=== PATIENT | male | born 1960 | race Caucasian/White ===

== ENCOUNTER → 2020-01-03 14:23 | Outpatient (BNVA) | payer MEDICAID, SELFPAY | PROVIDERS: PCP Internal Medicine; Referring Provider Internal Medicine; Visit Provider Nurse Practitioner | DX: K59.04 Chronic idiopathic constipation (principal); K21.9 Gastro-esophageal reflux disease without esophagitis; Z79.899 Other long term (current) drug therapy | CPT/HCPCS: 99212 ==

== ENCOUNTER → 2020-04-09 14:57 | Outpatient (BNVA) | payer MEDICAID, SELFPAY | PROVIDERS: PCP Internal Medicine; Visit Provider Nurse Practitioner ==

== ENCOUNTER → 2020-10-01 15:11 | Outpatient (BNVA) | payer MEDICAID, SELFPAY | PROVIDERS: PCP Internal Medicine; Visit Provider Nurse Practitioner ==

== ENCOUNTER → 2020-11-05 15:32 | Outpatient (BNVA) | payer MEDICAID, SELFPAY | PROVIDERS: PCP Internal Medicine; Visit Provider Nurse Practitioner ==

== ENCOUNTER → 2020-11-28 15:21 | Outpatient (BNVA) | payer MEDICAID, SELFPAY | PROVIDERS: PCP Internal Medicine; Visit Provider Nurse Practitioner ==

== ENCOUNTER → 2021-01-23 13:19 | Outpatient (BNVA) | payer MEDICAID, SELFPAY | PROVIDERS: PCP Internal Medicine; Visit Provider Nurse Practitioner ==

== ENCOUNTER → 2021-06-19 16:44 | Outpatient (BNVA) | payer MEDICAID, SELFPAY | PROVIDERS: PCP Internal Medicine; Referring Provider Internal Medicine; Visit Provider Nurse Practitioner | DX: K59.04 Chronic idiopathic constipation (principal); R63.4 Abnormal weight loss; Z55.0 Illiteracy and low-level literacy | CPT/HCPCS: 99212 ==

== ENCOUNTER → 2021-06-25 08:23 | Outpatient (RCR) | payer MEDICAID, SELFPAY ==
--- NOTE | 2020-01-10 16:41 | MHC.PT.EP ---
[facility] [place] Office [place] Office [place] Office [address] Elisha Saavedra [address] [phone] F: [phone] F: [phone] F: [phone] F: [phone] Physical Therapy Plan of Care Date of Evaluation: 01/10/20 Date of Surgery: Diagnosis: L shoulder internal derangement. Assessment: Pt is a 59 y/o male referred to PT for eval and treat of L shoulder internal derangement who presents with L shoulder dysfunction resulting in decreased ability for reaching high shelves, lifting objects of weight, dressing pullovers, performing heavy HH chores, as well as reaching his back and neck for hygiene and dressing secondary to decreased L shoulder ROM and strength, L scapular wing, decreased scapular posture, long Hx of l shoulder dysfunction and pain. Pt is deemed an appropriate candidate to receive skilled PT services to address his physical impairments in order to improve his functional ability. Frequency and Duration: The patient will be seen 2x/ wk x 4 wks. Short Term Goals: In 1 week: initiate HEP with evidence of compliance. Stage Director Goals: In 4 weeks: I with home program. In 4 weeks: Improve L shoulder flexion to > 139 degrees; initial 105 degrees. In 4 weeks: Decreased subjective disability questionnaire (SPADI) by > 12 points. initial: 110/130. Treatment Plan: Modalities to reduce pain, spasms and effusion. Manual therapy to restore motion and function. Therapeutic exercise to improve strength and flexibility. Neuromuscular re-education for posture and balance. Therapeutic activities to return to functional activities of daily living. Please sign and return to therapist. Thank you for your referral.
--- NOTE | 2020-03-11 09:32 | MHC.PT.DC ---
[facility] [place] Office [place] Office [place] Office [address] Delmy Saavedra [address] [phone] F: [phone] F: [phone] F: [phone] F: [phone] Physical Therapy Discharge Report Diagnosis: L shoulder internal derangement. Date of Surgery: Date of Evaluation: 01/10/20 Date of Discharge: 03/11/20 Treatments to Date: 1 Cancellations to Date: 2 No Shows to Date: 2 Discharge Status: Visit Non-compliance Discharge Summary: Pt logged x 2 cancellations and x 2 no-show appointments after attending his initial evaluation and is DC'd per attendance policy. Electronically signed by: Moses Louise PT. Please sign and return to therapist. Thank you for your referral.
== END | disposition home or self-care (01) ==
LOC: HO.PTCHIC 01-10 15:21
PROVIDERS: PCP Internal Medicine; Visit Provider Orthopaedic Surgery
DX: M24.812 Other specific joint derangements of left shoulder, not elsewhere classified (principal)
CPT/HCPCS: 97110; 97162

== ENCOUNTER → 2021-07-11 15:05 | Outpatient (BNVA) | payer MEDICAID, SELFPAY | PROVIDERS: PCP Internal Medicine; Referring Provider Internal Medicine; Visit Provider Nurse Practitioner | DX: K59.04 Chronic idiopathic constipation (principal); K21.9 Gastro-esophageal reflux disease without esophagitis; R14.0 Abdominal distension (gaseous); R63.4 Abnormal weight loss; Z55.0 Illiteracy and low-level literacy | CPT/HCPCS: 99212 ==

== ENCOUNTER → 2021-08-11 15:09 | Outpatient (BNVA) | payer MEDICAID, SELFPAY | PROVIDERS: PCP Internal Medicine; Visit Provider Nurse Practitioner | DX: K59.04 Chronic idiopathic constipation (principal); K21.9 Gastro-esophageal reflux disease without esophagitis; R14.0 Abdominal distension (gaseous); Z55.0 Illiteracy and low-level literacy | CPT/HCPCS: 99212 ==

== ENCOUNTER 2021-11-12 15:06 | Outpatient (REF) | payer MEDICAID, SELFPAY ==
--- NOTE | ~2021-11-12 | XR_ITS ---
EXAMINATION: XR ABDOMEN COMPLETE CLINICAL INDICATION: Chronic idiopathic constipation COMPARISON: None TECHNIQUE: AP supine and upright views of the abdomen. FINDINGS: There is no free air under the diaphragm. The lung bases are clear. The bowel gas pattern is normal with no evidence of ileus or obstruction. Significant stool is only noted within the ascending colon. Anastomotic suture material projects over the upper abdomen and lower pelvis. Screws and plate and screws transfix left lower rib fractures. No unusual soft tissue calcifications are noted. XR/XR abdomen min 2V IMPRESSION: No evidence of obstruction. Findings are not consistent with constipation.
[2021-11-12 15:35] LABS: MANUAL DIFF FLAG NO
[2021-11-12 16:31] LABS: Appearance Urine Clear; Color Urine Yellow; Glucose Urine UA Negative (Negative); Leukocyte Esterase Urine Trace (Negative); Nitrite Urine Negative (Negative); PH 6.5 (5.0-9.0); Specific Gravity - Urine 1.015 (1.005-1.025); UMIC TRIGGER UACC YES; Urine Blood Large (3+) (Negative); Urine Ketones Negative (Negative); Urine Protein Negative (Neg-Trace)
[2021-11-12 17:43] LABS: Basophils Absolute Auto 0.1 X10*3/uL (0.0-0.2); Basophils Percent Auto 1.1 % (0-2); Eosinophils Absolute Auto 0.2 X10*3/uL (0.0-0.4); Hematocrit 39.6 % (42.0-52.0); Hemoglobin 13.1 g/dl (14.0-18.0); Imm Gran Abs Auto 0.02 X10*3/uL (0.00-0.03); Imm Gran Pct Auto 0.3 % (0.0-0.4); Lymphocytes Absolute Auto 2.5 X10*3/uL (1.2-4.9); Lymphocytes Percent Auto 32.5 % (20-40); Mean Corpuscular HGB Conc 33.1 g/dl (31.0-36.0); Mean Corpuscular Hemoglobin 32.2 pg (27.0-33.0); Mean Corpuscular Volume 97.3 fL (80.0-98.0); Mean Platelet Volume 9.2 fL (9.4-12.4); Monocytes Absolute Auto 0.4 X10*3/uL (0.1-1.2); Monocytes Percent Auto 5.7 % (2-11); Neutrophils Absolute Auto 4.4 x10*3/uL (2.0-8.3); Neutrophils Percent Auto 57.4 % (45-73); Platelet Count 309 X10*3/uL (160-400); Red Blood Count 4.07 X10*6/uL (4.60-5.80); Red Cell Distribution Width 12.8 % (11.0-16.0); White Blood Count 7.6 X10*3/uL (4.8-10.8)
[2021-11-12 18:06] LABS: Bacteria Urine None Seen (None Seen); Hyaline Casts Urine 0-2 /LPF (0-2); RBC Urine >20 /HPF (0-2); Squamous Epithelial Cell Urine 0-2 /HPF (0-2); WBC Urine 0-5 /HPF (0-5)
[2021-11-12 18:08] LABS: Alanine Aminotransferase 12 U/L (0-40); Albumin Level 4.6 g/dL (3.5-5.0); Alkaline Phosphatase 77 U/L (39-117); Anion Gap 16 (12-20); Aspartate Amino Transferase 19 U/L (5-37); Bilirubin Total 0.7 mg/dL (0.0-1.0); Blood Urea Nitrogen 12 mg/dL (9-16); Calcium 9.5 mg/dL (8.4-10.2); Carbon Dioxide 29 mmol/L (22-29); Chloride 101 mmol/L (96-108); Estimated Glomerular Filt Rate > 60; Glucose Random 81 mg/dL (60-115); Potassium 4.7 mmol/L (3.3-5.1); Sodium 141 mmol/L (135-145); Total Protein 7.3 g/dL (6.5-8.0)
[2021-11-12 18:18] LABS: TSH reflex Free T4 10.19 uIU/mL (0.32-4.0)
[2021-11-12 18:57] LABS: Free T4 (Free Thyroxine) 1.23 ng/dL (0.71-1.85)
== END 2021-11-12 15:07 | disposition home or self-care (01) ==
LOC: HO.LAB 15:06
PROVIDERS: PCP Internal Medicine; Visit Provider Nurse Practitioner
DX: R63.4 Abnormal weight loss (principal); K59.04 Chronic idiopathic constipation; K21.9 Gastro-esophageal reflux disease without esophagitis; R14.0 Abdominal distension (gaseous); Z55.0 Illiteracy and low-level literacy
CPT/HCPCS: 36415; 74019; 80053; 81001; 84439; 84443; 85025; 99212

== ENCOUNTER → 2022-01-13 16:07 | Outpatient (BNVA) | payer MEDICAID, SELFPAY | PROVIDERS: PCP Internal Medicine; Visit Provider Nurse Practitioner | DX: K59.04 Chronic idiopathic constipation (principal); K21.9 Gastro-esophageal reflux disease without esophagitis; R14.0 Abdominal distension (gaseous); R30.0 Dysuria; R63.4 Abnormal weight loss; Z79.899 Other long term (current) drug therapy; Z55.0 Illiteracy and low-level literacy | CPT/HCPCS: 99212 ==

== ENCOUNTER 2022-05-28 11:50 | Outpatient (REF) | payer MEDICAID, SELFPAY | END 2022-05-28 11:51 | disposition home or self-care (01) | LOC: HO.NEURO 11:50 | PROVIDERS: PCP Internal Medicine; Visit Provider Internal Medicine | DX: Z13.89 Encounter for screening for other disorder (principal) ==

== ENCOUNTER → 2022-07-14 14:39 | Outpatient (BNVA) | payer MEDICAID, SELFPAY | PROVIDERS: PCP Internal Medicine; Referring Provider Internal Medicine; Visit Provider Nurse Practitioner | DX: K59.04 Chronic idiopathic constipation (principal); K21.9 Gastro-esophageal reflux disease without esophagitis; R14.0 Abdominal distension (gaseous); G47.00 Insomnia, unspecified; F32.A Depression, unspecified; Z55.0 Illiteracy and low-level literacy; Z79.899 Other long term (current) drug therapy | CPT/HCPCS: 99212 ==

== ENCOUNTER → 2022-08-11 14:35 | Outpatient (BNVA) | payer MEDICAID, SELFPAY | PROVIDERS: PCP Internal Medicine; Visit Provider Nurse Practitioner | DX: K59.04 Chronic idiopathic constipation (principal); K21.9 Gastro-esophageal reflux disease without esophagitis; G47.00 Insomnia, unspecified; Z79.899 Other long term (current) drug therapy; Z55.0 Illiteracy and low-level literacy | CPT/HCPCS: 99212 ==

== ENCOUNTER 2022-10-06 15:18 | Outpatient (REF) | payer MEDICAID, SELFPAY ==
--- NOTE | ~2022-10-06 | US_ITS ---
EXAMINATION: US VENOUS ULTRASOUND WITH DOPPLER LOWER EXTREMITY, BILATERAL CLINICAL INFORMATION: Chronic leg pain with question of DVT COMPARISON: None available. TECHNIQUE: Ultrasound of the deep veins is performed from the hip to the calf with compression sonography and color and pulse Doppler assessment. Spectral analysis with color-flow imaging is performed. FINDINGS: RIGHT: There is normal venous compression and respiratory variation and augmented flow. The visualized common femoral vein, superficial femoral vein, profunda femoral vein, popliteal vein, and the trifurcation region shows no evidence of deep venous thrombosis. There is no significant popliteal fossa cyst. LEFT: There is normal venous compression and respiratory variation and augmented flow. The visualized common femoral vein, superficial femoral vein, profunda femoral vein, popliteal vein, and the trifurcation region shows no evidence of deep venous thrombosis. There is no significant popliteal fossa cyst. If the patient's symptoms persist, followup ultrasound in 5 days 7 days might be of value to exclude proximal propagation from a non-visualized calf vein. US/US venous duplex LE BI IMPRESSION: No DVT demonstrated in either lower extremity.
== END 2022-10-06 15:19 | disposition home or self-care (01) ==
LOC: HO.US 15:18
PROVIDERS: PCP Internal Medicine; Visit Provider Registered Nurse
DX: I83.813 Varicose veins of bilateral lower extremities with pain (principal)
CPT/HCPCS: 93970

== ENCOUNTER 2022-10-13 15:46 | Outpatient (REF) | payer MEDICAID, SELFPAY ==
[2022-10-13 17:33] LABS: MANUAL DIFF FLAG NO
[2022-10-13 17:52] LABS: Basophils Absolute Auto 0.1 X10*3/uL (0.0-0.2); Basophils Percent Auto 0.8 % (0-2); Eosinophils Absolute Auto 0.3 X10*3/uL (0.0-0.4); Hematocrit 42.9 % (42.0-52.0); Hemoglobin 13.9 g/dl (14.0-18.0); Imm Gran Abs Auto 0.05 X10*3/uL (0.00-0.03); Imm Gran Pct Auto 0.6 % (0.0-0.4); Lymphocytes Absolute Auto 2.7 X10*3/uL (1.2-4.9); Lymphocytes Percent Auto 32.5 % (20-40); Mean Corpuscular HGB Conc 32.4 g/dl (31.0-36.0); Mean Corpuscular Hemoglobin 31.4 pg (27.0-33.0); Mean Corpuscular Volume 97.1 fL (80.0-98.0); Mean Platelet Volume 9.1 fL (9.4-12.4); Monocytes Absolute Auto 0.4 X10*3/uL (0.1-1.2); Monocytes Percent Auto 4.8 % (2-11); Neutrophils Absolute Auto 4.8 x10*3/uL (2.0-8.3); Neutrophils Percent Auto 57.3 % (45-73); Platelet Count 318 X10*3/uL (160-400); Red Blood Count 4.42 X10*6/uL (4.60-5.80); Red Cell Distribution Width 13.9 % (11.0-16.0); White Blood Count 8.4 X10*3/uL (4.8-10.8)
[2022-10-13 17:54] LABS: Cholesterol 370 mg/dL (<200); HDL Cholesterol 64 mg/dL (>40); LDL Cholesterol Calculated 231 mg/dL (<100); Triglycerides 378 mg/dL (<150)
[2022-10-13 18:33] LABS: Alanine Aminotransferase 29 U/L (0-40); Albumin Level 4.6 g/dL (3.5-5.0); Alkaline Phosphatase 81 U/L (39-117); Anion Gap 17 (12-20); Aspartate Amino Transferase 30 U/L (5-37); Bilirubin Direct 0.1 mg/dL (0.0-0.5); Bilirubin Total 0.6 mg/dL (0.0-1.0); Blood Urea Nitrogen 16 mg/dL (9-16); Calcium 10.2 mg/dL (8.4-10.2); Carbon Dioxide 28 mmol/L (22-29); Chloride 101 mmol/L (96-108); Estimated Glomerular Filt Rate 45; Glucose Random 81 mg/dL (60-115); Potassium 4.6 mmol/L (3.3-5.1); Sodium 141 mmol/L (135-145); Total Protein 7.6 g/dL (6.5-8.0)
[2022-10-13 18:41] LABS: Prostate Specific Antigen 0.35 ng/mL (<0.05-4.0)
[2022-10-13 18:57] LABS: TSH reflex Free T4 > 100.00 uIU/mL (0.32-4.0)
[2022-10-13 20:07] LABS: Reflex LDLD? No
[2022-10-13 20:17] LABS: Free T4 (Free Thyroxine) < 0.42 ng/dL (0.71-1.85)
[2022-10-14 03:58] LABS: HIV AB/AG Nonreactive (Nonreactive); HIV Num 1 0.06 S/CO (0.00-0.99)
[2022-10-14 03:59] LABS: ~HepC Num1 0.08 S/CO (0.00-0.79); ~Hepatitis C Antibody Nonreactive (Nonreactive)
== END 2022-10-13 15:47 | disposition home or self-care (01) ==
LOC: HO.HHCL 15:46
PROVIDERS: Visit Provider Internal Medicine
DX: Z11.4 Encounter for screening for human immunodeficiency virus [HIV] (principal); I10 Essential (primary) hypertension; E03.9 Hypothyroidism, unspecified
CPT/HCPCS: 36415; 80048; 80061; 80076; 84153; 84439; 84443; 85025; 86803; 87389

== ENCOUNTER 2022-10-21 15:16 | Outpatient (AMB) | payer MEDICAID, SELFPAY ==
--- NOTE | 2022-10-21 15:22 | MHC.OFFVIS ---
Intake Vital Signs 10/21/22 15:23 Height 5 ft 5 in Weight 165 lb 12.602 oz BMI 27.6 BP 132/86 Blood Pressure Location Rt brachial Position Sitting Pulse 62 Intake Visit Reasons: 4 week fu Intake Note: Patient presents to in office follow up for CIC and GERD. CC: Patient reports he was not able to have a BM in 2 weeks but was able to go yesterday and it was diarrhea. He also c/o bloating, abdominal pain, dizziness, nausea, and loss of appetite. Rehabilitation Coordinator Required: No Accompanied by: Self / Same As Patient Allergies ibuprofen [IBUPROFEN] Allergy (Intermediate, Verified 11/06/22 14:46) KIDNEY ISSUES Penicillins [PENICILLINS] Allergy (Intermediate, Verified 11/06/22 14:46) RASH Motrin Allergy (Unknown, Uncoded 07/11/21 15:38) kidney damage Medication List - Last Reconciled 10/21/22 by KURTIS Staley albuterol sulfate 90 mcg/actuation (ProAir HFA) 2 puffs inhalation Q4-6H PRN albuterol sulfate mg inhalation Q4-6H PRN atorvastatin 40 mg PO BEDTIME bisacodyl (Dulcolax (bisacodyl)) 10 mg (2 x 5 mg) PO BEDTIME 30 days epinephrine 0.3 mL IM ONCE PRN fluticasone propionate 50 mcg/actuation 1 spray intranasal BID fluticasone propionate 220 mcg/actuation (Flovent HFA) 1 puff inhalation gabapentin 400 mg PO QID levothyroxine 137 mcg PO QAM linaclotide (Linzess) 72 mcg PO QAM lisinopril-hydrochlorothiazide 10-12.5 mg 1 tab PO QAM methadone 81 mg PO DAILY mirtazapine 15 mg PO BEDTIME montelukast 10 mg PO QAM multivitamin 1 tab PO QPM nicotine 1 patch topical DAILY omega 4-imh-rtk-fish oil 300 mg (120 mg- 180mg)-1,000 mg 1 cap PO omeprazole 40 mg PO DAILY 30 days simethicone 180 mg PO .TIDAC 30 days HPI 4 week fu HPI Details Assessment & Plan (1) Chronic idiopathic constipation: ?Code(s): K59.04 - Chronic idiopathic constipation ?Plan: He never received the mirtazepine becasue he could not find the [employer] [facility], so he has us send it to [facility] on [facility]. He is stable with his CIC and GERD on his omeprazole, Linzess 72 and bisacodyl along with simethicone.? His only other complaint is feeling of discomfort in his ear but we do not have otoscopes available to look at this so I suggest he stop in to see his primary care provider. Return office visit in 4 weeks (2) GERD (gastroesophageal reflux disease): ?Code(s): K21.9 - Gastro-esophageal reflux disease without esophagitis (3) Illiterate: ?Code(s): Z55.0 - Illiteracy and low-level literacy (4) Depression: ?Code(s): F32.A - Depression, unspecified (5) Insomnia: ?Code(s): G47.00 - Insomnia, unspecified ? ? ? Medications: Refilled mirtazapine 15 mg? PO BEDTIME 30 tabs 3RF F32.A - Depression , unspecified ? TODAY'S VISIT He says he has been feeling unwell for a month. He is feeling like his BP is pounding and my arms are pounding and I get up feeling dehydrated. He started with bloating and lack of appetite and he was not moving his bowels. He was continuing his LInzess 72 qod, then he started taking it every day. He has early satiety. The sx slowly worsened with the lack of BM. He continues on the methadone but his dose has been decreased to 81mg. HE has not changed his diet prior to the onset of this. He has not been sleeping in his bed r/t feeling so uncomfortable, he feels very bloated and I can't burp. He then admits that he went w/o his levothyroxine for 3 weeks, and just restarted it this week. Dr. Peterson counselled him this CAN NOT HAPPEN!! And this is the likely reason for all of his current problems. He also is c/o diziness and fatigue. Advised to get Gatoraide and drink instead of water. I will get XR of abd, start a temp rx of reglan qidachs 5mg, and get PA for LInzess 72mcg (he was taking an old dose of higher strenth he had left over at home, the likely cause of diarrhea). He feels he is losing weight. He c/o not being able to take docusate, I am not prescribing this so holding it is okay. ROV 2 weeks. [facility] Medical History Chronic low back pain Depression Erectile dysfunction Hemorrhoids High cholesterol Nephrolithiasis Substance abuse Surgical History Hx of colonoscopy Hx of cystoscopy (~2000) Hx of dilation of urethra (~2000) Hx of hemorrhoidectomy (~2007) Family History Father Emphysema lung Heart disease Mother Diabetes Heart problem HTN (hypertension) Family/Other HTN (hypertension) Heart problem Social History Alcohol intake: current Alcohol intake frequency: does not drink Cigarettes Per Day: 2 Substance Use Type: Marijuana Review of Systems Const Reports fatigue, Denies fever(s), Reports malaise, Denies night sweats, Denies poor appetite and Denies weight loss ENT Reports Normal hearing present, Denies dental pain, Denies dysphagia, Denies hearing loss, Denies mouth pain, Denies odynophagia, Denies throat swelling, Denies tongue swelling and Reports other (Dentition adequate) Card Reports no additional complaints Resp Reports no additional complaints GI Reports abdominal pain, Denies melena, Reports bloating, Denies hematochezia, Reports constipation, Denies GI cramping, Denies dysphagia, Denies excessive flatus, Denies early satiety, Reports heartburn, Denies diarrhea, Denies nausea, Denies odynophagia, Denies vomiting and Denies hematemesis Skin/Breast Denies pruritus, Denies lesions, Denies rash and Denies jaundice Neuro Reports Normal hearing present and Denies Abnormal speech present Endo Reports fatigue Aller/Immun Denies throat swelling and Denies tongue swelling Physical Exam Vital Signs: Last Vital Signs Pulse 62 10/21/22 15:23 BP 132/86 10/21/22 15:23 BMI result Body Mass Index 27.6 Const General: cooperative, no acute distress, well developed and well groomed Nutritional Appearance: well nourished and obese Orientation/consciousness: oriented to person, oriented to place and oriented to time Limitations: No language barrier, ambulation with cane and other limitations HEENT Head: Yes normocephalic and Yes atraumatic Eyes General: appearance normal, both eyes and all related structures Pupils: Equal, round and reactive pupils present Neck Neck: Yes normal visual inspection and Yes no lymphadenopathy Thyroid: Thyroid normal Resp Effort & Inspection: normal respiratory effort and able to speak in complete sentences Auscultation: clear to auscultation bilaterally Cardio Rate: regular rate Rhythm: regular rhythm Heart sounds: Normal, physiologic split S2 sound present Peripheral pulses: radial pulses present and posterior tibial pulses present GI Inspection: No distended, No Abdominal panniculus present and Yes obesity Palpation (GI): Soft to palpation, nontender, no guarding, not rigid and No hepatosplenomegaly present Percussion: Yes normal to percussion Auscultation: normal bowel sounds Rectal Exam - Male: Yes deferred Skin General skin exam: no rashes or lesions noted, turgor normal, skin not dry, no jaundice, No spider nevi and no striae Rashes: no rashes Nails: normal Neuro General: oriented to person, oriented to place and oriented to time Cranial nerves: Yes Equal, round and reactive pupils present and Yes Normal hearing present Speech: No Abnormal speech present Extrem General: Yes normal to inspection, No clubbing, No cyanosis and No edema Psych Appearance: grossly normal and well kempt Mental Status: mental status grossly normal Speech and movement: Normal speech and movement present Affect: normal affect Attitude: cooperative Thought process: Normal thought process present and not confabulating Thought content: Normal thought content present Insight: Limited insight present (Psych) Judgement: Limited judgement present (Psych) Assessment & Plan Assessment & Plan (1) Chronic idiopathic constipation: Code(s): K59.04 - Chronic idiopathic constipation Plan: He says he has been feeling unwell for a month. He is feeling like his BP is pounding and my arms are pounding and I get up feeling dehydrated. He started with bloating and lack of appetite and he was not moving his bowels. He was continuing his LInzess 72 qod, then he started taking it every day. He has early satiety. The sx slowly worsened with the lack of BM. He continues on the methadone but his dose has been decreased to 81mg. HE has not changed his diet prior to the onset of this. He has not been sleeping in his bed r/t feeling so uncomfortable, he feels very bloated and I can't burp. He then admits that he went w/o his levothyroxine for 3 weeks, and just restarted it this week. Dr. Peterson counselled him this CAN NOT HAPPEN!! And this is the likely reason for all of his current problems. He also is c/o diziness and fatigue. Advised to get Gatoraide and drink instead of water. I will get XR of abd, start a temp rx of reglan qidachs 5mg, and get PA for LInzess 72mcg (he was taking an old dose of higher strenth he had left over at home, the likely cause of diarrhea). He feels he is losing weight. He c/o not being able to take docusate, I am not prescribing this so holding it is okay. ROV 2 weeks. (2) Abdominal bloating: Code(s): R14.0 - Abdominal distension (gaseous) (3) Nausea and vomiting: Code(s): R11.2 - Nausea with vomiting, unspecified (4) Hypothyroid: Code(s): E03.9 - Hypothyroidism, unspecified (5) GERD (gastroesophageal reflux disease): Code(s): K21.9 - Gastro-esophageal reflux disease without esophagitis (6) Illiterate: Code(s): Z55.0 - Illiteracy and low-level literacy (7) Insomnia: Code(s): G47.00 - Insomnia, unspecified (8) Depression: Code(s): F32.A - Depression, unspecified Orders: Orders XR abdomen w decubitus 10/21/22 R14.0 - Abdominal distension (gaseous), K59.04 - Chronic idiopathic constipation Medications: New hydrocortisone 2.5% (Proctosol HC) BE SURE TO INCLUDE RECTAL APPICATOR!! 1 appl MD BID 30 grams 6RF hemorrhoids K64.9 - Unspecified hemorrhoids metoclopramide HCl (Reglan) Please verbally instruct patient to take this 4 times a day even if he does not eat. He can not read or write. 5 mg PO QIDACHS 120 tabs 3RF R11.2 - Nausea with vomiting, unspecified Refilled linaclotide (Linzess) 72 mcg PO QAM 30 caps 6RF K59.04 - Chronic idiopathic constipation mirtazapine 15 mg PO BEDTIME 30 tabs 3RF F32.A - Depression, unspecified linaclotide (Linzess) 72 mcg PO QAM 30 caps 6RF K59.04 - Chronic idiopathic constipation simethicone after meals 180 mg PO .TIDAC 90 caps 6RF 30 days R14.0 - Abdominal distension (gaseous) Coding Level of Care Code Est Pt Level 4 (96729) Diagnoses Chronic idiopathic constipation K59.04 Abdominal bloating R14.0 Nausea and vomiting R11.2 Hypothyroid E03.9 GERD (gastroesophageal reflux disease) K21.9 Illiterate Z55.0 Insomnia G47.00 Depression F32.A
[2022-10-21 15:23] VITALS: BP 132/86; PULSE 62; BMI 27.6
== END 2022-10-21 16:09 | disposition home or self-care (01) ==
PROVIDERS: PCP Internal Medicine; Visit Provider Nurse Practitioner
DX: K59.04 Chronic idiopathic constipation (principal); R14.0 Abdominal distension (gaseous); R11.2 Nausea with vomiting, unspecified; E03.9 Hypothyroidism, unspecified; K21.9 Gastro-esophageal reflux disease without esophagitis; Z55.0 Illiteracy and low-level literacy; G47.00 Insomnia, unspecified; F32.A Depression, unspecified
CPT/HCPCS: 99214

== ENCOUNTER → 2022-10-21 15:16 | Outpatient (BNVA) | payer MEDICAID, SELFPAY | PROVIDERS: PCP Internal Medicine; Visit Provider Nurse Practitioner | DX: K59.04 Chronic idiopathic constipation (principal); R14.0 Abdominal distension (gaseous); K21.9 Gastro-esophageal reflux disease without esophagitis; R11.2 Nausea with vomiting, unspecified; G47.00 Insomnia, unspecified; E03.9 Hypothyroidism, unspecified; F32.A Depression, unspecified; Z55.0 Illiteracy and low-level literacy | CPT/HCPCS: 99212 ==

== ENCOUNTER 2022-11-03 12:47 | Outpatient (REF) | payer MEDICAID, SELFPAY ==
--- NOTE | ~2022-11-03 | XR_ITS ---
EXAMINATION: XR ABDOMEN WITH DECUBITUS VIEWS CLINICAL INDICATION: Abdominal distention COMPARISON: 11/12/2021. TECHNIQUE: 4 view abdomen FINDINGS: No radiographic evidence of bowel obstruction. Solid visceral outlines are obscured. No abnormal calcifications. Herniorrhaphy material, left rib hardware and partial visualization of the thoracic hardware. Left base atelectasis. XR/XR abdomen w decubitus IMPRESSION: Nonobstructive bowel pattern.
== END 2022-11-03 12:48 | disposition home or self-care (01) ==
LOC: HO.XRAY 12:47
PROVIDERS: PCP Internal Medicine; Visit Provider Nurse Practitioner
DX: K59.04 Chronic idiopathic constipation (principal); R14.0 Abdominal distension (gaseous)
CPT/HCPCS: 74021

== ENCOUNTER 2022-11-06 14:39 | Outpatient (AMB) | payer MEDICAID, SELFPAY ==
--- NOTE | 2022-11-06 14:42 | A.OFFVIS_ITS ---
Intake Vital Signs 11/06/22 14:44 Height 5 ft 5 in Weight 172 lb BMI 28.6 BP 99/57 L Blood Pressure Location Rt brachial Position Sitting Pulse 88 Intake Visit Reasons: 2 week follow up Intake Note: Patient presents to in 2 weeks office follow up of Xray. CC: Patient reports he continues to have bloating, abdominal pain, and poor appetite. Patient also c/o nausea and GERD. He has been taking Linzess at night and reports having diarrhea in the morning. 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 He is feeling like his BP is pounding and my arms are pounding and I get up feeling dehydrated. He started with bloating nad lack of appetite and he was not moving his bowels. He was continuing his LInzess 72 qod, then sh started taking it every day. He has early satiety. THe sx slowly worsened with the lack of BM. He continues on the methadone but his dose has been decreased to 81mg. HE has not changed his diet prior to the onset of this. He has not been sleeping in his bed r/t feeling so uncomfortable, he feels very bloated and I can't burp. He then admits that he went w/o his levothyroxine for 3 weeks, and just restarted it this week. Dr. Peterson counselled him this CAN NOT HAPPEN!! And this is the likely reason for all of his current problems. He also is c/o diziness and fatigue. Advised to get Gatoraide and drink instead of water. I will get XR of abd, start a temp rx of reglan qidachs 5mg, and get PA for LInzess 72mcg (he was taking an old dose of higher strenth he had left over at home, the likely cause of diarrhea). He feels he is losiing weight. He c/o not being able to take docusate, I am not prescribing this so holding it is okay. ROV 2 weeks. Assessment & Plan (1) Chronic idiopathic constipation: Code(s): K59.04 - Chronic idiopathic constipation (2) GERD (gastroesophageal reflux diseas e): Code(s): K21.9 - Gastro-esophageal reflux disease without esophagitis (3) Illiterate: Code(s): Z55.0 - Illiteracy and low-level literacy (4) Insomnia: Code(s): G47.00 - Insomnia, unspecified (5) Depression: Code(s): F32.A - Depression, unspecified (6) Nausea and vomiting: Code(s): R11.2 - Nausea with vomiting, unspecified (7) Hypothyroid: Code(s): E03.9 - Hypothyroidism, unspecified (8) Abdominal bloating: Code(s): R14.0 - Abdominal distension (gaseous) Orders: Orders XR abdomen w decub itus Today K59.04 - Chronic i diopathic constipa tion, R14.0 - Abdo sridhar distension ( gaseous) Medications: New metoclopramide HCl (Reglan) Pleas e verbally instruc t patient to take this 4 times a day even if he does n ot eat. He can not read or write. 5 mg PO QIDACHS 1 20 tabs 3RF R11.2 - Nausea wit h vomiting, unspec ified hydrocortisone 2.5 % (Proctosol HC) BE SURE TO INCLU DE RECTAL APPICATO R!! 1 appl WI BID 30 grams 6RF hemorrho ids K64.9 - Unspecifie d hemorrhoids Refilled linaclotide (Linze ss) 72 mcg PO QAM 30 caps 6RF K59.04 - Chronic i diopathic constipa tion linaclotide (Linze ss) 72 mcg PO QAM 30 caps 6RF K59.04 - Chronic i diopathic constipa tion simethicone aft er meals 180 mg PO .TIDAC 30 days 90 caps 6R F R14.0 - Abdominal distension (gaseou s) mirtazapine 15 mg PO BEDTIME 30 tabs 3RF F32.A - Depression , unspecified xr abd 11/04/22 FINDINGS: No radiographic evidence of bowel obstruction. Solid visceral outlines are obscured. No abnormal calcifications. Herniorrhaphy material, left rib hardware and partial visualization of the thoracic hardware. Left base atelectasis. XR/XR abdomen w decubitus IMPRESSION: Nonobstructive bowel pattern. TODAY'S VISIT HE is continuing on his levothyroxine in the am. Because of this he is taking the Linzess 72mcg in the evening, but it gives him occasional am diarrhea. His nausea has subsided, but he still has bloating. He has not received the sim ethicone. He just started taking his new thyroid med about 1.5 weeks ago, not long enough for the hormone to stabilize. He forgot to bring his medicines, unsure if he has remiron and reglan. ROV 2 weeks. He has been having work done in his bathroom that is keeping him up and causing him asthms r/t smells of chemical. ON LICENSE OF [facility] Medical History Chronic low back pain Depression Erectile dysfunction Hemorrhoids High cholesterol Nephrolithiasis Substance abuse Surgical History Hx of colonoscopy Hx of cystoscopy (~2000) Hx of dilation of urethra (~2000) Hx of hemorrhoidectomy (~2007) Family History Father Emphysema lung Heart disease Mother Diabetes Heart problem HTN (hypertension) Family/Other HTN (hypertension) Heart problem Social History Alcohol intake: current Alcohol intake frequency: does not drink Cigarettes Per Day: 2 Substance Use Type: Marijuana Review of Systems Const Reports fatigue, Denies fever(s), Denies night sweats, Reports poor appetite and Denies weight loss ENT Reports Normal hearing present, Denies dental pain, Denies dysphagia, Denies hearing loss, Denies mouth pain, Denies odynophagia, Denies throat swelling, Denies tongue swelling and Reports other (Dentition adequate) Card Reports no additional complaints Resp Reports wheezing GI Denies abdominal pain, Denies melena, Reports bloating, Denies hematochezia, Reports constipation, Reports GI cramping, Denies dysphagia, Denies excessive flatus, Denies early satiety, Reports heartburn, Denies diarrhea, Reports nausea, Denies odynophagia, Denies vomiting and Denies hematemesis Musc Reports back pain and Reports arthralgias Skin/Breast Denies pruritus, Denies lesions, Denies rash and Denies jaundice Neuro Reports Normal hearing present and Denies Abnormal speech present Psych Reports anxiety Endo Reports fatigue Aller/Immun Denies throat swelling, Denies tongue swelling and Reports wheezing Physical Exam Vital Signs: Last Vital Signs Pulse 88 11/06/22 14:44 BP 99/57 L 11/06/22 14:44 BMI result Body Mass Index 28.6 Const General: cooperative, no acute distress, well developed and well groomed Nutritional Appearance: well nourished Orientation/consciousness: oriented to person, oriented to place and oriented to time Limitations: No language barrier and ambulation with cane HEENT Head: Yes normocephalic and Yes atraumatic Eyes General: appearance normal, both eyes and all related structures Pupils: Equal, round and reactive pupils present Neck Neck: Yes normal visual inspection and Yes no lymphadenopathy Thyroid: Thyroid normal Resp Effort & Inspection: normal respiratory effort and able to speak in complete sentences Auscultation: clear to auscultation bilaterally Cardio Rate: regular rate Rhythm: regular rhythm Heart sounds: Normal, physiologic split S2 sound present Peripheral pulses: radial pulses present and posterior tibial pulses present GI Inspection: No distended, No Abdominal panniculus present and Yes obesity Palpation (GI): Soft to palpation, nontender, no guarding, not rigid and No hepatosplenomegaly present Percussion: Yes normal to percussion Auscultation: normal bowel sounds Rectal Exam - Male: Yes deferred Skin General skin exam: no rashes or lesions noted, turgor normal, skin not dry, no jaundice, No spider nevi and no striae Rashes: no rashes Nails: normal Neuro General: oriented to person, oriented to place and oriented to time Cranial nerves: Yes Equal, round and reactive pupils present and Yes Normal hearing present Speech: No Abnormal speech present Extrem General: Yes normal to inspection, No clubbing, No cyanosis and No edema Psych Appearance: grossly normal and well kempt Mental Status: mental status grossly normal Speech and movement: Normal speech and movement present Affect: normal affect Attitude: cooperative Thought process: Normal thought process present and not confabulating Thought content: Normal thought content present Insight: Limited insight present (Psych) Judgement: Limited judgement present (Psych) Results Reviewed Results Reviewed: xr abd 11/04/22 FINDINGS: No radiographic evidence of bowel obstruction. Solid visceral outlines are obscured. No abnormal calcifications. Herniorrhaphy material, left rib hardware and partial visualization of the thoracic hardware. Left base atelectasis. XR/XR abdomen w decubitus IMPRESSION: Nonobstructive bowel pattern. Assessment & Plan Assessment & Plan (1) Chronic idiopathic constipation: Code(s): K59.04 - Chronic idiopathic constipation Plan: HE is continuing on his levothyroxine in the am. Because of this he is taking the Linzess 72mcg in the evening, but it gives him occasional am diarrhea. His nausea has subsided, but he still has bloating. He has not received the simethicone. He just started taking his new thyroid med about 1.5 weeks ago, not long enough for the hormone to stabilize. He forgot to bring his medicines, unsure if he has remiron and reglan. ROV 2 weeks. He has been having work done in his bathroom that is keeping him up and causing him asthms r/t smells of chemical. (2) GERD (gastroesophageal reflux disease): Code(s): K21.9 - Gastro-esophageal reflux disease without esophagitis (3) Illiterate: Code(s): Z55.0 - Illiteracy and low-level literacy (4) Nausea and vomiting: Code(s): R11.2 - Nausea with vomiting, unspecified (5) Hypothyroid: Code(s): E03.9 - Hypothyroidism, unspecified Coding Level of Care Code Est Pt Level 3 (57053) Diagnoses Chronic idiopathic constipation K59.04 GERD (gastroesophageal reflux disease) K21.9 Illiterate Z55.0 Nausea and vomiting R11.2 Hypothyroid E03.9
[2022-11-06 14:44] VITALS: BP 99/57; PULSE 88; BMI 28.6
== END 2022-11-06 16:04 | disposition home or self-care (01) ==
PROVIDERS: PCP Internal Medicine; Visit Provider Nurse Practitioner
DX: K59.04 Chronic idiopathic constipation (principal); K21.9 Gastro-esophageal reflux disease without esophagitis; Z55.0 Illiteracy and low-level literacy; R11.2 Nausea with vomiting, unspecified; E03.9 Hypothyroidism, unspecified
CPT/HCPCS: 99213

== ENCOUNTER → 2022-11-06 14:39 | Outpatient (BNVA) | payer MEDICAID, SELFPAY | PROVIDERS: PCP Internal Medicine; Visit Provider Nurse Practitioner | DX: R11.2 Nausea with vomiting, unspecified (principal); K21.9 Gastro-esophageal reflux disease without esophagitis; K59.04 Chronic idiopathic constipation; E03.9 Hypothyroidism, unspecified; Z55.0 Illiteracy and low-level literacy | CPT/HCPCS: 99212 ==

== ENCOUNTER 2022-11-20 16:20 | Outpatient (AMB) | payer MEDICAID, SELFPAY ==
--- NOTE | 2022-11-20 16:20 | MHC.OFFVIS ---
Intake Vital Signs 11/20/22 16:22 Height 5 ft 5 in Weight 174 lb 9.698 oz BMI 29.1 BP 120/65 Blood Pressure Location Lt brachial Position Sitting Pulse 58 Intake Visit Reasons: 2 week follow up Intake Note: Patient presents to in 2 weeks office follow up abdominal pain. CC: Patient reports she has been having a lot of diarrhea, abdominal pain, bloating, and feeling stomach full . He also states he continues to have trouble eating. 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 Becau se of this he is t aking the Linzess 72mcg in the [facility], but it gives h im occasional am d iarrhea. His nause a has subsided, bu t he still has blo ating. He has not received the simet hicone. He just started taking his new thyroid med a bout 1.5 weeks ago , not long enough for the hormone to stabilize. He for got to bring his m edicines, unsure i f he has remiron a nd reglan. ROV 2 weeks. He has bee n having work doen in his bathroom t hat is keeping him up and causing hi m asthms r/t smell s of chemical. Assessment & Plan (1) Chronic idiopathic constipation: Code(s): K59.04 - Chronic idiopathic constipation (2) GERD (gastroesophageal reflux disease): Code(s): K21.9 - Gastro-esophageal reflux disease without esophagitis (3) Illiterate: Code(s): Z55.0 - Illiteracy and low-level literacy (4) Nausea and vomiting: Code(s): R11.2 - Nausea with vomiting, unspecified (5) Hypothyroid: Code(s): E03.9 - Hypothyroidism, unspecified TODAY'S VISIT He continues to have diarrhea, but he is also taking both LInzess 72mcg and bisacodyl. But he says that even if he takes only the LInzess for only the bisacodyl he has diarrhea.....but if he takes nothing he will not move his bowels. I want him to stop both of these and start senna 1-2 tabs qhs. He can stop the reglan now since the N/V has resolved. He does have the simethicone and it is helping despite still having bloating. He continues on his omeprazole 40mg qd. He still is only about 4 weeks out on his new thyroid dose, so he has not reacheck eqalibruium and this is a higher dose than what he had in the past. ROV 3 weeks. [facility] Medical History Chronic low back pain Depression Erectile dysfunction Hemorrhoids High cholesterol Nephrolithiasis Substance abuse Surgical History Hx of colonoscopy Hx of cystoscopy (~2000) Hx of dilation of urethra (~2000) Hx of hemorrhoidectomy (~2007) Family History Father Emphysema lung Heart disease Mother Diabetes Heart problem HTN (hypertension) Family/Other HTN (hypertension) Heart problem Social History Alcohol intake: current Alcohol intake frequency: does not drink Cigarettes Per Day: 2 Substance Use Type: Marijuana Review of Systems Const Denies fatigue, Denies fever(s), Denies night sweats, Denies poor appetite and Denies weight loss ENT Reports Normal hearing present, Denies dental pain, Denies dysphagia, Denies hearing loss, Denies mouth pain, Denies odynophagia, Denies throat swelling, Denies tongue swelling and Reports other (Dentition adequate) Card Reports no additional complaints Resp Reports no additional complaints GI Denies abdominal pain, Denies melena, Reports bloating, Denies hematochezia, Reports constipation, Denies GI cramping, Denies dysphagia, Denies excessive flatus, Denies early satiety, Reports heartburn, Reports diarrhea, Denies nausea, Denies odynophagia, Denies vomiting and Denies hematemesis Skin/Breast Denies pruritus, Denies lesions, Denies rash and Denies jaundice Neuro Reports Normal hearing present and Denies Abnormal speech present Endo Denies fatigue Aller/Immun Denies throat swelling and Denies tongue swelling Physical Exam Const General: cooperative, no acute distress, well developed and well groomed Nutritional Appearance: well nourished and obese Orientation/consciousness: oriented to person, oriented to place and oriented to time Limitations: No language barrier and ambulation with cane HEENT Head: Yes normocephalic and Yes atraumatic Eyes General: appearance normal, both eyes and all related structures Pupils: Equal, round and reactive pupils present Neck Neck: Yes normal visual inspection and Yes no lymphadenopathy Thyroid: Thyroid normal Resp Effort & Inspection: normal respiratory effort and able to speak in complete sentences Auscultation: clear to auscultation bilaterally Cardio Rate: regular rate Rhythm: regular rhythm Heart sounds: Normal, physiologic split S2 sound present Peripheral pulses: radial pulses present and posterior tibial pulses present GI Inspection: No distended, Yes Abdominal panniculus present and Yes obesity Palpation (GI): Soft to palpation, nontender, no guarding, not rigid and No hepatosplenomegaly present Percussion: Yes normal to percussion Auscultation: normal bowel sounds Rectal Exam - Male: Yes deferred Skin General skin exam: no rashes or lesions noted, turgor normal, skin not dry, no jaundice, No spider nevi and no striae Rashes: no rashes Nails: normal Neuro General: oriented to person, oriented to place and oriented to time Cranial nerves: Yes Equal, round and reactive pupils present and Yes Normal hearing present Speech: No Abnormal speech present Extrem General: Yes normal to inspection, No clubbing, No cyanosis and No edema Psych Appearance: grossly normal and well kempt Mental Status: mental status grossly normal Speech and movement: Normal speech and movement present Affect: normal affect Attitude: cooperative Thought process: Normal thought process present and not confabulating Thought content: Normal thought content present Insight: Poor insight present (Psych) Judgement: Poor judgement present (Psych) Assessment & Plan Assessment & Plan (1) Chronic idiopathic constipation: Code(s): K59.04 - Chronic idiopathic constipation Plan: He continues to have diarrhea, but he is also taking both LInzess 72mcg and bisacodyl. But he says that even if he takes only the LInzess for only the bisacodyl he has diarrhea.....but if he takes nothing he will not move his bowels. I want him to stop both of these and start senna 1-2 tabs qhs. He can stop the reglan now since the N/V has resolved. He does have the simethicone and it is helping despite still having bloating. He continues on his omeprazole 40mg qd. He still is only about 4 weeks out on his new thyroid dose, so he has not reacheck eqalibruium and this is a higher dose than what he had in the past. ROV 3 weeks. (2) GERD (gastroesophageal reflux disease): Code(s): K21.9 - Gastro-esophageal reflux disease without esophagitis (3) Hypothyroid: Code(s): E03.9 - Hypothyroidism, unspecified (4) Nausea and vomiting: Code(s): R11.2 - Nausea with vomiting, unspecified (5) Illiterate: Code(s): Z55.0 - Illiteracy and low-level literacy Medications: New sennosides (Senna Laxative) 17.2 mg (2 x 8.6 mg) PO BEDTIME 60 tabs 6RF K21.9 - Gastro-esophageal reflux disease without esophagitis, K59.04 - Chronic idiopathic constipation, R11.2 - Nausea with vomiting, unspecified Discontinued bisacodyl (Dulcolax (bisacodyl)) Discontinued Reason: Doctor's Order 10 mg (2 x 5 mg) PO BEDTIME 30 days 60 tabs 6RF K59.04 - Chronic idiopathic constipation linaclotide (Linzess) Discontinued Reason: Doctor's Order 72 mcg PO QAM 30 caps 6RF K59.04 - Chronic idiopathic constipation metoclopramide HCl (Reglan) Please verbally instruct patient to take this 4 times a day even if he does not eat. He can not read or write. Discontinued Reason: Doctor's Order 5 mg PO QIDACHS 120 tabs 3RF R11.2 - Nausea with vomiting, unspecified Coding Level of Care Code Est Pt Level 3 (60818) Diagnoses Chronic idiopathic constipation K59.04 GERD (gastroesophageal reflux disease) K21.9 Hypothyroid E03.9 Nausea and vomiting R11.2 Illiterate Z55.0
[2022-11-20 16:22] VITALS: BP 120/65; PULSE 58; BMI 29.1
== END 2022-11-20 16:45 | disposition home or self-care (01) ==
PROVIDERS: PCP Internal Medicine; Visit Provider Nurse Practitioner
DX: K59.04 Chronic idiopathic constipation (principal); K21.9 Gastro-esophageal reflux disease without esophagitis; E03.9 Hypothyroidism, unspecified; R11.2 Nausea with vomiting, unspecified; Z55.0 Illiteracy and low-level literacy
CPT/HCPCS: 99213

== ENCOUNTER → 2022-11-20 16:20 | Outpatient (BNVA) | payer MEDICAID, SELFPAY | PROVIDERS: PCP Internal Medicine; Visit Provider Nurse Practitioner | DX: K59.04 Chronic idiopathic constipation (principal); K21.9 Gastro-esophageal reflux disease without esophagitis; R11.2 Nausea with vomiting, unspecified; E03.9 Hypothyroidism, unspecified; Z55.0 Illiteracy and low-level literacy | CPT/HCPCS: 99212 ==

== ENCOUNTER 2022-12-01 13:57 | Outpatient (AMB) | payer MEDICAID, SELFPAY ==
--- NOTE | 2022-12-01 14:21 | MHC.OFFVIS ---
Intake Intake Visit Reasons: Micro Hematuria Intake Note: New Patient presents for initial visit for micro hematuria Urology Medications: none Blood Thinner: none Budget Analyst Required: No Accompanied by: Self / Same As Patient Allergies ibuprofen [IBUPROFEN] Allergy (Intermediate, Verified 12/01/22 15:01) KIDNEY ISSUES Penicillins [PENICILLINS] Allergy (Intermediate, Verified 12/01/22 15:01) RASH Motrin Allergy (Unknown, Uncoded 12/01/22 15:01) kidney damage Medication List - Last Reconciled 12/01/22 by JOSSY Duval- albuterol sulfate 90 mcg/actuation (ProAir HFA) 2 puffs inhalation Q4-6H PRN albuterol sulfate mg inhalation Q4-6H PRN artificial tears(hypromellose) 0.3% 1 drp ophthalmic (eye) Q2-4H PRN atorvastatin 40 mg PO BEDTIME epinephrine 0.3 mL IM ONCE PRN fluticasone propionate 50 mcg/actuation 1 spray intranasal BID fluticasone propionate 220 mcg/actuation (Flovent HFA) 1 puff inhalation gabapentin 400 mg PO QID hydrocortisone 2.5% (Proctosol HC) 1 appl WA BID levothyroxine 137 mcg PO QAM linaclotide (Linzess) 72 mcg PO QAM lisinopril-hydrochlorothiazide 10-12.5 mg 1 tab PO QAM methadone 81 mg PO DAILY mirtazapine 15 mg PO BEDTIME multivitamin 1 tab PO QPM omega 0-dnw-noc-fish oil 300 mg (120 mg- 180mg)-1,000 mg 1 cap PO omeprazole 40 mg PO DAILY 30 days risperidone 3 mg PO BID saliva stimulant comb. no.3 (Biotene Moisturizing Mouth mucosal spray) 1 appl mucous membrane Q2H PRN sennosides (Senna Laxative) 17.2 mg (2 x 8.6 mg) PO BEDTIME simethicone (Gas Relief (simethicone)) 125 mg PO TID-QID PRN simethicone 180 mg PO .TIDAC 30 days HPI HPI Comments History of Present Illness Details Den is a pleasant 60-year-old male patient of Dr. Looney. He has a past medical history of nephrolithiasis, hemorrhoids, erectile dysfunction, depression, substance abuse, chronic low back pain, and hypercholesteremia. He presents to the office today as a new patient for microscopic hematuria. When asked he reports a longstanding history of nicotine dependence. He reports having quit multiple times in his life time however he is currently smoking. He reports previously smoking over 1-2 packs daily however more recently has decreased to 5 cigarettes per day. He denies any previous known chemical exposure. Discussed at length potential causes for microscopic hematuria. Discussed surveillance monitoring verses microscopic hematuria workup in the setting of nicotine dependence. Discussed risks and benefits of surveillance monitoring versus further workup. He discusses following up with Gastroenterology for ongoing abdominal pain he has been experiencing. When asked he reports hesitancy with urination as well as bladder pressure. He otherwise denies urinary urgency, urinary frequency, incontinence, nocturia, hematuria, dysuria, foul smelling urine, flank pain, fever, and or chills. In office urinalysis with 3+ microscopic hematuria otherwise within normal limits. [facility] [place] Medical History Nephrolithiasis Hemorrhoids Erectile dysfunction Depression Substance abuse Chronic low back pain High cholesterol Surgical History Hx of cystoscopy (~2000) Hx of dilation of urethra (~2000) Hx of hemorrhoidectomy (~2007) Hx of colonoscopy Family History Father Emphysema lung Heart disease Mother Diabetes Heart problem HTN (hypertension) Family/Other HTN (hypertension) Heart problem Social History Alcohol intake: current Alcohol intake frequency: does not drink Cigarettes Per Day: 2 Substance Use Type: Marijuana Review of Systems Const Reports as per HPI Eyes Reports no additional complaints ENT Reports no additional complaints Card Reports as per HPI Resp Reports no additional complaints GI Reports as per HPI Reports as per HPI Musc Reports as per HPI Neuro Reports as per HPI Psych Reports as per HPI Endo Reports no additional complaints Physical Exam Const General: cooperative, healthy appearing, comfortable, no acute distress, well developed, alert and awake Orientation/consciousness: patient oriented x3 Limitations: ambulation with cane HEENT Head: Yes normal to inspection, Yes normocephalic and Yes atraumatic Ears: hearing grossly normal bilaterally Eyes General: appearance normal, both eyes and all related structures Neck Neck: Yes normal visual inspection and Yes trachea midline Chest Chest palpation & inspection: normal inspection of the chest Resp Effort & Inspection: normal respiratory effort and able to speak in complete sentences Cardio Rate: regular rate GI Inspection: Yes normal to inspection General: Yes no CVA tenderness Back/Spine/Pelvis Back: no CVA tenderness Skin General skin exam: no rashes or lesions noted Neuro General: patient oriented x3 Extrem General: Yes normal to inspection Psych Appearance: grossly normal and well kempt Mental Status: mental status grossly normal Speech and movement: Normal speech and movement present and Clear speech present Affect: normal affect Attitude: cooperative Thought process: Normal thought process present Thought content: Normal thought content present Insight: Fair insight present (Psych) Judgement: Fair judgement present (Psych) Results AMB Urinalysis, Automated UA Leukoctes 0 Barb/uL Last Edit by saambaa on 12/01/22 14:38 UA Nitrite Negative Last Edit by saambaa on 12/01/22 14:38 UA Urobilinogen 0.2 mg/dL Last Edit by saambaa on 12/01/22 14:38 UA Protein 0 mg/dL Last Edit by saambaa on 12/01/22 14:38 UA pH 6.0 Last Edit by saambaa on 12/01/22 14:38 UA Blood 200 Kieran/uL Last Edit by saambaa on 12/01/22 14:38 UA Specific [place] 1.020 Last Edit by saambaa on 12/01/22 14:38 UA Ketone Negative Last Edit by saambaa on 12/01/22 14:38 UA Bilirubin 0 mg/dL Last Edit by saambaa on 12/01/22 14:38 UA Glucose 0 mg/dL Last Edit by saambaa on 12/01/22 14:38 Results Reviewed Results Reviewed: Laboratory Last Values Urine pH (Auto) 6.0 12/01/22 14:27 Specific [place] (Auto) 1.020 12/01/22 14:27 Urine Protein (Auto) 0 mg/dL 12/01/22 14:27 Glucose (UA)(Auto) 0 mg/dL 12/01/22 14:27 Urine Ketones (Auto) Negative 12/01/22 14:27 Urine Blood (Auto) 200 Kieran/uL 12/01/22 14:27 Urine Nitrite (Auto) Negative 12/01/22 14:27 Urine Bilirubin (Auto) 0 mg/dL 12/01/22 14:27 Urine Urobilinogen (Auto) 0.2 mg/dL 12/01/22 14:27 Leukocyte Esterase (Auto) 0 Barb/uL 12/01/22 14:27 Assessment & Plan Assessment & Plan (1) Microscopic hematuria: Code(s): R31.29 - Other microscopic hematuria (2) Nicotine dependence: Code(s): F17.200 - Nicotine dependence, unspecified, uncomplicated (3) Hesitancy of micturition: Code(s): R39.11 - Hesitancy of micturition (4) Sensation of pressure in bladder area: Code(s): R39.89 - Other symptoms and signs involving the genitourinary system Plan In office urinalysis results reviewed with the patient today; as noted above; will send for urine cytology. Discussed at length potential causes for microscopic hematuria. Discussed at length surveillance monitoring verses further microscopic hematuria workup. Will obtain CT urogram for further assessment evaluation. BUN and creatinine ordered for imaging. Start Flomax as discussed and prescribed. Discussed importance of limiting/quitting smoking for overall health and well-being. Discussed, educated, encouraged on the importance of drinking plenty of water daily. Follow-up in office cystoscopy with imaging and labs to be completed prior; or sooner with any issues, concerns, and or questions. Orders: Orders CT urogram Today R31.0 - Gross hematuria Blood Urea Nitrogen Today R31.29 - Other microscopic hematuria AMB Urinalysis Automated Today Z13.9 - Encounter for screening, unspecified Urine Cytology Today Z13.9 - Encounter for screening, unspecified Creatinine Today R31.29 - Other microscopic hematuria Medications: New tamsulosin 0.4 mg PO BEDTIME 30 days 30 caps 1RF N40.1 - Benign prostatic hyperplasia with lower urinary tract symptoms, R35.1 - Nocturia Coding Level of Care Code New Pt Level 4 (54025) Diagnoses Microscopic hematuria R31.29 Nicotine dependence F17.200 Hesitancy of micturition R39.11 Sensation of pressure in bladder area R39.89
== END 2022-12-01 14:59 | disposition home or self-care (01) ==
PROVIDERS: PCP Internal Medicine; Visit Provider Nurse Practitioner Family
DX: R31.29 Other microscopic hematuria (principal); F17.200 Nicotine dependence, unspecified, uncomplicated; R39.11 Hesitancy of micturition; R39.89 Other symptoms and signs involving the genitourinary system
CPT/HCPCS: 99204

== ENCOUNTER 2022-12-01 13:57 | Outpatient (REF) | payer MEDICAID, SELFPAY | END 2022-12-01 13:58 | disposition home or self-care (01) | LOC: HO.LNP 13:57 | PROVIDERS: PCP Internal Medicine; Visit Provider Nurse Practitioner Family | DX: R31.29 Other microscopic hematuria (principal); R39.11 Hesitancy of micturition; R39.89 Other symptoms and signs involving the genitourinary system; F17.200 Nicotine dependence, unspecified, uncomplicated; Z71.6 Tobacco abuse counseling | CPT/HCPCS: 81003; 88112; 99212 ==

== ENCOUNTER 2023-02-02 14:13 | Outpatient (REF) | payer MEDICAID, SELFPAY ==
[2023-02-02 16:35] LABS: Blood Urea Nitrogen 15 mg/dL (9-16); Estimated Glomerular Filt Rate > 60
[2023-02-02 16:54] LABS: TSH reflex Free T4 3.16 uIU/mL (0.32-4.0)
== END 2023-02-02 14:14 | disposition home or self-care (01) ==
LOC: HO.HHCL 14:13
PROVIDERS: Nurse Practitioner Family; Visit Provider Internal Medicine
DX: R31.29 Other microscopic hematuria (principal); E03.8 Other specified hypothyroidism
CPT/HCPCS: 36415; 82565; 84443; 84520

== ENCOUNTER 2023-03-17 12:52 | Outpatient (REF) | payer MEDICAID, SELFPAY ==
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
== END 2023-03-17 12:53 | disposition home or self-care (01) ==
LOC: HO.NEURO 12:52
PROVIDERS: PCP Internal Medicine; Visit Provider Internal Medicine
DX: R20.0 Anesthesia of skin (principal)
CPT/HCPCS: 95886; 95909

== ENCOUNTER → 2023-03-17 12:59 | Outpatient (BNV) | payer MEDICAID, SELFPAY | PROVIDERS: PCP Internal Medicine; Visit Provider Physical Medicine & Rehabilitation | DX: G57.32 Lesion of lateral popliteal nerve, left lower limb (principal); G60.8 Other hereditary and idiopathic neuropathies | CPT/HCPCS: 95886; 95909 ==

== ENCOUNTER 2023-05-19 14:12 | Outpatient (AMB) | payer MEDICAID, SELFPAY ==
[2023-05-19 14:21] VITALS: BP 112/72; PULSE 80; BMI 29.6
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
== END 2023-05-19 14:44 | disposition home or self-care (01) ==
PROVIDERS: PCP Internal Medicine; Visit Provider Nurse Practitioner
DX: R11.2 Nausea with vomiting, unspecified (principal); Z55.0 Illiteracy and low-level literacy; K21.9 Gastro-esophageal reflux disease without esophagitis; K59.04 Chronic idiopathic constipation
CPT/HCPCS: 99213

== ENCOUNTER → 2023-05-19 14:12 | Outpatient (BNVA) | payer MEDICAID, SELFPAY | PROVIDERS: PCP Internal Medicine; Visit Provider Nurse Practitioner | DX: K59.04 Chronic idiopathic constipation (principal); K21.9 Gastro-esophageal reflux disease without esophagitis; R10.9 Unspecified abdominal pain; R11.2 Nausea with vomiting, unspecified; R14.0 Abdominal distension (gaseous); E03.9 Hypothyroidism, unspecified | CPT/HCPCS: 99212 ==

== ENCOUNTER 2023-06-07 15:43 | Outpatient (REF) | payer MEDICAID, SELFPAY ==
--- NOTE | ~2023-06-07 | MR_ITS ---
EXAMINATION: MR LUMBAR SPINE WITHOUT CONTRAST CLINICAL INFORMATION: Lower extremity pain, back pain, suggestive of L4-L5 lumbar radiculopathy COMPARISON: None available. TECHNIQUE: MRI of the lumbar spine was obtained using routine sequences without contrast. MR/MR lumbar spine wo con FINDINGS/IMPRESSION: Please note that only localizer sequence and T1/T2 sagittal sequences were obtained. Examination was aborted per patient's request. Within these limitations, No listhesis. No evidence of acute compression fracture. The vertebral body heights are preserved. Multilevel disc desiccation without significant disc height loss. The visualized spinal cord is normal in caliber. No evidence of abnormal cord signal. The conus medullaris terminates at L1. There are disc bulges at L2-L3, L3-L4, L4-L5, and L5-S1. There is suggestion of superimposed central disc protrusion at L4-L5. There is no definite evidence of significant spinal canal stenosis or neural foraminal narrowing though evaluation is limited given only sagittal sequences.
== END 2023-06-07 15:44 | disposition home or self-care (01) ==
LOC: HO.MRI 15:43
PROVIDERS: PCP Internal Medicine; Visit Provider Internal Medicine
DX: R20.0 Anesthesia of skin (principal); M54.40 Lumbago with sciatica, unspecified side; G89.29 Other chronic pain
CPT/HCPCS: 72148

== ENCOUNTER 2023-08-11 14:20 | Outpatient (REF) | payer MEDICAID, SELFPAY ==
[2023-08-11 15:45] LABS: MANUAL DIFF FLAG NO
[2023-08-11 16:26] LABS: Appearance Urine Clear; Color Urine Yellow; Glucose Urine UA Negative (Negative); Leukocyte Esterase Urine Negative (Negative); Nitrite Urine Negative (Negative); PH 5.5 (5.0-9.0); Specific Gravity - Urine 1.015 (1.005-1.025); UMIC TRIGGER UACC YES; Urine Blood Moderate (2+) (Negative); Urine Ketones Negative (Negative); Urine Protein Negative (Neg-Trace)
[2023-08-11 16:32] LABS: Bacteria Urine None Seen (None Seen); Hyaline Casts Urine 0-2 /LPF (0-2); Squamous Epithelial Cell Urine 0-2 /HPF (0-2); WBC Urine 0-5 /HPF (0-5)
[2023-08-11 16:35] LABS: Basophils Absolute Auto 0.1 X10*3/uL (0.0-0.2); Eosinophils Absolute Auto 0.2 X10*3/uL (0.0-0.4); Eosinophils Percent Auto 2.9 % (0-4); Hemoglobin 12.9 g/dl (14.0-18.0); Imm Gran Abs Auto 0.01 X10*3/uL (0.00-0.03); Imm Gran Pct Auto 0.1 % (0.0-0.4); Lymphocytes Absolute Auto 2.6 X10*3/uL (1.2-4.9); Mean Corpuscular HGB Conc 33.1 g/dl (31.0-36.0); Mean Corpuscular Hemoglobin 31.2 pg (27.0-33.0); Mean Corpuscular Volume 94.4 fL (80.0-98.0); Mean Platelet Volume 9.2 fL (9.4-12.4); Monocytes Absolute Auto 0.5 X10*3/uL (0.1-1.2); Monocytes Percent Auto 6.6 % (2-11); Neutrophils Absolute Auto 3.5 x10*3/uL (2.0-8.3); Neutrophils Percent Auto 51.4 % (45-73); Platelet Count 314 X10*3/uL (160-400); Red Blood Count 4.13 X10*6/uL (4.60-5.80); Red Cell Distribution Width 12.5 % (11.0-16.0); White Blood Count 6.9 X10*3/uL (4.8-10.8)
[2023-08-11 17:57] LABS: Alanine Aminotransferase 12 U/L (0-40); Albumin Level 4.4 g/dL (3.5-5.0); Alkaline Phosphatase 90 U/L (39-117); Anion Gap 13 (12-20); Aspartate Amino Transferase 16 U/L (5-37); Bilirubin Total 0.6 mg/dL (0.0-1.0); Blood Urea Nitrogen 13 mg/dL (9-16); Calcium 9.8 mg/dL (8.4-10.2); Carbon Dioxide 29 mmol/L (22-29); Chloride 103 mmol/L (96-108); Estimated Glomerular Filt Rate > 60; Glucose Random 88 mg/dL (60-115); Potassium 4.3 mmol/L (3.3-5.1); Sodium 141 mmol/L (135-145); Total Protein 7.2 g/dL (6.5-8.0)
[2023-08-11 18:15] LABS: TSH reflex Free T4 0.03 uIU/mL (0.32-4.0)
[2023-08-11 18:55] LABS: Free T4 (Free Thyroxine) 1.66 ng/dL (0.71-1.85)
== END 2023-08-11 14:21 | disposition home or self-care (01) ==
LOC: HO.LAB 14:20
PROVIDERS: PCP Internal Medicine; Visit Provider Nurse Practitioner
DX: K59.04 Chronic idiopathic constipation (principal); K21.9 Gastro-esophageal reflux disease without esophagitis; R53.1 Weakness; R11.2 Nausea with vomiting, unspecified; R29.6 Repeated falls; R14.0 Abdominal distension (gaseous); F43.21 Adjustment disorder with depressed mood
CPT/HCPCS: 36415; 80053; 81001; 84439; 84443; 85025; 99212

== ENCOUNTER 2023-08-11 14:20 | Outpatient (AMB) | payer MEDICAID, SELFPAY ==
[2023-08-11 14:23] VITALS: BP 129/82; PULSE 74
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
== END 2023-08-11 15:21 | disposition home or self-care (01) ==
PROVIDERS: PCP Internal Medicine; Visit Provider Nurse Practitioner
DX: R53.1 Weakness (principal); R29.6 Repeated falls; F43.21 Adjustment disorder with depressed mood; K59.04 Chronic idiopathic constipation; R11.2 Nausea with vomiting, unspecified; Z55.0 Illiteracy and low-level literacy; K21.9 Gastro-esophageal reflux disease without esophagitis; F32.A Depression, unspecified
CPT/HCPCS: 99213

== ENCOUNTER 2023-08-24 15:05 | Outpatient (AMB) | payer MEDICAID, SELFPAY ==
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
[2023-08-24 15:10] VITALS: BP 116/56; PULSE 56; BMI 27.5
== END 2023-08-24 15:39 | disposition home or self-care (01) ==
LOC: HO.HGI 15:05
PROVIDERS: PCP Internal Medicine; Visit Provider Nurse Practitioner
DX: F43.21 Adjustment disorder with depressed mood (principal); R11.2 Nausea with vomiting, unspecified; K21.9 Gastro-esophageal reflux disease without esophagitis; Z55.0 Illiteracy and low-level literacy; K59.04 Chronic idiopathic constipation; R42 Dizziness and giddiness
CPT/HCPCS: 99213

== ENCOUNTER → 2023-08-24 15:05 | Outpatient (BNVA) | payer MEDICAID, SELFPAY | PROVIDERS: PCP Internal Medicine; Visit Provider Nurse Practitioner | DX: R53.1 Weakness (principal); K59.04 Chronic idiopathic constipation; K21.9 Gastro-esophageal reflux disease without esophagitis; R11.2 Nausea with vomiting, unspecified; F32.A Depression, unspecified; F43.21 Adjustment disorder with depressed mood; R29.6 Repeated falls; Z63.4 Disappearance and death of family member | CPT/HCPCS: 99212 ==

== ENCOUNTER 2023-09-02 10:02 | Outpatient (AMB) | payer MEDICAID, SELFPAY ==
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
[2023-09-02 10:10] VITALS: BP 132/84; PULSE 56; O2SAT 96; BMI 27.5
== END 2023-09-02 10:47 | disposition home or self-care (01) ==
PROVIDERS: PCP Internal Medicine; Referring Provider Internal Medicine; Visit Provider Nurse Practitioner Family
DX: R29.6 Repeated falls (principal); R53.1 Weakness; M54.16 Radiculopathy, lumbar region; M51.36 Other intervertebral disc degeneration, lumbar region; M47.817 Spondylosis without myelopathy or radiculopathy, lumbosacral region; M54.50 Low back pain, unspecified; G89.29 Other chronic pain; I83.813 Varicose veins of bilateral lower extremities with pain
CPT/HCPCS: 99204

== ENCOUNTER → 2023-09-02 10:02 | Outpatient (BNVA) | payer MEDICAID, SELFPAY | PROVIDERS: PCP Internal Medicine; Referring Provider Internal Medicine; Visit Provider Nurse Practitioner Family | DX: M54.16 Radiculopathy, lumbar region (principal); M51.36 Other intervertebral disc degeneration, lumbar region; M47.817 Spondylosis without myelopathy or radiculopathy, lumbosacral region; M54.50 Low back pain, unspecified; R29.6 Repeated falls; R53.1 Weakness; I83.813 Varicose veins of bilateral lower extremities with pain; G89.29 Other chronic pain | CPT/HCPCS: 99212 ==

== ENCOUNTER 2023-09-20 14:27 | Outpatient (REF) | payer MEDICAID, SELFPAY ==
[2023-09-20 16:32] LABS: Cholesterol 200 mg/dL (<200); HDL Cholesterol 41 mg/dL (>40); LDL Cholesterol Calculated 100 mg/dL (<100); Triglycerides 298 mg/dL (<150)
== END 2023-09-20 14:28 | disposition home or self-care (01) ==
LOC: HO.HHCL 14:27
PROVIDERS: Visit Provider Internal Medicine
DX: E78.2 Mixed hyperlipidemia (principal)
CPT/HCPCS: 36415; 80061

== ENCOUNTER 2023-09-30 13:21 | Outpatient (AMB) | payer MEDICAID, SELFPAY ==
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
[2023-09-30 13:27] VITALS: BP 111/56; PULSE 65; O2SAT 97; BMI 26.1
== END 2023-09-30 13:40 | disposition home or self-care (01) ==
PROVIDERS: PCP Internal Medicine; Visit Provider Nurse Practitioner Family
DX: R29.6 Repeated falls (principal); R53.1 Weakness; M54.16 Radiculopathy, lumbar region; M51.36 Other intervertebral disc degeneration, lumbar region; M47.817 Spondylosis without myelopathy or radiculopathy, lumbosacral region; M54.50 Low back pain, unspecified; G89.29 Other chronic pain
CPT/HCPCS: 99214

== ENCOUNTER → 2023-09-30 13:21 | Outpatient (BNVA) | payer MEDICAID, SELFPAY | PROVIDERS: PCP Internal Medicine; Visit Provider Nurse Practitioner Family | DX: R29.6 Repeated falls (principal); R53.1 Weakness; M54.16 Radiculopathy, lumbar region; M51.36 Other intervertebral disc degeneration, lumbar region; M54.50 Low back pain, unspecified; G89.29 Other chronic pain; M47.817 Spondylosis without myelopathy or radiculopathy, lumbosacral region | CPT/HCPCS: 99212 ==

== ENCOUNTER 2023-10-05 16:23 | Outpatient (AMB) | payer MEDICAID, SELFPAY ==
--- NOTE | 2023-10-05 16:25 | A.OFFVIS_ITS ---
Vital Signs 10/05/23 16:26 Height 5 ft 5 in Weight 162 lb BMI 27.0 BP 113/67 Blood Pressure Location Rt brachial Position Sitting Pulse 79 Intake Visit Reasons: 6 week follow up Intake Note: Patient in office today in 6 weeks follow up of GERD. CC: Patient states that he is doing better but sometimes he continues to have dizziness. 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 Allergies ibuprofen [IBUPROFEN] Allergy (Intermediate, Verified 10/05/23 16:36) KIDNEY ISSUES Penicillins [PENICILLINS] Allergy (Intermediate, Verified 10/05/23 16:36) RASH Motrin Allergy (Unknown, Uncoded 12/01/22 15:01) kidney damage HPI HPI 6 week follow up: Details: Assessment & Plan (1) Grief reaction: Code(s): F43.21 - Adjustment disorder with depressed mood Category: Medical (2) Nausea and vomiting: Code(s): R11.2 - Nausea with vomiting, unspecified Category: Medical (3) GERD (gastroesophageal reflux disease): Code(s): K21.9 - Gastro-esophageal reflux disease without esophagitis Category: Medical (4) Illiterate: Code(s): Z55.0 - Illiteracy and low-level literacy Category: Social Hx (5) Chronic idiopathic constipation: Code(s): K59.04 - Chronic idiopathic constipation Category: Medical (6) Dizziness: Code(s): R42 - Dizziness and giddiness Category: Medical Plan I reviewed the labs with Den and there is no convincing evidence that he has any severe pathology causing his lack of appetite and generalized weakness. I think this is part of his grieving process. Obviously his son's murder has hit him quite hard. Had to make several cord appearances and although they found the person responsible this of course does not bring full closure. He says he is taking the mirtazapine at 15 mg but it is still not helping him enough to sleep. I will increase the dose since it is not causing him any severe side effects. Also give him some meclizine in case the dizziness is related to vertigo. Continues on his omeprazole and Linzess. Although I am trying to help him through this I also encouraged him to continue to work closely with his primary care provider to ensure his best general health. Return office visit in 6 weeks to evaluate his response to the meclizine and the mirtazapine. Medications: New meclizine 50 mg PO BID 60 tabs 6RF R42 - Dizziness and giddiness mirtazapine 45 mg PO BEDTIME 30 tabs 3RF F43.21 - Adjustment disorder with depressed mood Discontinued mirtazapine Discontinued Reason: Doctor's Order 15 mg PO BEDTIME 30 tabs 6RF F32.A - Depression, unspecified Patient Instructions: Den Garcia Please take a total of 45mg mirtazapine at bedtime, either take 2, 15mg pills or 1 45mg pills. I am sending a new medicine called meclizine for dizziness, take this twice a day. Continue all other medications. TODAY'S VISIT He just had an MRI and he had back problems that will require injections. He is sleeping better with the meclizine bid and the mirtazepine at 45mg is helping him to sleep better. 72 micro g daily, omeprazole 40 mg daily, and simethicone 180 mg. He continues also on his methadone therapy. At this time he is satisfied with his GI regimen and with the extra help I have given him as he transitions through this difficult time after his son's murder and his acute grief reaction. Return office visit in 8 weeks ROV 2 mos per pt request. [facility] Medical History History of heroin abuse Chest wall trauma (~2010) Closed fracture of sternum Intercostal neuralgia Dysuria UTI (urinary tract infection) Nephrolithiasis Hemorrhoids Erectile dysfunction Depression Substance abuse Chronic low back pain High cholesterol Surgical History History of thoracic surgery (~2010) Hx of cystoscopy (~2000) Hx of dilation of urethra (~2000) Hx of hemorrhoidectomy (~2007) Hx of colonoscopy Family History Father Emphysema lung Heart disease Mother Diabetes Heart problem HTN (hypertension) Family/Other HTN (hypertension) Heart problem Social History Alcohol intake: current Alcohol intake frequency: does not drink Cigarettes Per Day: 2 Substance Use Type: Marijuana Review of Systems Const Denies fatigue, Denies fever(s), Denies night sweats, Denies poor appetite and Denies weight loss ENT Reports Normal hearing present, Denies dental pain, Denies dysphagia, Reports dizziness, Denies hearing loss, Denies mouth pain, Denies odynophagia, Denies throat swelling, Denies tongue swelling and Reports other (Dentition adequate) Card Reports no additional complaints Resp Reports no additional complaints GI Details: Denies abdominal pain, Denies melena, Reports bloating, Denies hematochezia, Reports constipation, Denies GI cramping, Denies dysphagia, Denies excessive flatus, Denies early satiety, Reports heartburn, Denies diarrhea, Denies nausea, Denies odynophagia, Denies vomiting and Denies hematemesis Musc Reports back pain, Reports myalgias, Reports limited range of motion, Reports muscle weakness and Reports radiating pain into limb Skin/Breast Denies pruritus, Denies lesions, Denies rash and Denies jaundice Neuro Reports Normal hearing present, Denies Abnormal speech present, Reports dizziness and Reports paresthesias Psych Reports anxiety, Reports depression, Denies homicidal ideation and Denies suicidal ideation Endo Denies fatigue Aller/Immun Denies throat swelling and Denies tongue swelling Physical Exam Vital Signs: Last Vital Signs Pulse 79 10/05/23 16:26 BP 113/67 10/05/23 16:26 BMI result Body Mass Index 27.0 Const General: cooperative, no acute distress, well developed and well groomed Nutritional Appearance: well nourished and overweight Orientation/consciousness: oriented to person, oriented to place and oriented to time Limitations: No language barrier, ambulation with cane and other limitations HEENT Head: Yes normocephalic and Yes atraumatic Eyes General: appearance normal, both eyes and all related structures Pupils: Equal, round and reactive pupils present Neck Neck: Yes normal visual inspection and Yes no lymphadenopathy Thyroid: Thyroid normal Resp Effort & Inspection: normal respiratory effort and able to speak in complete sentences Auscultation: clear to auscultation bilaterally Cardio Rate: regular rate Rhythm: regular rhythm Heart sounds: Normal, physiologic split S2 sound present Peripheral pulses: radial pulses present and posterior tibial pulses present GI Inspection: No distended and No Abdominal panniculus present Palpation (GI): Soft to palpation, nontender, no guarding, not rigid and No hepatosplenomegaly present Percussion: Yes normal to percussion Auscultation: normal bowel sounds Rectal Exam - Male: Yes deferred Skin General skin exam: no rashes or lesions noted, turgor normal, skin not dry, no jaundice, No spider nevi and no striae Rashes: no rashes Nails: normal Neuro General: oriented to person, oriented to place and oriented to time Cranial nerves: Yes Equal, round and reactive pupils present and Yes Normal hearing present Speech: No Abnormal speech present Extrem General: Yes normal to inspection, No clubbing, No cyanosis and No edema Psych Appearance: grossly normal and well kempt Mental Status: mental status grossly normal Speech and movement: Normal speech and movement present Affect: normal affect Attitude: cooperative Thought process: Normal thought process present and not confabulating Thought content: Normal thought content present Insight: Limited insight present (Psych) Judgement: Limited judgement present (Psych) Assessment & Plan Assessment & Plan (1) Nausea and vomiting: Code(s): R11.2 - Nausea with vomiting, unspecified Category: Medical (2) GERD (gastroesophageal reflux disease): Code(s): K21.9 - Gastro-esophageal reflux disease without esophagitis Category: Medical (3) Chronic idiopathic constipation: Code(s): K59.04 - Chronic idiopathic constipation Category: Medical (4) Abnormal loss of weight: Code(s): R63.4 - Abnormal weight loss Category: Medical (5) Dizziness: Code(s): R42 - Dizziness and giddiness Category: Medical (6) Grief reaction: Code(s): F43.21 - Adjustment disorder with depressed mood Category: Medical (7) Frequent falls: Code(s): R29.6 - Repeated falls Category: Medical (8) Insomnia: Code(s): G47.00 - Insomnia, unspecified Category: Medical Plan He just had an MRI and he had back problems that will require injections. He is sleeping better with the meclizine bid and the mirtazepine at 45mg is helping him to sleep better. 72 micro g daily, omeprazole 40 mg daily, and simethicone 180 mg. He continues also on his methadone therapy. At this time he is satisfied with his GI regimen and with the extra help I have given him as he transitions through this difficult time after his son's murder and his acute grief reaction. Return office visit in 8 weeks Coding Level of Care Code Est Pt Level 3 (73374) Diagnoses Nausea and vomiting R11.2 GERD (gastroesophageal reflux disease) K21.9 Chronic idiopathic constipation K59.04 Abnormal loss of weight R63.4 Dizziness R42 Grief reaction F43.21 Frequent falls R29.6 Insomnia G47.00
[2023-10-05 16:26] VITALS: BP 113/67; PULSE 79; BMI 27.0
== END 2023-10-05 16:58 | disposition home or self-care (01) ==
PROVIDERS: PCP Internal Medicine; Visit Provider Nurse Practitioner
DX: R11.2 Nausea with vomiting, unspecified (principal); K21.9 Gastro-esophageal reflux disease without esophagitis; K59.04 Chronic idiopathic constipation; R63.4 Abnormal weight loss; R42 Dizziness and giddiness; F43.21 Adjustment disorder with depressed mood; R29.6 Repeated falls; G47.00 Insomnia, unspecified
CPT/HCPCS: 99213

== ENCOUNTER → 2023-10-05 16:23 | Outpatient (BNVA) | payer MEDICAID, SELFPAY | PROVIDERS: PCP Internal Medicine; Visit Provider Nurse Practitioner | DX: K21.9 Gastro-esophageal reflux disease without esophagitis (principal); K59.04 Chronic idiopathic constipation; R42 Dizziness and giddiness; R11.2 Nausea with vomiting, unspecified; R63.4 Abnormal weight loss; R29.6 Repeated falls; G47.00 Insomnia, unspecified; F43.21 Adjustment disorder with depressed mood | CPT/HCPCS: 99212 ==

== ENCOUNTER 2023-10-07 07:22 | Outpatient (REF) | payer MEDICAID, SELFPAY | END 2023-10-07 07:23 | disposition home or self-care (01) | LOC: CF 07:22 | PROVIDERS: Visit Provider Internal Medicine | DX: M54.16 Radiculopathy, lumbar region (principal) | CPT/HCPCS: 64483; J1100; Q9967 ==

== ENCOUNTER 2023-10-07 14:27 | Outpatient (AMB) | payer MEDICAID, SELFPAY ==
[2023-10-07 14:29] VITALS: BP 112/55; PULSE 63; RESP 19; O2SAT 98
--- NOTE | 2023-10-07 14:59 | MHC.OFFVIS ---
Vital Signs 10/07/23 14:29 10/07/23 15:00 BP 112/55 L 114/58 L Blood Pressure Location Rt brachial Rt brachial Position Sitting Sitting Respiration 19 Pulse 63 62 Pulse Source Pulse Oximeter Pulse Oximeter Pulse Oximetry (%) 98 93 Oxygen Delivery Method Room Air Room Air Comment Pre-op Post-op Intake Visit Reasons: Matthew L4-L5 TFESI Allergies ibuprofen [IBUPROFEN] Allergy (Intermediate, Verified 10/05/23 16:36) KIDNEY ISSUES Penicillins [PENICILLINS] Allergy (Intermediate, Verified 10/05/23 16:36) RASH Motrin Allergy (Unknown, Uncoded 12/01/22 15:01) kidney damage HPI HPI Matthew L4-L5 TFESI: Details: Patient presents for scheduled procedure. Denies any recent cough, cold, infection, fever or other significant changes in medical history since last office visit. [facility] Medical History History of heroin abuse Chest wall trauma (~2010) Closed fracture of sternum Intercostal neuralgia Dysuria UTI (urinary tract infection) Nephrolithiasis Hemorrhoids Erectile dysfunction Depression Substance abuse Chronic low back pain High cholesterol Surgical History History of thoracic surgery (~2010) Hx of cystoscopy (~2000) Hx of dilation of urethra (~2000) Hx of hemorrhoidectomy (~2007) Hx of colonoscopy Family History Father Emphysema lung Heart disease Mother Diabetes Heart problem HTN (hypertension) Family/Other HTN (hypertension) Heart problem Social History Alcohol intake: current Alcohol intake frequency: does not drink Cigarettes Per Day: 2 Substance Use Type: Marijuana Physical Exam Vital Signs: Last Vital Signs Pulse 62 10/07/23 15:00 Resp 19 10/07/23 14:29 BP 114/58 L 10/07/23 15:00 Pulse Ox 93 10/07/23 15:00 Oxygen Delivery Method Room Air 10/07/23 15:00 Office Procedures Details: Transforaminal epidural steroid injection, Bilateral L4 After obtaining written consent, pre-procedure blood pressure and heart rate were stable and recorded in the nursing record. The patient was placed in the prone position on the fluoroscopy table. The lumbosacral area was prepped with chloraprep, allowed to dry and draped in sterile fashion. Using fluoroscopy, the skin overlying our target was anesthetized with 0.5% lidocaine. A 22 gauge 3.5 inch spinal needle was advanced to the safe triangle in the upper pole of the right L4 foramen. No paresthesias were elicited with needle placement and aspiration was negative for blood and CSF. Correct needle position was confirmed with approximately 1 ml contrast dye (Omnipaque 180 mg/ml) injected under real-time fluoroscopy. No evidence of vascular or intrathecal uptake was seen and there was both epidural and peripheral spread of the contrast agent. 7.5 mg dexamethasone plus 1 ml containing 0.5% lidocaine was slowly injected. The needle was flushed and removed. The same process was then repeated on the other side. The skin was cleansed and a sterile bandages were applied. The patient tolerated the procedure well and no complications were encountered. Following the procedure the patient's vital signs were stable. The patient was discharged home in good condition with post-procedural instructions. Time Out: Immediately prior to the procedure, the following was verbally confirmed that there is a signed consent form and that the correct patient, planned procedure, site and side are consistent with documentation and that necessary equipment and/or blood products are available prior to the start of the case. Complications: none EBL: <5 cc 95271 - Lumbar/Sacral (bilateral) Procedure code (CPT) selection complete Assessment & Plan Assessment & Plan (1) Bilateral lumbar radiculopathy: Code(s): M54.16 - Radiculopathy, lumbar region Category: Medical Plan Patient is status post bilateral L4-5 TFESI. Patient tolerated procedure well and was discharged home in stable condition with discharge instructions. All questions were answered. We will follow-up via telephone or in clinic to assess response to therapy. A follow-up appointment was made during today's visit. Orders: Orders FL guidance in treatment room Today M54.16 - Radiculopathy, lumbar region Coding Level of Care Code Procedure Only Diagnoses Bilateral lumbar radiculopathy M54.16 CPT Codes Transforaminal Epidural Steroid Inj - TESI 3: 18136 - Lumbar/Sacral ([id number])
[2023-10-07 15:00] VITALS: BP 114/58; PULSE 62; O2SAT 93
== END 2023-10-07 14:57 | disposition home or self-care (01) ==
LOC: HO.PMCPRC 14:27
PROVIDERS: PCP Internal Medicine; Visit Provider Internal Medicine
DX: M54.16 Radiculopathy, lumbar region (principal)
CPT/HCPCS: 64483

== ENCOUNTER 2023-11-01 13:56 | Outpatient (REF) | payer MEDICAID, SELFPAY ==
--- NOTE | ~2023-11-01 | XR_ITS ---
EXAMINATION: XR SHOULDER, LEFT CLINICAL INFORMATION: Left anterior shoulder pain after a fall. COMPARISON: 11/06/2019. TECHNIQUE: AP external rotation, Grashey, scapular Y, and axillary views of the left shoulder. FINDINGS: Bisfakwx-qu-[id number] acromioclavicular and minimal glenohumeral osteoarthritis. No fracture or malalignment. Fixation plates within multiple ribs. Old healed rib fractures. Soft tissues are unremarkable. XR/XR shoulder LT min 2V IMPRESSION: 1. No acute fracture or malalignment. 2. Wfpdobul-tb-sydmcd acromioclavicular and minimal glenohumeral osteoarthritis. Electronically signed by: Iglesia Lee MD 11/07/2023 09:03 PM EDT
--- NOTE | ~2023-11-01 | XR_ITS ---
EXAMINATION: XR HAND, LEFT CLINICAL INFORMATION: Left hand pain, injury with wire. COMPARISON: None available. TECHNIQUE: PA, lateral, and oblique views of the left hand. FINDINGS: No fracture or malalignment. 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 Joint spaces are otherwise relatively well-preserved. Normal bone mineralization. No erosions. Soft tissues are unremarkable. No soft tissue calcification. No radiodense foreign bodies. XR/XR hand LT min 3V IMPRESSION: 1. No acute fracture or malalignment. 2. 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 Electronically signed by: Iglesia Lee MD 11/07/2023 09:05 PM EDT
== END 2023-11-01 13:57 | disposition home or self-care (01) ==
LOC: HO.HHCX 13:56
PROVIDERS: Visit Provider Student in an Organized Health Care Education/Training Program
DX: M79.642 Pain in left hand (principal); M25.512 Pain in left shoulder
CPT/HCPCS: 73030; 73130

== ENCOUNTER 2023-11-04 12:40 | Outpatient (AMB) | payer MEDICAID, SELFPAY ==
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
[2023-11-04 12:58] VITALS: BP 103/58; PULSE 60; O2SAT 96; BMI 26.0
== END 2023-11-04 13:15 | disposition home or self-care (01) ==
PROVIDERS: PCP Internal Medicine; Visit Provider Nurse Practitioner Family
DX: M54.16 Radiculopathy, lumbar region (principal); M51.36 Other intervertebral disc degeneration, lumbar region; M47.817 Spondylosis without myelopathy or radiculopathy, lumbosacral region; M54.50 Low back pain, unspecified; G89.29 Other chronic pain; M25.512 Pain in left shoulder; R29.6 Repeated falls
CPT/HCPCS: 99213

== ENCOUNTER → 2023-11-04 12:40 | Outpatient (BNVA) | payer MEDICAID, SELFPAY | PROVIDERS: PCP Internal Medicine; Visit Provider Nurse Practitioner Family | DX: M54.50 Low back pain, unspecified (principal); G89.29 Other chronic pain; M25.512 Pain in left shoulder; M54.16 Radiculopathy, lumbar region; M51.36 Other intervertebral disc degeneration, lumbar region; M47.817 Spondylosis without myelopathy or radiculopathy, lumbosacral region; R29.6 Repeated falls | CPT/HCPCS: 99212 ==

== ENCOUNTER 2024-01-04 16:21 | Outpatient (AMB) | payer MEDICAID, SELFPAY ==
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
[2024-01-04 16:32] VITALS: BP 120/61; PULSE 58; BMI 26.4
== END 2024-01-05 15:28 | disposition home or self-care (01) ==
PROVIDERS: PCP Internal Medicine; Visit Provider Nurse Practitioner
DX: R11.2 Nausea with vomiting, unspecified (principal); Z55.0 Illiteracy and low-level literacy; K59.04 Chronic idiopathic constipation; K21.9 Gastro-esophageal reflux disease without esophagitis
CPT/HCPCS: 99213

== ENCOUNTER → 2024-01-04 16:21 | Outpatient (BNVA) | payer MEDICAID, SELFPAY | PROVIDERS: PCP Internal Medicine; Visit Provider Nurse Practitioner | DX: K59.04 Chronic idiopathic constipation (principal); K21.9 Gastro-esophageal reflux disease without esophagitis; R11.2 Nausea with vomiting, unspecified; Z55.0 Illiteracy and low-level literacy | CPT/HCPCS: 99212 ==

== ENCOUNTER 2024-06-22 14:50 | Outpatient (REF) | payer MEDICAID, SELFPAY ==
--- NOTE | ~2024-06-22 | XR_ITS ---
EXAMINATION: XR SHOULDER, RIGHT CLINICAL INFORMATION: Severe R shoulder pain and decreased ROM s/p pull injury COMPARISON: None available. TECHNIQUE: AP external rotation, Grashey, scapular Y, and axillary views of the right shoulder. FINDINGS: Normal bone mineralization. No fracture, dislocation, or suspicious bone lesion. Normal alignment. The glenohumeral joint is normal. The AC joint is normal. There is a type I acromion. No undersurface spurring. The subacromial space is preserved. Remainder of the soft tissue and bony structures appear normal. XR/XR shoulder RT min 2V IMPRESSION: No acute bony abnormality or malalignment. Electronically signed by: Iglesia Cantor MD 06/22/2024 03:41 PM EDT
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
--- OUTSIDE RECORDS SUMMARY | 2024-06-22 16:50 | XMS_ITS | Clinical Summary ---
Author Organization [facility] Address [address] [place] [address] Phone Care Team Providers Care Insurance Broker Name Role Phone Abel Looney MD Primary Care Provi rubén Allergies Active Allergy Reactions Criticality Noted Date Comments Ibuprofen Itching 10/05/2018 Penicillin G Itching 10/05/2018 Medications ketoconazole (NIZORAL) 2 % cream Apply cream to the affected areas of the bottom and top of feet twice daily 4 Active hydrocortisone 2.5 % cream Apply topically 1 (one) time each day. 60 g 1 5 03/22/19 26 Active Encounters Date Type Department Care Team Description 05/31/2024 1:30 PM EDT Ancillary Procedure [facility] 101 300 [facility] 101 [place] [phone] PVD (peripheral vascular disease) ([facility] V24) 05/01/2024 Telephone Orthopedic Surgery [facility] [address] [phone] Jesse Wei DPM 04/26/2024 Telephone Orthopedic Surgery [facility] [address] [phone] Jesse Wei DPM Foot Pain (Great toe pain); Referral (Vascular) from Last 3 Months Immunizations Name Administration Dates Next Due Pfizer SARS-CoV-2 COVID-19, mRNA, LNP-S, preservative free 10/06/2021,03/12/2021,07/15/2020,2020 Social History Tobacco Use Types Packs/Day Years Used Date Smoking Tobacco: Never Assessed Sex and Gender Information Value Date Recorded Sex Assigned at Not on file Legal Sex Male 4:33 AM EST Gender Identity Not on file Sexual Orientation Not on file Last Filed Vital Signs Vital Sign Reading Time Taken Comments Blood Pressure - - Pulse - - Temperature - - Respiratory Rate - - Oxygen Saturation - - Inhaled Oxygen Concentration - - Weight 76.2 kg (168 lb) 03/22/2024 2:13 PM EST Height 167.6 cm (5' 6 ) 08/30/2023 2:30 PM EDT Body Mass Index 27.12 08/30/2023 2:30 PM EDT Plan of Treatment Health Maintenance Due Date Last Done Comments Hepatitis A Vaccines (1 of 2 - Risk 2-dose series) 08/22/1979 Pneumococcal Vaccine: 50+ Years (2 of 2 - PCV) 01/02/1997 01/03/1996 Pneumococcal Vaccine: Pediatrics (0 to 5 Years) and At-Risk Patients (6 to 64 Years) (2 of 2 - PCV) 01/02/1997 01/03/1996 Zoster Vaccines (1 of 2) 2010 RSV Immunization Adult Patients (1 - Risk 60-74 years 1-dose series) 2020 Colorectal Cancer Screening: Colonoscopy 01/25/2022 HIV Screening 01/25/2022 Hepatitis C Screening 01/25/2022 Social Influencers of Health Screening 01/25/2022 COVID-19 Vaccine ( season) 2023 12/25/2022, 10/06/2021, 03/12/2021, Additional history exists Hypertension/CHF/CAD Annual BMP Blood Test 03/22/2024 DTaP,Tdap,and Td Vaccines (3 - Td or Tdap) 06/05/2024 06/05/2014, 10/31/1999 Depression Screening 08/18/2024 08/19/2023 Influenza Vaccine (Season Ended) 2024 12/25/2022, 12/02/2021, 01/28/2021, Additional history exists Cholesterol Screening (Lipid Panel) 09/19/2028 09/20/2023 HIB Vaccines Aged Out No longer eligi [...] on patient's age to complete this topic MMR Vaccines Aged Out No longer eligi ble based on patient's age to complete this topic Meningococcal ACWY Vaccine Aged Out N o longer eligible based on patient's age to complete this topic Meningococcal B Vaccine Aged Out No l onger eligible based on patient's age to complete this topic RSV Immunization Patients Under 20 months Aged Out No longer eligible based on patient's age to complete this topic Varicella Vaccines Aged Out No longer eligible based on patient's age to complete this topic Procedures Procedure Name Priority Date/Time Associated Diagnosis Comments VAS US DUPLEX LOWER EXT ARTERIES BILAT WITH RADHA Routine 05/31/2024 2:18 PM EDT PVD (peripheral vascular disease) ([facility] V24) from Last 3 Months Results * Vascular US duplex lower extremity arteries bilateral with RADHA (05/31/2024 2:18 PM EDT) Left Dist External Iliac PSV 132 cm/s CV VAS LAB Left Prox External Iliac PSV 125 cm/s CV VAS LAB Left AT dist sys PSV 89 cm/s CV VAS LAB Left AT mid sys PSV 74 cm/s CV VAS LAB Left AT prox sys PSV 68 cm/s CV VAS LAB Left TRENCH DIGGER HELPER prox sys PSV 133 cm/s CV VAS LAB Left mid peroneal sys PSV 35 cm/s CV VAS LAB Left popliteal dist sys PSV 59 cm/s CV VAS LAB Left popliteal prox sys PSV 64 cm/s CV VAS LAB Left PT dist sys PSV 61 cm/s CV VAS LAB Left PT mid sys PSV 71 cm/s CV VAS LAB Left PT prox sys PSV 64 cm/s CV VAS LAB Left profunda sys PSV 116 cm/s CV VAS LAB Left super femoral dist sys PSV 87 cm/s CV VAS LAB Left super femoral mid sys PSV 112 cm/s CV VAS LAB Left super femoral prox sys PSV 113 cm/s CV VAS LAB Right Dist External Iliac PSV 129 cm/s CV VAS LAB Right Prox External Iliac PSV 137 cm/s CV VAS LAB Right AT dist sys PSV 59 cm/s CV VAS LAB Right AT mid sys PSV 42 cm/s CV VAS LAB Right AT prox sys PSV 61 cm/s CV VAS LAB Right TRENCH DIGGER HELPER prox sys PSV 122 cm/s CV VAS LAB Right mid peroneal sys PSV 85 cm/s CV VAS LAB Right popliteal dist sys PSV 69 cm/s CV VAS LAB Right popliteal prox sys PSV 100 cm/s CV VAS LAB Right PT dist sys PSV 40 cm/s CV VAS LAB Right PT mid sys PSV 51 cm/s CV VAS LAB Right PT prox sys PSV 47 cm/s CV VAS LAB Right super femoral dist sys PSV 85 cm/s CV VAS LAB Right super femoral mid sys PSV 106 cm/s CV VAS LAB Right super femoral prox sys PSV 127 cm/s CV VAS LAB Right arm BP 128 mmHg CV VAS LAB Left arm BP 119 mmHg CV VAS LAB Right posterior tibial 128 mmHg CV VAS LAB Right Dorsalis Pedis 130 mmHg CV VAS LAB Right RADHA 1.02 CV VAS LAB Left posterior tibial 130 mmHg CV VAS LAB Left Dorsalis Pedis 128 mmHg CV VAS LAB Left RADHA 1.02 CV VAS LAB Anatomical Region Laterality Modality Vascular, Abdomen Ultrasound Narrative 06/12/2024 10:12 AM EDT Right leg: Normal ankle-brachial index (1.02). No significant stenosis of the right lower extremity arterial system. Left leg: Normal ankle-brachial index (1.02). No significant stenosis in the left lower extremity arterial system. Right RADHA Right BP= 128/57 Left RADHA Left BP= 119/62 Right Lower Arterial Duplex The distal external iliac artery has triphasic flow. The common femoral artery has triphasic flow. The profunda femoris artery has triphasic flow. The superficial femoral artery has triphasic flow. The popliteal artery has triphasic flow. The anterior tibial artery has triphasic flow. The posterior tibial artery has triphasic flow. The mid peroneal artery has triphasic flow. Left Lower Arterial Duplex The distal external iliac artery has triphasic flow. The common femoral artery has triphasic flow. The profunda femoris artery has triphasic flow. The superficial femoral artery has triphasic flow. The popliteal artery has triphasic flow. The anterior tibial artery has triphasic flow. The posterior tibial artery has triphasic flow. The mid peroneal artery has triphasic flow. Adjunct Faculty Instructor Details A charles scale, color and doppler analysis ultrasound was performed. During the study longitudinal views were obtained. Pulsed wave doppler was performed. us Jesse Wei DPM CV VASCULAR PROCEDURES Rhea bingham Result from Last 3 Months Insurance MEDICAID - [place] Care Teams Insurance Broker Relationship Specialty Start Date End Date Abel Looney MD [address] [place] [address] [place] [phone] PCP - General Internal Medicine 01/11/18
--- OUTSIDE RECORDS SUMMARY | 2024-06-22 16:50 | XMS_ITS | Encounter Summary ---
Author Organization [employer] Address [address] [facility] 7t [place] [address] Care Team Providers Care Audio Visual Aide Name Role Phone Abel Klein MD Primary Care Provide r Encounter Details Date Type Department Care Team (Late st Contact Info) Description 03/10/2022 Orders Only [facility] [address] [place], [place] [phone] Susy Ellington LPN Social History Tobacco Use Types Packs/Day Years Used Date Smoking Tobacco: Never Assessed Sex and Gender Information Value Date Recorded Sex Assigned at Male 12/22/2021 10:14 AM EDT Legal Sex Male 10:14 AM EDT Gender Identity Male 12/22/2021 10:14 AM EDT Sexual Orientation Choose not to disclose 2021 10:14 AM EDT documented as of this encounter Plan of Treatment Upcoming Encounters Date Type Department Care Team (Late st Contact Info) Description 07/20/2024 9:15 AM EDT Office Visit [facility] [address] [place] [address] Abel Klein MD [address] [place] [address] documented as of this encounter Visit Diagnoses Not on filedocumented in this encounter Care Teams Audio Visual Aide Relationship Specialty Start Date End Date Abel Klein MD [address] [place] [address] PCP - General Internal Medicine 10/12/13 documented as of this encounter
--- OUTSIDE RECORDS SUMMARY | 2024-06-22 16:50 | XMS_ITS | Encounter Summary ---
Author Organization [employer] Address [address] [place] [address] Care Team Providers Care Group Home Paraprofessional Name Role Phone Abel Klein MD Primary Care Provide r Encounter Details Date Type Department Care Team (Late st Contact Info) Description 06/22/2024 Telephone [facility] [address] [place], [place] [phone] Miya Lobato DO [address] [place], [place] [phone] Social History Tobacco Use Types Packs/Day Years Used Date Smoking Tobacco: Every Day Cigarettes Passive Smoke Exposure: Current Smokeless Tobacco: Current Comments:Smoked x 45 years, did stop once [...] the past 12 months, has t he [place], gas, oil or water [employer] threatened to shut off services in your home? No 12/10/2022 Depression Answer Date Recorded Patient Health Questionnaire-2 Score 6 08/19/2023 Sex and Gender Information Value Date Recorded Sex Assigned at Male 12/22/2021 10:14 AM EDT Legal Sex Male 10:14 AM EDT Gender Identity Male 12/22/2021 10:14 AM EDT Sexual Orientation Choose not to disclose 2021 10:14 AM EDT documented as of this encounter Miscellaneous Notes * Telephone Encounter - Miya Lobato DO - 06/22/2024 4:36 PM EDT Please advise pt his shoulder xrays showed no fracture or dislocation. Will refer pt to ortho and he can use the sling in the interim. Thank you. documented in this encounter Plan of Treatment Upcoming Encounters Date Type Department Care Team (Late st Contact Info) Description 07/20/2024 9:15 AM EDT Office Visit [facility] [address] [place] [address] Abel Klein MD [address] [place] [address] documented as of this encounter Visit Diagnoses Not on filedocumented in this encounter Additional Health Concerns Assessment Noted Time PHQ-9 Depression Total Score: 27 024 10:53 AM EDT documented as of this encounter Care Teams Group Home Paraprofessional Relationship Specialty Start Date End Date Abel Klein MD [address] [place] [address] PCP - General Internal Medicine 10/12/13 documented as of this encounter
--- OUTSIDE RECORDS SUMMARY | 2024-06-22 16:50 | XMS_ITS | Encounter Summary ---
Author Organization [employer] Address [address] [facility] 7t [place] [address] Care Team Providers Care Call Or Contact Centre Team Leader Name Role Phone Abel Klein MD Primary Care Provide r Reason for Visit * Reason Onset Date Comments call back requested 11/09/2022 Encounter Details Date Type Department Care Team (Late st Contact Info) Description 11/09/2022 Telephone [facility] MED[facility] [address] [place] [phone] Abel Klein MD [address] [place] [phone] call back requested Social History Tobacco Use Types Packs/Day Years Used Date Smoking Tobacco: Every Day Cigarettes Passive Smoke Exposure: Current Smokeless Tobacco: Current Comments:Smoked x 45 years, did stop once for 11 years Alcohol Use Standard Drinks/Week Comments Never 0 (1 standard drink = 0.6 oz pur e alcohol) Depression Answer Date Recorded Patient Health Questionnaire-9 Score 12 06/23/2022 Depression Answer Date Recorded Patient Health Questionnaire-2 Score 2 06/23/2022 Sex and Gender Information Value Date Recorded Sex Assigned at Male 12/22/2021 10:14 AM EDT Legal Sex Male 10:14 AM EDT Gender Identity Male 12/22/2021 10:14 AM EDT Sexual Orientation Choose not to disclose 2021 10:14 AM EDT documented as of this encounter Plan of Treatment Upcoming Encounters Date Type Department Care Team (Late Contact Info) Description 07/20/2024 9:15 AM EDT Office Visit [facility] MED[facility] [address] [place] [phone] Abel Klein MD [address] [place] [address] documented as of this encounter Visit Diagnoses Not on filedocumented in this encounter Additional Health Concerns Assessment Noted Time PHQ-9 Depression Total Score: 12 023 2:47 PM EDT documented as of this encounter Care Teams Call Or Contact Centre Team Leader Relationship Specialty Start Date End Date Abel Klein MD [address] [place] [address] PCP - General Internal Medicine 10/12/13 documented as of this encounter
--- OUTSIDE RECORDS SUMMARY | 2024-06-22 16:50 | XMS_ITS | Encounter Summary ---
Author Organization [employer] Address [address] [facility] [address] [facility] [address] 7[address] [place] [address] Care Team Providers Care Green Ware Caster Name Role Phone Abel Klein MD Primary Care Provide r Encounter Details Date Type Department Care Team (Late st Contact Info) Description 04/02/2022 Orders Only [facility] [address] [place], [place] [phone] Miya Stovall LPN Social History Tobacco Use Types Packs/Day [...] Description 07/20/2024 9:15 AM EDT Office Visit [facility] [address] [place] [address] Abel Klein MD [address] [place] [address] documented as of this encounter Visit Diagnoses Not on filedocumented in this encounter Care Teams Green Ware Caster Relationship Specialty Start Date End Date Abel Klein MD [address] [place] [address] PCP - General Internal Medicine 10/12/13 documented as of this encounter
--- OUTSIDE RECORDS SUMMARY | 2024-06-22 16:50 | XMS_ITS | Encounter Summary ---
Author Organization [employer] Address [address] [facility] [address] 7[address] [place] [address] Care Team Providers Care Sack Sorter Name Role Phone Abel Klein MD Primary Care Provide r Reason for Visit * Reason Comments Shoulder Pain Encounter Details Date Type Department Care Team ([facility] st Contact Info) Description 06/22/2024 2:40 PM EDT Office Visit [facility] [address] [place] [address] Acute pain of right shoulder (Primary Dx) Social History Tobacco Use Types Packs/Day Years [...] the past 12 months, has t he [employer], [employer], oil or water [employer] threatened to shut off services in your home? No 12/10/2022 Depression Answer Date Recorded Patient Health Questionnaire-2 Score 6 08/19/2023 Sex and Gender Information Value Date Recorded Sex Assigned at Male 12/22/2021 10:14 AM EDT Legal Sex Male 10:14 AM EDT Gender Identity Male 12/22/2021 10:14 AM EDT Sexual Orientation Choose not to disclose 2021 10:14 AM EDT documented as of this encounter Last Filed Vital Signs Vital Sign Reading Time Taken Comments Blood Pressure 124/70 06/22/2024 2:19 PM EDT Pulse 63 06/22/2024 2:19 PM EDT Temperature 36.8 ??C (98.3 ??F) 06/22/2024 2:19 PM ED T Respiratory Rate 16 06/22/2024 2:19 PM EDT Oxygen Saturation - - Inhaled Oxygen Concentration - - Weight 78.7 kg (173 lb 6.4 oz) 06/22/2024 2:19 P M EDT Height 167.6 cm (5' 6 ) 06/22/2024 2:19 PM EDT Body Mass Index 27.99 06/22/2024 2:19 PM EDT documented in this encounter Plan of Treatment Upcoming Encounters Date Type Department Care Team (Late st Contact Info) Description 07/20/2024 9:15 AM EDT Office Visit [facility] 230 [place], [place] [phone] Abel Klein MD [address] [place] [address] documented as of this encounter Procedures Procedure Name Priority Date/Time Associated Diagnosis Comments XR SHOULDER 2+ VIEWS RIGHT STAT 06/22/2024 2:50 PM EDT Acute pain of right shoulder documented in this encounter Results * XR Shoulder 2+ Views Right (06/22/2024 2:50 PM EDT) Anatomical Region Laterality Modality Upper Extremities, Shoulder Right Radi ographic Imaging 06/22/2024 2:50 PM EDT Narrative 06/22/2024 3:44 PM EDT ?[facility] ?[address] ?[place] [address] ?XRay Report ? Signed ? Patient: Den Garcia ?MR#: [id number] ? : 1960 ?Acct:[id number] ? Age/Sex: 63 / M ?ADM Date: 06/22/24 ? Loc: HO.HHCX ? Attending Dr: Miya Lobato DO ? Ordering Physician: Miya Lobato DO ?? Date of Service: 06/22/24 ?? Procedure(s): XR shoulder RT min 2V ?? Accession Number(s): [id number] ? cc: Miya Lobato DO ? EXAMINATION: ?? XR SHOULDER, RIGHT [...] abnormality or malalignment. ? Electronically signed by: ??Igleisa Cantor MD ??06/22/2024 03:41 PM EDT RP ? Dictated By: ?Iglesia Cantor MD ? Signed By: ?<Electronically signed by Iglesia Cantor MD in OV> ?06/22/24 1541 ? DD/ 1450 ? TD/TT: 06/22/24 1532 ? Pca: ? Procedure Note Alea, Image - 06/22/2024 [facility] [address] [place] [address] XRay Report Signed Patient: Dani Garcia#: [id number] : 1960cct:[id number] Age/Sex: 63 / MADM Date: 06/22/24 Loc: HO.HHCX Attending Dr: Miya Lobato DO Ordering Physician: Miya Lobato DO Date of Service: 06/22/24 Procedure(s): XR shoulder RT min 2V Accession Number(s): [id number] cc: Miya Lobato DO EXAMINATION: XR SHOULDER, [...] Iglesia Cantor MD 06/22/2024 03:41 PM EDT Dictated By: Iglesia Cantor MD Signed By: <Electronically signed by Iglesia Cantor MD in OV> 06/22/24 1541 DD/ 1450 TD/TT: 06/22/24 1532 Pca: Miya Lobato DO IMG XR PROCEDURES Final Resu lt documented in this encounter Visit Diagnoses Diagnosis Acute pain of right shoulder- Primary documented in this encounter Additional Health Concerns Assessment Noted Time PHQ-9 Depression Total Score: 27 024 10:53 AM EDT documented as of this encounter Care Teams Sack Sorter Relationship Specialty Start Date End Date Abel Klein MD [address] [place] [address] PCP - General Internal Medicine 10/12/13 documented as of this encounter
--- OUTSIDE RECORDS SUMMARY | 2024-06-22 16:50 | XMS_ITS | Encounter Summary ---
Author Organization [employer] Address [address] [facility] [address] [place] [address] Care Team Providers Care Grain Blender Name Role Phone Abel Klein MD Primary Care Provide r Encounter Details Date Type Department Care Team (Late st Contact Info) Description 05/08/2022 Orders Only [facility] [address] [place], [place] [phone] Miya Stovall LPN Social History Tobacco Use [...] Description 07/20/2024 9:15 AM EDT Office Visit [facility] [address] [place] [address] Abel Klein MD [address] [place] [address] documented as of this encounter Visit Diagnoses Not on filedocumented in this encounter Care Teams Grain Blender Relationship Specialty Start Date End Date Abel Klein MD [address] [place] [address] PCP - General Internal Medicine 10/12/13 documented as of this encounter
== END 2024-06-22 14:51 | disposition home or self-care (01) ==
LOC: HO.HHCX 14:50
PROVIDERS: Visit Provider Family Medicine
DX: M25.511 Pain in right shoulder (principal)
CPT/HCPCS: 73030

== ENCOUNTER → 2024-06-22 14:50 | Outpatient (BNV) | payer MEDICAID, SELFPAY | PROVIDERS: Visit Provider Radiology Diagnostic Radiology | DX: M25.511 Pain in right shoulder (principal) | CPT/HCPCS: 73030 ==

== ENCOUNTER → 2024-07-22 11:19 | Outpatient (BNV) | payer MEDICAID, SELFPAY | PROVIDERS: PCP Internal Medicine; Visit Provider Radiology Diagnostic Radiology | DX: S46.011A Strain of muscle(s) and tendon(s) of the rotator cuff of right shoulder, initial encounter (principal) | CPT/HCPCS: 73221 ==

== ENCOUNTER 2024-07-22 11:22 | Outpatient (REF) | payer MEDICAID, SELFPAY ==
--- NOTE | ~2024-07-22 | MR_ITS ---
EXAMINATION: MR SHOULDER, RIGHT CLINICAL INFORMATION: Right shoulder pain x1 month, decreased range of motion. Unable to raise arm. COMPARISON: None TECHNIQUE: Multiplanar multisequence MR imaging of the right shoulder was done without IV contrast. Examination performed on a 1.5 Rachel Siemens unit utilizing standard sequences. FINDINGS: There is motion degradation on multiple pulsing sequences, limiting sensitivity of the examination. Rotator Cuff and Biceps Tendon: Supraspinatus: High-grade near full-thickness insertional tearing of the supraspinatus tendon anterior fibers, measuring approximately 7 mm in transverse by 7 mm in AP diameter (series 8, image 16; series 11, image 23). A few fibers are remaining intact and there is no tendinous retraction. The remainder of the tendon appears intact without tearing or signal alteration. The muscle belly appears normal. Infraspinatus: Appears intact and normal in signal. There is no discrete tear. The muscle belly is normal in volume. Subscapularis: The tendon appears intact without discrete tearing. No abnormality of the muscle belly. Teres Minor: Intact and normal in signal. No discrete tear. Normal muscle belly. Biceps Long Head: Normally located within the groove. The tendon has normal morphology. There is increased fluid around the tendon consistent with tenosynovitis. The tendon within the rotator interval has normal signal and morphology. The anchor appears intact. AC Joint and Acromiohumeral Arch: There is a type II acromion. There is no subacromial spurring. There is mild to moderate degenerative arthropathy of the AC joint with mild superior and undersurface spurring. There is minimal supraspinatus outlet stenosis. There is no loss of the subacromial space. Glenohumeral Joint and Labrum: There is normal joint fluid present. There is no joint effusion. There are no full-thickness cartilaginous defects or foci of subchondral bone plate edema. Cartilage is difficult to evaluate due to motion. Labrum is difficult to characterize due to motion although there is is irregular linear signal throughout the superior and anterior labrum, possibly representing tearing. Osseous Structures: Then there is no gross bone marrow edema to suggest contusion or fracture. There is no abnormal infiltrating bone marrow signal. Spino-glenoid Notch: Normal. Quadrilateral Space: Normal. Other: Mildly increased signal in the subacromial/subdeltoid bursa, suggestive of bursitis. The glenohumeral ligaments appear intact. No thickening. MR/MR shoulder RT wo con IMPRESSION: Exam degraded by motion on multiple pulsing sequences. This limits sensitivity of the study. 1. High-grade insertional tearing of the anterior supraspinatus tendon. No complete tear or tendinous retraction is evident. Normal muscle belly. 2. Remainder of the rotator cuff appears intact without additional tear or significant tendinopathy. 3. Mild tenosynovitis of the long head of the biceps tendon. The tendon is otherwise intact and normal in morphology. 4. Findings suggesting but not definitive for superior labral tearing extending into the anterior labrum. Evaluation is limited by motion artifact. 5. Mild subacromial/subdeltoid bursitis. Electronically signed by: Iglesia Cantor MD 07/24/2024 09:57 AM EDT
== END 2024-07-22 11:23 | disposition home or self-care (01) ==
LOC: HO.MRI 11:22
PROVIDERS: PCP Internal Medicine; Visit Provider Student in an Organized Health Care Education/Training Program
DX: M25.511 Pain in right shoulder (principal)
CPT/HCPCS: 73221

== ENCOUNTER 2024-08-24 15:31 | Outpatient (AMB) | payer MEDICAID, SELFPAY ==
--- NOTE | 2024-08-24 15:32 | MHC.OFFVIS ---
Vital Signs 08/24/24 15:43 Height 5 ft 5 in Weight 160 lb BMI 26.6 BP 114/64 Blood Pressure Location Rt brachial Position Sitting Pulse 56 Pulse Source Pulse Oximeter Pulse Oximetry (%) 97 Oxygen Delivery Method Room Air Intake Visit Reasons: Follow up CIC Intake Note: ESTABLISHED PATIENT for mgmt of GERD + IBS CC; C.O. LLQ pain and constipation intermittently. Occasional BRB per rectum. Pt also requests refills of all of his meds. Nuclear Fuels Research Engineer Required: No Accompanied by: Self / Same As Patient Allergies ibuprofen (IBUPROFEN) Allergy (Intermediate, Verified 08/24/24 15:39) KIDNEY ISSUES Penicillins (PENICILLINS) Allergy (Intermediate, Verified 08/24/24 15:39) RASH HPI HPI Follow up CIC: Details: Assessment & Plan (1) Nausea and vomiting: Code(s): R11.2 - Nausea with vomiting, unspecified Category: Medical (2) Illiterate: Code(s): Z55.0 - Illiteracy and low-level literacy Category: Social Hx (3) Chronic idiopathic constipation: Code(s): K59.04 - Chronic idiopathic constipation Category: Medical (4) GERD (gastroesophageal reflux disease): Code(s): K21.9 - Gastro-esophageal reflux disease without esophagitis Category: Medical Plan He is sleeping better with the meclizine bid and the mirtazepine at 45mg is helping him to sleep better. 72 micro g daily, omeprazole 40 mg daily, and simethicone 180 mg. He continues also on his methadone therapy. He continues to wait for the trial of his son's murderer. ROV 6 mos. Medications: Refilled omeprazole 40 mg PO QAM 90 caps 2RF simethicone after meals 180 mg PO .TIDAC 90 caps 6RF 30 days R14.0 - Abdominal distension (gaseous) mirtazapine 45 mg PO BEDTIME 30 tabs 3RF F43.21 - Adjustment disorder with depressed mood hydrocortisone 2.5% (Proctosol HC) BE SURE TO INCLUDE RECTAL APPICATOR!! 1 appl [place] BID 30 grams 6RF hemorrhoids K64.9 - Unspecified hemorrhoids linaclotide (Linzess) 72 mcg PO QAM 30 caps 6RF meclizine 50 mg PO BID 60 tabs 6RF R42 - Dizziness and giddiness sennosides (Senna Laxative) 17.2 mg (2 x 8.6 mg) PO BEDTIME 60 tabs 6RF K59.04 - Chronic idiopathic constipation, K21.9 - Gastro-esophageal reflux disease without esophagitis, R11.2 - Nausea with vomiting, unspecified TODAYS VISIT He is doing okay on his GI medications. I have given him mirtazepine at 45mg is helping him to sleep better. 72 micro g daily, omeprazole 40 mg daily, and simethicone 180 mg. He woke up in a great deal fo right arm pain, it seems he needs shoulder surgery for roataor cuff tears and capsular tears. His son's murder trial has not yet started, it sounds like the defendant has had transmitter engineer problems. This and problems seeing his grandchildren are causing his some depression. His son had custody but now his Ex has custody as the was not a fit mother. However, he has problems in relating to his ex and her new as well. ROV 2 mos. PFSH Medical History History of heroin abuse Chest wall trauma (~2010) Closed fracture of sternum Intercostal neuralgia Dysuria UTI (urinary tract infection) Nephrolithiasis Hemorrhoids Erectile dysfunction Depression Substance abuse Chronic low back pain High cholesterol Surgical History History of thoracic surgery (~2010) Hx of cystoscopy (~2000) Hx of dilation of urethra (~2000) Hx of hemorrhoidectomy (~2007) Hx of colonoscopy Family History Father Emphysema lung Heart disease Mother Diabetes Heart problem HTN (hypertension) Family/Other HTN (hypertension) Heart problem Social History Alcohol intake: current Alcohol intake frequency: does not drink Cigarettes Per Day: 2 Substance Use Type: Marijuana Review of Systems Const Denies fatigue, Denies fever(s), Denies night sweats, Denies poor appetite and Denies weight loss ENT Reports Normal hearing present, Denies dental pain, Denies dysphagia, Denies hearing loss, Denies mouth pain, Denies odynophagia, Denies throat swelling, Denies tongue swelling and Reports other (Dentition adequate) Card Reports no additional complaints Resp Reports no additional complaints GI Details: Denies abdominal pain, Denies melena, Denies bloating, Denies hematochezia, Reports constipation, Denies GI cramping, Denies dysphagia, Denies excessive flatus, Denies early satiety, Reports heartburn, Denies diarrhea, Reports nausea, Denies odynophagia, Denies vomiting and Denies hematemesis Musc Reports myalgias, Reports arthralgias and Reports radiating pain into limb Skin/Breast Denies pruritus, Denies lesions, Denies rash and Denies jaundice Neuro Reports Normal hearing present and Denies Abnormal speech present Psych Reports abnormal sleep pattern, Reports anxiety, Reports depression, Denies homicidal ideation and Denies suicidal ideation Endo Denies fatigue Aller/Immun Denies throat swelling and Denies tongue swelling Physical Exam Vital Signs: Last Vital Signs Pulse 56 08/24/24 15:43 BP 114/64 08/24/24 15:43 Pulse Ox 97 08/24/24 15:43 Oxygen Delivery Method Room Air 08/24/24 15:43 BMI result Body Mass Index 26.6 Const General: cooperative, no acute distress, well developed and well groomed Nutritional Appearance: well nourished and obese Orientation/consciousness: oriented to person, oriented to place and oriented to time Limitations: No language barrier and ambulation with cane HEENT Head: Yes normocephalic and Yes atraumatic Eyes General: appearance normal, both eyes and all related structures Pupils: Equal, round and reactive pupils present Neck Neck: Yes normal visual inspection and Yes no lymphadenopathy Thyroid: Thyroid normal Resp Effort & Inspection: normal respiratory effort and able to speak in complete sentences Auscultation: clear to auscultation bilaterally Cardio Rate: regular rate Rhythm: regular rhythm Heart sounds: Normal, physiologic split S2 sound present Peripheral pulses: radial pulses present and posterior tibial pulses present GI Inspection: No distended, No Abdominal panniculus present and Yes obesity Palpation (GI): Soft to palpation, nontender, no guarding, not rigid and No hepatosplenomegaly present Percussion: Yes normal to percussion Auscultation: normal bowel sounds Rectal Exam - Male: Yes deferred Skin General skin exam: no rashes or lesions noted, turgor normal, skin not dry, no jaundice, No spider nevi and no striae Rashes: no rashes Nails: normal Neuro General: oriented to person, oriented to place and oriented to time Cranial nerves: Yes Equal, round and reactive pupils present and Yes Normal hearing present Speech: No Abnormal speech present Extrem Other: sling right arm General: No clubbing, No cyanosis and No edema Psych Appearance: grossly normal and well kempt Mental Status: mental status grossly normal Speech and movement: Normal speech and movement present Affect: normal affect Attitude: cooperative Thought process: Normal thought process present and not confabulating Thought content: Normal thought content present Insight: Limited insight present (Psych) Judgement: Limited judgement present (Psych) Assessment & Plan Assessment & Plan (1) GERD (gastroesophageal reflux disease): Code(s): K21.9 - Gastro-esophageal reflux disease without esophagitis Category: Medical (2) Chronic idiopathic constipation: Code(s): K59.04 - Chronic idiopathic constipation Category: Medical (3) Nausea and vomiting: Code(s): R11.2 - Nausea with vomiting, unspecified Category: Medical (4) Illiterate: Code(s): Z55.0 - Illiteracy and low-level literacy Category: Social Hx Plan He is doing okay on his GI medications. I have given him mirtazepine at 45mg is helping him to sleep better. 72 micro g daily, omeprazole 40 mg daily, and simethicone 180 mg. He woke up in a great deal of right arm pain, it seems he needs shoulder surgery for roataor cuff tears and capsular tears. His son's murder trial has not yet started, it sounds like the defendant has had transmitter engineer problems. This and problems seeing his grandchildren are causing his some depression. His son had custody but now his Ex has custody as the was not a fit mother. However, he has problems in relating to his ex and her new as well. ROV 2 mos. Medications: Refilled hydrocortisone 2.5% (Proctosol HC) BE SURE TO INCLUDE RECTAL APPICATOR!! 1 appl [place] BID 30 grams 6RF hemorrhoids K64.9 - Unspecified hemorrhoids linaclotide (Linzess) 72 mcg PO QAM 30 caps 6RF omeprazole 40 mg PO QAM 90 caps 2RF sennosides (Senna Laxative) 17.2 mg (2 x 8.6 mg) PO BEDTIME 60 tabs 6RF K21.9 - Gastro-esophageal reflux disease without esophagitis, K59.04 - Chronic idiopathic constipation, R11.2 - Nausea with vomiting, unspecified simethicone after meals 180 mg PO .TIDAC 90 caps 6RF 30 days R14.0 - Abdominal distension (gaseous) Coding Level of Care Code Est Pt Level 3 (91380) Diagnoses GERD (gastroesophageal reflux disease) K21.9 Chronic idiopathic constipation K59.04 Nausea and vomiting R11.2 Illiterate Z55.0
--- OUTSIDE RECORDS SUMMARY | 2024-08-24 15:33 | XMS_ITS | Clinical Summary ---
Author Organization [address] [facility] Address [address] [place] [address] Phone Care Team Providers Care Pizza Cook Name Role Phone Abel Looney MD Primary [...] Description 05/31/2024 1:30 PM EDT Ancillary Procedure [facility] [address] [facility] [address] [place] [address] PVD (peripheral vascular disease) ([facility] V24) from Last 3 Months Immunizations Name Administration [...] 2:18 PM EDT PVD (peripheral vascular disease) ([facility] V24) from Last 3 Months [...] PSV 68 cm/s CV VAS LAB Left ENAMEL BURNER prox sys PSV 133 cm/s CV VAS [...] PSV 61 cm/s CV VAS LAB Right ENAMEL BURNER prox sys PSV 122 cm/s CV VAS [...] The mid peroneal artery has triphasic flow. Cotton Program Technician Details A charles scale, color and doppler analysis ultrasound was performed. During the study longitudinal views were obtained. Pulsed wave doppler was performed. us Jesse A Eriberto DPM CV VASCULAR PROCEDURES Rhea l Result from Last 3 Months Insurance MEDICAID - [place] Care Teams Pizza Cook Relationship Specialty Start Date End Date Abel Looney MD [address] [place] [phone] PCP - General Internal Medicine 01/11/18
--- OUTSIDE RECORDS SUMMARY | 2024-08-24 15:33 | XMS_ITS | Encounter Summary ---
Author Organization [employer] Address [address] [facility] [address] [place] [address] Care Team Providers Care Boring Machine Operator Helper Name Role Phone Abel Klein MD Primary Care Provide r Reason for Visit * Reason Onset Date Comments call back requested 11/09/2022 Encounter Details Date Type Department Care Team ([facility] st Contact Info) Description 11/09/2022 Telephone [facility] [address] [place], [place] [phone] Abel Klein MD [address] [place] [address] call back requested Social History Tobacco Use [...] as of this encounter Plan of Treatment Not on file documented as of this encounter Visit Diagnoses Not on filedocumented in this encounter Additional Health Concerns Assessment Noted Time PHQ-9 Depression Total Score: 12 023 2:47 PM EDT documented as of this encounter Care Teams Boring Machine Operator Helper Relationship Specialty Start Date End Date Abel Klein MD [address] [place] [phone] PCP - General Internal Medicine 10/12/13 documented as of this encounter
[2024-08-24 15:43] VITALS: BP 114/64; PULSE 56; O2SAT 97; BMI 26.6
== END 2024-08-24 16:01 | disposition home or self-care (01) ==
LOC: HO.HGI 15:31
PROVIDERS: PCP Internal Medicine; Visit Provider Nurse Practitioner
DX: K21.9 Gastro-esophageal reflux disease without esophagitis (principal); K59.04 Chronic idiopathic constipation; R11.2 Nausea with vomiting, unspecified; Z55.0 Illiteracy and low-level literacy
CPT/HCPCS: 99213

== ENCOUNTER → 2024-08-24 15:31 | Outpatient (BNVA) | payer MEDICAID, SELFPAY | PROVIDERS: PCP Internal Medicine; Visit Provider Nurse Practitioner | DX: K21.9 Gastro-esophageal reflux disease without esophagitis (principal); K59.04 Chronic idiopathic constipation; R11.2 Nausea with vomiting, unspecified; Z55.0 Illiteracy and low-level literacy | CPT/HCPCS: 99212 ==

== ENCOUNTER 2024-09-14 15:16 | Outpatient (AMB) | payer MEDICAID, SELFPAY ==
--- NOTE | 2024-09-14 15:18 | A.OFFVIS_ITS ---
Vital Signs 09/14/24 15:20 Height 5 ft 5 in Weight 160 lb BMI 26.6 Handedness Right Intake Visit Reasons: Right shoulder pain and weakness Intake Note: Luis Alfredo 64 year old right hand dominant male who presents today as a new patient for right shoulder pain and weakness. Patient was referred by his PCP Severiano nava of [facility], 07/11/24. At that visit they discussed that the patient was walking his dog and felt a pull in the right shoulder. He was given Tylenol, tramadol 50mg and Xray/MRI was done. He reports weakness when trying to lift his right hand above shoulder height. He has tried physical therapy exercises which aggravated his pain. Allergies ibuprofen (IBUPROFEN) Allergy (Intermediate, Verified 08/24/24 15:39) KIDNEY ISSUES Penicillins (PENICILLINS) Allergy (Intermediate, Verified 08/24/24 15:39) RASH Medication List - Last Reconciled 09/14/24 by [place] Rm MD albuterol sulfate 90 mcg/actuation (ProAir HFA) 2 puffs inhalation Q4-6H PRN albuterol sulfate mg inhalation Q4-6H PRN artificial tears(hypromellose) 0.3% 1 drp ophthalmic (eye) Q2-4H PRN atorvastatin 40 mg PO BEDTIME clotrimazole 1% appl topical BID epinephrine 0.3 mL IM ONCE PRN escitalopram oxalate 10 mg PO DAILY fluticasone propionate 50 mcg/actuation 1 spray intranasal BID fluticasone propionate 220 mcg/actuation (Flovent HFA) 1 puff inhalation gabapentin 400 mg PO QID hydrocortisone 2.5% (Proctosol HC) 1 appl [place] BID levothyroxine 137 mcg PO QAM lidocaine 5% patches topical linaclotide (Linzess) 72 mcg PO QAM lisinopril-hydrochlorothiazide 10-12.5 mg 1 tab PO QAM meclizine 50 mg PO BID melatonin 10 mg PO BEDTIME methadone 55 mg PO DAILY mirtazapine 45 mg PO BEDTIME mometasone 200 mcg/actuation (Asmanex HFA) 1 puff inhalation BID montelukast 10 mg PO QAM multivitamin 1 tab PO QPM omega 2-apm-bou-fish oil 300 mg (120 mg- 180mg)-1,000 mg 1 cap PO omeprazole 40 mg PO QAM risperidone 3 mg PO BID saliva stimulant comb. no.3 (Biotene Moisturizing Mouth mucosal spray) 1 appl mucous membrane Q2H PRN sennosides (Senna Laxative) 17.2 mg (2 x 8.6 mg) PO BEDTIME simethicone 180 mg PO .TIDAC 30 days tamsulosin 0.4 mg PO BEDTIME 30 days PFSH Medical History History of heroin abuse Chest wall trauma (~2010) Closed fracture of sternum Intercostal neuralgia Dysuria UTI (urinary tract infection) Nephrolithiasis Hemorrhoids Erectile dysfunction Depression Substance abuse Chronic low back pain High cholesterol Surgical History History of thoracic surgery (~2010) Hx of cystoscopy (~2000) Hx of dilation of urethra (~2000) Hx of hemorrhoidectomy (~2007) Hx of colonoscopy Family History Father Emphysema lung Heart disease Mother Diabetes Heart problem HTN (hypertension) Family/Other HTN (hypertension) Heart problem Social History Alcohol intake: current Alcohol intake frequency: does not drink Cigarettes Per Day: 2 Substance Use Type: Marijuana Current occupational status: disabled Current occupation: right hand dominant Physical Exam Vital Signs: BMI result Body Mass Index 26.6 Const Other: Well-nourished well-developed very friendly male awake alert and oriented x3 in no acute distress Extrem Other: Bilateral upper extremity examination shows good capillary refill, no skin lesions noted, normal sensation light touch Right shoulder examination shows decreased range of motion when compared to his left shoulder, 4/5 strength with supraspinatus testing, positive impingement signs, tenderness over his acromioclavicular joint, no instability Results Reviewed Results Reviewed: MRI of the patient's right shoulder show severe acromioclavicular joint narrowing, a type 2 acromion, a full-thickness supraspinatus tendon tear Assessment & Plan Assessment & Plan (1) Rotator cuff insufficiency of right shoulder: Code(s): M25.311 - Other instability, right shoulder Category: Medical Plan Mr. Garcia presents with right shoulder pain and weakness due to impingement syndrome, acromioclavicular joint arthritis and a full-thickness rotator cuff tear. I had a lengthy discussion with the patient regarding the treatment options. At this point he has failed continued non operative treatments. The risks and benefits of right shoulder surgery were discussed at length with the patient. The patient wishes to proceed with surgery. Surgery will involve right shoulder arthroscopic distal clavicle excision, right shoulder arthroscopic acromioplasty and right shoulder mini open rotator cuff repair. The patient will be scheduled for next available date. He can do gentle gaxrt-[id number] exercises on his own in the meantime to prevent stiffness. Feel free to call me at any time should questions regarding his orthopedic management arise. Thank you very much for asking me to see this very friendly gentleman. I spent 21 minutes in reviewing the patient's records and imaging studies, seeing the patient and documenting in the medical record. Coding Level of Care Code New Pt Level 3 (92705) Complex EM visit Add On G2211 Diagnoses Rotator cuff insufficiency of right shoulder M25.311
--- OUTSIDE RECORDS SUMMARY | 2024-09-14 15:18 | XMS_ITS | Encounter Summary ---
Author Organization [employer] Address [address] [facility] [address] [place] [address] Care Team Providers Care Machine Operators Name Role Phone Abel Klein MD Primary Care Provide r Reason for Visit * Reason Onset Date Comments call back requested 11/09/2022 Encounter Details Date Type Department Care Team (Late st Contact Info) Description 11/09/2022 Telephone [facility] [address] [place] [phone] Abel Klein MD [address] [place] [phone] call back requested Social History Tobacco Use [...] Department Care Team (Late Contact Info) Description 11/14/2024 2:00 PM EDT Office Visit [facility] [address] [place] [phone] Abel Klein MD [address] [place] [address] documented as of this encounter Visit Diagnoses Not on filedocumented in this encounter Additional Health Concerns Assessment Noted Time PHQ-9 Depression Total Score: 12 023 2:47 PM EDT documented as of this encounter Care Teams Machine Operators Relationship Specialty Start Date End Date Abel Klein MD [address] [place] [address] PCP - General Internal Medicine 10/12/13 documented as of this encounter
--- OUTSIDE RECORDS SUMMARY | 2024-09-14 15:18 | XMS_ITS | Encounter Summary ---
Author Organization [facility] Address [address] [facility] [address] [place] [address] Phone Care Team Providers Care Hospital Account Liaison Name Role Phone Unknown, Unknown Primary Care Provider Pia walker Pcp, Unknown Primary Care Provider Abel Shi MD Primary Care Provide r Encounter Details Date Type Department Care Team (Late st Contact Info) Description 12/16/2017 Ancillary Orders [facility] [address] [place] [phone] Fabricio Fairbanks, DO [address] [place] [address] Bradycardia Social History Tobacco Use Types Packs/Day Years Used Date Smoking Tobacco: Never Assessed Comments Unknown Sex and Gender Information Value Date Recorded Sex Assigned at Unknown 08/25/2023 10:37 PM EDT Legal Sex Male 11:27 AM EDT Gender Identity Male 08/25/2023 10:37 PM EDT Sexual Orientation Don't know 08/25/2023 10 :37 PM EDT documented as of this encounter Plan of Treatment Not on file documented as of this encounter Results * Holter Monitor 24 Hours (12/16/2017 11:36 AM EDT) Anatomical Region Laterality Modality Heart Other Narrative 12/16/2017 5:13 PM EDT 24-hour monitor: Baseline rhythm is sinus with a minimum heart rate of 33 maximum 126 average 56 bpm. Occasional PACs and PVCs present. No symptoms reported. Patient event marker pressed during sinus rhythm and sinus tachycardia. Impression: Normal 24-hour monitor. Patient event markers during sinus rhythm. Procedure Note Sammy Patino MD - 12/16/2017 24-hour monitor: Baseline rhythm is sinus with a minimum heart rate of 33maximum 126 average 56 bpm. Occasional PACs and PVCs present. Nosymptoms reported. Patient event marker pressed during sinus rhythm andsinus tachycardia. Impression: Normal 24-hour monitor. Patient event markers during sinusrhythm. us Fabricio Fairbanks DO CV CARDIAC SERVICES ORDERABLE S Final Result documented in this encounter Visit Diagnoses Diagnosis Bradycardia Other specified cardiac dysrhythmias Bradycardia Other specified cardiac dysrhythmias documented in this encounter Care Teams Hospital Account Liaison Relationship Specialty Start Date End Date Unknown, Unknown, PCP - General 12/16/17 08/24/23 Pcp, Unknown PCP - General 08/25/23 10/04/23 Abel Looney MD [address] [place] [address] [address] [place] [address] [email or web address] PCP - General Internal Medicine 10/05/23 documented as of this encounter Additional Source Comments The information contained in this document represents components of the legal health record. It is not the complete legal health record.[facility]
--- OUTSIDE RECORDS SUMMARY | 2024-09-14 15:18 | XMS_ITS | Clinical Summary ---
Author Organization [address] [facility] Address [address] [place] [address] Phone Care Team Providers Care Computer Terminal Operator Name Role Phone Abel Looney MD Primary [...] 60 g 1 5 03/22/19 26 Active Immunizations Name Administration Dates Next Due [facility] SARS-CoV-2 COVID-19, mRNA, LNP-S, preservative free 10/06/2021,03/12/2021,07/15/2020,2020 [...] 08/30/2023 2:30 PM EDT Plan of Treatment Upcoming Encounters Date Type Department Care Team (Late st Contact Info) Description 10/31/2024 2:15 PM EDT Office Visit Orthopedic Surgery - [place] [address] [facility] [address] [place] [address] Jesse Wei, DPM [address] [facility] [address] [place] [address] Health Maintenance Due Date Last Done Comments [...] 2023 12/25/2022, 10/06/2021, 03/12/2021, Additional history exists Depression Screening 02/23/2024 Hypertension/CHF/CAD Annual BMP Blood Test 03/22/2024 DTaP,Tdap,and Td Vaccines (3 - Td or Tdap) 06/05/2024 06/05/2014, 10/31/1999 Influenza Vaccine (#1) 2024 , 12/02/2021, 01/28/2021, Additional history exists Cholesterol Screening [...] on patient's age to complete this topic Insurance MEDICAID - [place] Care Teams Computer Terminal Operator Relationship Specialty Start Date End Date Abel Looney MD [address] [place] [address] [place] [address] PCP - General Internal Medicine 01/11/18
[2024-09-14 15:20] VITALS: BMI 26.6
== END 2024-09-14 15:27 | disposition home or self-care (01) ==
LOC: HO.HOS 15:16
PROVIDERS: PCP Internal Medicine; Visit Provider Orthopaedic Surgery
DX: M25.311 Other instability, right shoulder (principal)
CPT/HCPCS: 99203

== ENCOUNTER → 2024-09-14 15:16 | Outpatient (BNVA) | payer MEDICAID, SELFPAY | PROVIDERS: PCP Internal Medicine; Visit Provider Orthopaedic Surgery | DX: M25.311 Other instability, right shoulder (principal) | CPT/HCPCS: 99202 ==

== ENCOUNTER 2024-10-20 15:46 | Outpatient (REF) | payer MEDICAID, SELFPAY ==
--- OUTSIDE RECORDS SUMMARY | 2024-10-20 14:45 | XMS_ITS | Encounter Summary ---
Author Organization [employer] Address [address] [place] [address] Care Team Providers Care Regulatory Affairs Specialist Name Role Phone Abel Klein MD Primary Care Provide r Encounter Details Date Type Department Care Team (Late st Contact Info) Description 10/20/2024 2:45 PM EDT Office Visit [facility] [address] [place], [place] [phone] Lauryn Molina NP [address] [place], [place] [phone] Pre-op examination (Primary Dx) Social History Tobacco Use Types [...] Answer Date Recorded Patient Health Questionnaire-9 Score 20 07/11/2024 Patient Health Questionnaire-9 Score 07/11/2024 Last PHQ-9: Questionnaire Data Not on file 0 07/11/2024 Housing Stability Answer Date Recorded What is your housing situation today? I have lizett pack 07/11/[address] you li ve. Do you have problems with any of the following? None of the above 07/11/2024 Food Insecurity Answer Date Recorded Within the past 12 months, y ou worried that your food would run out before you got money to buy more: Never True 07/11/2024 Within the past 12 months,th e food you bought just didn't last and you didn't have enough money to get more: Never True Transportation Answer Date Recorded In the past 12 months, has l ack of transportation kept you from medical appts, meetings, work or from getting things needed for daily living? No 07/11/2024 Utilities Answer Date Recorded In the past 12 months, has t he electric, gas, oil or water company threatened to shut off services in your home? No 07/11/2024 Depression Answer Date Recorded Patient Health Questionnaire-2 Score 6 07/11/2024 Internet Access Answer Date Recorded Internet Access Q1 Yes 07/11/2024 Internet Access Q2 Not on file 07/11/2024 Sex and Gender Information Value Date Recorded Sex Assigned at Male 12/22/2021 10:14 AM EDT Legal Sex Male 10:14 AM EDT Gender Identity Male 12/22/2021 10:14 AM EDT Sexual Orientation Choose not to disclose 2021 10:14 AM EDT documented as of this encounter Last Filed Vital Signs Vital Sign Reading Time Taken Comments Blood Pressure 100/60 10/20/2024 2:56 PM EDT Pulse 66 10/20/2024 2:56 PM EDT Temperature 36.6 C (97.9 F) 10/20/2024 2:56 PM EDT Respiratory Rate 16 10/20/2024 2:56 PM EDT Oxygen Saturation 96% 10/20/2024 2:56 PM EDT Inhaled Oxygen Concentration - - Weight 76 kg (167 lb 9.6 oz) 10/20/2024 2:56 PM EDT Height - - Body Mass Index 27.05 07/27/2024 11:26 AM EDT documented in this encounter Functional Status * Over the last 2 weeks, how often have you been bothered by any of the following problems? Question Answer Date of Assessment Author Feeling nervous, anxious, or on edge 2 09/23 2:59 PM EDT Narcisa Chand MA Not being able to stop or co ntrol worrying 0 10/20/2024 2:59 PM EDT Narcisa Chand M A Worrying too much about diff erent things 1 10/20/2024 2:59 PM EDT Narcisa Chand M A Trouble relaxing 1 10/20/2024 2:59 PM EDT S Narcisa hooks MA Being so restless that it is hard to sit still 0 10/20/2024 2:59 PM EDT Narcisa Chand M A Becoming easily annoyed or irritable 0 09/23 2:59 PM EDT Narcisa Chand MA Feeling afraid as if somethi ng awful might happen 1 10/20/2024 2:59 PM EDT Narcisa Chand M A LANIE-7 Total Score 5 10/20/2024 2:59 PM EDT Narcisa Chand MA documented as of this encounter Plan of Treatment Upcoming Encounters Date Type Department Care Team (Late st Contact Info) Description 11/14/2024 2:00 PM EDT Office Visit [facility] [address] [place] [address] Abel Klein MD [address] [place] [address] 02/12/2025 2:30 PM EST Office Visit [facility] [address] [place] [address] Candice Edwards, OD [address] [place] [address] Scheduled Orders Name Type Priority Associated Diagnoses Orde r Schedule CBC auto differential Lab Routine Pre-op examination Expected: 10/20/2024 (Approximate), Expires: 10/20/2025 Basic Metabolic Panel Lab Routine Pre-op examination Expected: 10/20/2024 (Approximate), Expires: 10/20/2025 ECG 12 lead ECG Routine Pre-op examination Ordered: 10/20/2024 documented as of this encounter Visit Diagnoses Diagnosis Pre-op examination- Primary documented in this encounter Additional Health Concerns Assessment Noted Time PHQ-9 Depression Total Score: 20 025 1:53 PM EDT documented as of this encounter Care Teams Regulatory Affairs Specialist Relationship Specialty Start Date End Date Peterson Omero, Abel, MD [address] [place] [address] PCP - General Internal Medicine 10/12/13 documented as of this encounter
--- OUTSIDE RECORDS SUMMARY | 2024-10-20 15:48 | XMS_ITS | Encounter Summary ---
Author Organization [employer] Address [address] [place] [address] Care Team Providers Care Cook Boat Name Role Phone Abel Klein MD Primary Care Provide r Encounter Details Date Type Department Care Team (Late st Contact Info) Description 08/09/2024 Telephone [facility] [address] [place], [place] [phone] Abel Klein MD [address] [place], [place] [phone] Social History Tobacco Use Types Packs/Day Years [...] Score 20 07/11/2024 Patient Health Questionnaire-9 Score 20 07/11/2024 Last PHQ-9: Questionnaire Data Not on [...] encounter Miscellaneous Notes * Telephone Encounter - Lakshmi Santiago RN - 08/11/2024 3:07 PM EDT Called pt. He states that he has not been sleeping at night. Pt. Takes Tylenol and Naproxen with norelief. Pt. States that he has to see a surgeon on 09/13/24 for right shoulder superior labral tendon tear extending into the anterior labrum with mild subacromial/subdeltoid bursitis. Pt. States thathe cannot use arm at all due to the immense pain. Pt. States when he tries to use his arm to cook or do ADL's He see's stars . Pt. States that he is on Methadone but, even the At the clinic states that he needs some pain medication to help him with his pain 12/01. Will send request to providerto see what they can send to pt. Pharmacy to give him comfort. Please see MRI of shoulder in chart. Please advise and have Green team nurse call pt. Back when a RX is sent to Pharmacy. Protocol Used: Shoulder Pain (Adult) Protocol-Based Disposition: Go to Office or Video Visit Now Positive Triage Question: * Severe pain (e.g., excruciating, unable to do any normal activities) * All higher-acuity triage questions were negative Care Advice Discussed: * Reassurance and Education - Shoulder Pain * Pain Medicines documented in this encounter Plan of Treatment Upcoming Encounters Date Type Department Care Team (Late st Contact Info) Description 11/14/2024 2:00 PM EDT Office Visit [facility] [address] [place] [phone] Abel Klein MD [address] [place] [address] 02/12/2025 2:30 PM EST Office Visit [facility] OPTOMETRY [address] [place] [address] TarCandice rodriguez, OD [address] [place] [address] documented as of this encounter Visit Diagnoses Not on filedocumented in this encounter Additional Health Concerns Assessment Noted Time PHQ-9 Depression Total Score: 20 025 1:53 PM EDT documented as of this encounter Care Teams Cook Boat Relationship Specialty Start Date End Date Abel Klein MD [address] [place] [address] PCP - General Internal Medicine 10/12/13 documented as of this encounter
--- OUTSIDE RECORDS SUMMARY | 2024-10-20 15:48 | XMS_ITS | Encounter Summary ---
Author Organization [employer] Address [address] [facility] [address]t [place] [address] Care Team Providers Care Airline Pilot/First Officer Name Role Phone Abel Klein MD Primary Care Provide r Reason for Visit * Reason Onset Date Comments call back requested 11/09/2022 Encounter Details Date Type Department Care Team ([facility] Contact Info) Description 11/09/2022 Telephone [facility] [address] [place] [phone] Abel Klein MD [address] [place] [phone] call back requested Social History Tobacco Use [...] Upcoming Encounters Date Type Department Care Team ([facility] Contact Info) Description 11/14/2024 2:00 PM EDT Office Visit [facility] [address] [place] [phone] Abel Klein MD [address] [place] [address] 02/12/2025 2:30 PM EST Office Visit [facility] OPTOMETRY [address] [place], [place] [phone] Candice Edwards, OD [address] [place], [place] [phone] documented as of this encounter Visit Diagnoses Not on filedocumented in this encounter Additional Health Concerns Assessment Noted Time PHQ-9 Depression Total Score: 12 023 2:47 PM EDT documented as of this encounter Care Teams Airline Pilot/First Officer Relationship Specialty Start Date End Date Abel Klein MD [address] [place] [address] PCP - General Internal Medicine 10/12/13 documented as of this encounter
--- OUTSIDE RECORDS SUMMARY | 2024-10-20 15:48 | XMS_ITS | Encounter Summary ---
Author Organization [employer] Address [address] [facility] [address] [facility] [place] [address] Care Team Providers Care Cheese Wrapper Name Role Phone Abel Klein MD Primary Care Provide r Encounter Details Date Type Department Care Team (Latest Contact Info) Description 10/20/2024 Travel Social History Tobacco Use Types Packs/Day Years [...] AM EDT documented as of this encounter Functional Status * Over the [...] Description 11/14/2024 2:00 PM EDT Office Visit [facility] [address] [place], [place] [phone] Abel Klein MD [address] [place], [place] [phone] 02/12/2025 2:30 PM EST Office Visit [facility] [address] [place], [place] [phone] Candice Edwards, OD [address] [place], [place] [phone] documented as of this encounter Visit Diagnoses Not on filedocumented in this encounter Additional Health Concerns Assessment Noted Time PHQ-9 Depression Total Score: 20 025 1:53 PM EDT documented as of this encounter Care Teams Cheese Wrapper Relationship Specialty Start Date End Date Abel Klein MD [address] [place], [place] [phone] PCP - General Internal Medicine 10/12/13 documented as of this encounter
--- OUTSIDE RECORDS SUMMARY | 2024-10-20 15:48 | XMS_ITS | Encounter Summary ---
Author Organization [employer] Address [address] [facility] [address] [place] [address] Care Team Providers Care Microeconomics Professor Name Role Phone Abel Klein MD Primary Care Provide r Encounter Details Date Type Department Care Team (Late st Contact Info) Description 05/08/2022 Orders Only [facility] CHC MED & PEDS [address] [place] [address] Miya Stovall LPN Social History Tobacco Use [...] Description 11/14/2024 2:00 PM EDT Office Visit [facility] MEDICINE [address] [place] [address] Abel Klein MD 230 [place] [address] 02/12/2025 2:30 PM EST Office Visit [facility] OPTOMETRY [address] [place] [address] Candice Edwards, OD 267 [place] [address] documented as of this encounter Visit Diagnoses Not on filedocumented in this encounter Care Teams Microeconomics Professor Relationship Specialty Start Date End Date Abel Klein MD [address] [place] [address] PCP - General Internal Medicine 10/12/13 documented as of this encounter
--- OUTSIDE RECORDS SUMMARY | 2024-10-20 15:48 | XMS_ITS | Encounter Summary ---
Author Organization [facility] Address [address] [facility] [address] [place] [address] Phone Care Team Providers Care Airline Pilot Name Role Phone Unknown, Unknown Primary Care Provider Pia walker Pcp, Unknown Primary Care Provider Abel Shi MD Primary Care Provide r Encounter Details Date Type Department Care Team (Late st Contact Info) Description 12/16/2017 Ancillary Orders [facility] [address] [place] [address] Fabricio Fairbanks, DO [address] [place] [address] Bradycardia Social History Tobacco Use Types Packs/Day [...] dysrhythmias documented in this encounter Care Teams Airline Pilot Relationship Specialty Start Date End Date Unknown, Unknown, PCP - General 12/16/17 08/24/23 Pcp, Unknown PCP - General 08/25/23 10/04/23 Abel Looney MD [address] [place] [address] [address] [place] [address] [email or web address] PCP - General Internal Medicine 10/05/23 documented as of this encounter Additional Source Comments The information contained in this document represents components of the legal health record. It is not the complete legal health record.[facility]
--- OUTSIDE RECORDS SUMMARY | 2024-10-20 15:48 | XMS_ITS | Clinical Summary ---
Author Organization [facility] Address [address] [place] [address] [place] [phone] Phone Care Team Providers Care Advertising Inserter Name Role Phone Abel Looney MD Primary Care Provide r Allergies Active Allergy Reactions Criticality Noted Date Comments Ibuprofen 08/25/2023 Penicillins Hives High 08/25/2023 Medications No known medications Social History Tobacco Use Types Packs/Day Years Used Date Smoking Tobacco: Never Assessed Education Answer Date Recorded Are you interested in more education? Not on evelyn e 08/26/2023 Are you concerned about learning? Not on file 08/26/2023 No 08/26/2023 No 08/26/2023 Digital Access Answer Date Recorded No 08/26/2023 No 08/26/2023 Reliable internet access at home? Not on file 08/26/2023 Device with a working camera? Not on file Intimate Partner Violence Answer Date R ecorded Are you denied basic needs s uch as food, clothing, or medical care? No 08/25/2023 In the past 12 months have y ou been in a relationship with a person who hurts, threatens, or tries to control you? No 08/25/2023 Are you denied basic needs s uch as food, clothing, or medical care? No 08/25/2023 In the past 12 months have y ou been in a relationship with a person who hurts, threatens, or tries to control you? No 08/25/2023 Comments Unknown Sex and Gender Information Value Date Recorded Sex Assigned at Unknown 08/25/2023 10:37 PM EDT Legal Sex Male 11:27 AM EDT Gender Identity Male 08/25/2023 10:37 PM EDT Sexual Orientation Don't know 08/25/2023 10 :37 PM EDT Last Filed Vital Signs Vital Sign Reading Time Taken Comments Blood Pressure 136/79 08/26/2023 2:06 AM EDT Pulse 48 08/26/2023 2:06 AM EDT Temperature 36.5 C (97.7 F) 08/26/2023 2:06 AM EDT Respiratory Rate 16 08/26/2023 2:06 AM EDT Oxygen Saturation 99% 08/26/2023 2:06 AM EDT Inhaled Oxygen Concentration - - Weight - - Height - - Body Mass Index - - Plan of Treatment Health Maintenance Due Date Last Done Comments LIPID PANEL 1960 DEPRESSION SCREENING 1972 SMOKING Hx and SMOKELESS TOB ACCO SCREENING 1973 HEPATITIS C SCREENING 1978 HIV ONE-TIME SCREENING (18-6 5 YEARS) 1978 COLOGUARD 2005 COLONOSCOPY 2005 COLORECTAL CANCER SCREENING 2005 FIT TEST 2005 FOBT 2005 SIGMOIDOSCOPY 2005 VIRTUAL COLONOSCOPY 2005 PNEUMOCOCCAL VACCINES (50+ y ears) (2 of 2 - PCV) 2010 01/03/1996 ZOSTER VACCINES (1 of 2) 2010 COVID-19 VACCINE (2 - 2023-2 5 season) 2023 06/24/2020 Adult Td,Tdap Booster 06/05/2024 06/05/2014 INFLUENZA VACCINE (#1) 2024 RSV VACCINE (1 - 1-dose 75+ series) 08/22/2035 HEPATITIS A VACCINES Aged Out No long er eligible based on patient's age to complete this topic HIB VACCINES Aged Out No longer eligi ble based on patient's age to complete this topic MENINGOCOCCAL VACCINES (ACWY) Aged Out No longer eligible based on patient's age to complete this topic MENINGOCOCCAL VACCINES (B) Aged Out N o longer eligible based on patient's age to complete this topic Medical Devices Not on [place] [address] [place] [address] [place] [address] [place] [address] [employer] [facility] [facility] [address] [place] [address] [place] [address] [employer]3 [facility] C3 ACO Care Teams Advertising Inserter Relationship Specialty Start Date End Date Abel Looney MD [address] [place] [address] [address] [place] [phone] [email or web address] PCP - General Internal Medicine 10/05/23 Additional Source Comments The information contained in this document represents components of the legal health record. It is not the complete legal health record.[facility]
--- OUTSIDE RECORDS SUMMARY | 2024-10-20 15:48 | XMS_ITS | Encounter Summary ---
Author Organization [employer] Address [address] [facility] [address] 7[address] [place] [address] Care Team Providers Care Nutrition Coordinator Name Role Phone Abel Klein MD Primary Care Provide r Reason for Visit * Reason Onset Date Comments CHARTPREP 10/19/2024 Encounter Details Date Type Department Care Team ([facility] st Contact Info) Description 10/19/2024 Telephone [facility] MEDICINE [address] [place] [address] Shante Tolliver MA CHARTPREP Social History Tobacco Use Types Packs/Day Years [...] encounter Miscellaneous Notes * Telephone Encounter - Shante Tolliver MA - 10/19/2024 4:24 PM EDT Chart Prep Labs: done Images: done Referrals: complete Vaccines due: Covid, Flu, PCV20, Tdap, RSV, and Zoster Screenings: colonoscopy Overdue care gaps: LANIE-7 documented in this encounter Plan of Treatment Upcoming Encounters Date Type Department Care Team ([facility] st Contact Info) Description 11/14/2024 2:00 PM EDT Office Visit [facility] MEDICINE [address] [place] [address] Abel Klein MD [address] [place] [address] 02/12/2025 2:30 PM EST Office Visit [facility] OPTOMETRY [address] [place] [address] Candice Edwards, OD [address] [place] [address] documented as of this encounter Visit Diagnoses Not on filedocumented in this encounter Additional Health Concerns Assessment Noted Time PHQ-9 Depression Total Score: 20 025 1:53 PM EDT documented as of this encounter Care Teams Nutrition Coordinator Relationship Specialty Start Date End Date Abel Klein MD [address] [place] [address] PCP - General Internal Medicine 10/12/13 documented as of this encounter
--- OUTSIDE RECORDS SUMMARY | 2024-10-20 15:48 | XMS_ITS | Encounter Summary ---
Author Organization [employer] Address [address] [facility] 7t [place] [address] Care Team Providers Care Emergency Response Technician Name Role Phone Abel Klein MD Primary Care Provide r Encounter Details Date Type Department Care Team (Late st Contact Info) Description 03/10/2022 Orders Only [facility] MEDICINE [address] [place] [address] Susy Ellington LPN Social History Tobacco Use [...] Description 11/14/2024 2:00 PM EDT Office Visit [facility] MEDICINE [address] [place] [address] Abel Klein MD 230 [place] [address] 02/12/2025 2:30 PM EST Office Visit [facility] OPTOMETRY [address] [place] [address] Candice Edwards, OD [address] [place] [address] documented as of this encounter Visit Diagnoses Not on filedocumented in this encounter Care Teams Emergency Response Technician Relationship Specialty Start Date End Date Abel Klein MD [address] [place] [address] PCP - General Internal Medicine 10/12/13 documented as of this encounter
--- OUTSIDE RECORDS SUMMARY | 2024-10-20 15:48 | XMS_ITS | Encounter Summary ---
Author Organization [employer] Address [address] [facility] [address] [place] [address] Care Team Providers Care Front Tender Name Role Phone Abel Klein MD Primary Care Provide r Reason for Visit * Reason Onset Date Comments Nurse Triage 07/10/2024 Encounter Details Date Type Department Care Team ([facility] st Contact Info) Description 07/10/2024 Telephone [facility] MEDICINE [address] [place], [place] [phone] Abel Klein MD [address] [place] [address] Nurse Triage Social History Tobacco Use Types Packs/Day Years [...] this encounter Functional Status * Over the past 2 weeks, how often have you been bothered by any of the following problems? Question Answer Date of Assessment Author Patient Health Questionnaire -2 Score 6 07/11/2024 1:53 PM EDT Maria Victoria Lipscomb MA * Little interest or pleasure in doing things Answer Date of Assessment Author Nearly every day 07/11/2024 1:53 PM EDT Maria Victoria Lipscomb MA * Feeling down, depressed, or hopeless Answer Date of Assessment Author Nearly every day 07/11/2024 1:53 PM EDT Maria Victoria Lipscomb MA * Trouble falling or staying asleep, or sleeping too much Answer Date of Assessment Author Nearly every day 07/11/2024 1:53 PM EDT Maria Victoria Lipscomb MA * Feeling tired or having little energy Answer Date of Assessment Author Nearly every day 07/11/2024 1:53 PM EDT Maria Victoria Lipscomb MA * Poor appetite or overeating Answer Date of Assessment Author More than half the days 07/11/2024 1:53 PM EDT Maria Victoria Carter MA * Feeling bad about yourself - or that you are a failure or have let yourself or your family down Answer Date of Assessment Author Nearly every day 07/11/2024 1:53 PM EDT Maria Victoria Lipscomb MA * Trouble concentrating on things, such as reading the newspaper or watching television Answer Date of Assessment Author Not at all 07/11/2024 1:53 PM EDT Kurtis Lipscomb MA * Moving or speaking so slowly that other people could have noticed? Or the opposite - being so fidgety or restless that you have been moving around a lot more than usual. Answer Date of Assessment Author Nearly every day 07/11/2024 1:53 PM EDT Maria Victoria Lipscomb MA * Thoughts that you would be better off or hurting yourself in some way Answer Date of Assessment Author Not at all 07/11/2024 1:53 PM EDT Kurtis Lipscomb MA * Patient Health Questionnaire-9 Score Answer Date of Assessment Author 07/11/2024 1:53 PM ASHLYT Kurtis Lipscomb MA * How difficult have these problems made it for you to do your work, take care of things at home, or get along with other people? Answer Date of Assessment Author Extremely difficult 07/11/2024 1:53 PM EDT Maria Victoria Escalante MA documented as of this encounter Miscellaneous Notes * Telephone Encounter - Kathy Overton RN - 07/10/2024 11:03 AM EDT Triage call Pt reports continued left shoulder/arm pain. Pt was seen in [facility] 06/22/24 for this concern. Pt was prescribed tylenol, tramadol and diclofenac sodium but, nothing is helping the pain . Pt reports unable to lift up arm and moving the arm causes much pain. Pt doesn't work and reports being disabled. Pt also reports , my son was murdered in [facility] and I have to go to the courthouse tomorrow. . Pt is advised to continue with instruction given in [facility] visit . ASK apt with Dr. Lara/20/25 at 130pm. Pt insurance is verified as active prior to booking. Protocol Used: Arm Pain (Adult) Protocol-Based Disposition: See in Office or Video Visit Today or Tomorrow Video visit not offered Positive Triage Question: * Patient wants to be seen * All higher-acuity triage questions were negative Care Advice Discussed: * Pain Medicines * Pain Medicines - Extra Notes and Warnings * Reasons To Call Back - Moderate pain (such as interferes with normal activities) lasts more than 3 days - Mild pain lasts more than 7 days - Arm swelling occurs - Signs of infection occur (such as spreading redness, warmth, fever) - You become worse * Use a Cold Pack for Pain * Use Heat After 48 Hours for Pain * Telephone Encounter - Kalina Verma - 07/10/2024 10:38 AM EDT Symptom: Arm Pain - Not From Injury Outcome: Schedule an urgent appointment (within 1 hour) or talk to a nurse or provider soon Reason: Severe pain now The caller accepted this outcome. documented in this encounter Plan of Treatment Upcoming Encounters Date Type Department Care Team (Late st Contact Info) Description 11/14/2024 2:00 PM EDT Office Visit [facility] MEDICINE [address] [place] [address] Abel Klein MD [address] [place] [address] 02/12/2025 2:30 PM EST Office Visit [facility] OPTOMETRY [address] [place] [address] Candice Edwards, MALINI [address] [place] [address] documented as of this encounter Visit Diagnoses Not on filedocumented in this encounter Additional Health Concerns Assessment Noted Time PHQ-9 Depression Total Score: 27 024 10:53 AM EDT documented as of this encounter Care Teams Front Tender Relationship Specialty Start Date End Date Abel Klein MD [address] [place] [address] PCP - General Internal Medicine 10/12/13 documented as of this encounter
--- OUTSIDE RECORDS SUMMARY | 2024-10-20 15:48 | XMS_ITS | Encounter Summary ---
Author Organization [employer] Address [address] [facility] [facility] [address] [place] [address] Care Team Providers Care Process Safety Engineer Name Role Phone Abel Klein MD Primary Care Provide r Encounter Details Date Type Department Care Team (Late st Contact Info) Description 04/02/2022 Orders Only [facility] CHC MED & PEDS [address] [place] [address] Miya Stovall LPN Social History Tobacco Use [...] Description 11/14/2024 2:00 PM EDT Office Visit [facility] MEDICINE [address] [place] [address] Abel Klein MD [address] [place] [address] 02/12/2025 2:30 PM EST Office Visit [facility] OPTOMETRY [address] [place] [address] Candice Edwards, OD [address] [place] [address] documented as of this encounter Visit Diagnoses Not on filedocumented in this encounter Care Teams Process Safety Engineer Relationship Specialty Start Date End Date Abel Klein MD [address] [place] [address] PCP - General Internal Medicine 10/12/13 documented as of this encounter
--- OUTSIDE RECORDS SUMMARY | 2024-10-20 15:48 | XMS_ITS | Encounter Summary ---
Author Organization [employer] Address [address] [facility] [place] [address] Care Team Providers Care Supervisor Contact And Service Clerks Name Role Phone Abel Klein MD Primary Care Provide r Reason for Visit * Reason Comments Med Refill Encounter Details Date Type Department Care Team ([facility] st Contact Info) Description 08/20/2024 Refill [facility] WALK-IN CENTER [address] [place], [place] [phone] Abel Klein MD [address] [place] [address] Social History Tobacco Use Types Packs/Day Years [...] 2:00 PM EDT Office Visit [facility] MEDICINE [address] [place] [address] Abel Klein MD 230 [place] [address] 02/12/2025 2:30 PM EST Office Visit [facility] OPTOMETRY [address] [place] [address] TarCandice rodriguez, OD [address] [place] [address] documented as of this encounter Visit Diagnoses Not on filedocumented in this encounter Additional Health Concerns Assessment Noted Time PHQ-9 Depression Total Score: 20 025 1:53 PM EDT documented as of this encounter Care Teams Supervisor Contact And Service Clerks Relationship Specialty Start Date End Date Abel Klein MD [address] [place] [address] PCP - General Internal Medicine 10/12/13 documented as of this encounter
--- OUTSIDE RECORDS SUMMARY | 2024-10-20 15:48 | XMS_ITS | Clinical Summary ---
Author Organization [facility] Address [address] [place] [address] Phone Care Team Providers Care High School Music Director Name Role Phone Abel Looney MD Primary [...] Active Immunizations Name Administration Dates Next Due [facility] SARS-CoV-2 COVID-19, mRNA, LNP-S, preservative free [...] PM EDT Office Visit [facility] [place] [address] [place] [address] [place] [phone] Jesse Wei, DPM [address] [place] [address] Health Maintenance Due Date Last Done Comments [...] topic Insurance MEDICAID - [place] Care Teams High School Music Director Relationship Specialty Start Date End Date Abel Looney MD [address] [place] [address] [place] [phone] PCP - General Internal Medicine 01/11/18
--- OUTSIDE RECORDS SUMMARY | 2024-10-20 15:48 | XMS_ITS | Clinical Summary ---
Author Organization [employer] Address [address] [place] [address] Care Team Providers Care Respiratory Supervisor Name Role Phone Abel Klein MD Primary [...] IN THE EVENING 180 capsule 024 Active diphenhydrAMINE (BENADryl) 25 MG tablet [...] the same time. 30 patch 024 Active Mometasone Furoate (Asmanex HFA) 200 MCG/ACT aerosol INHALE 1 PUFF BY MOUTH TWICE DAILY. RINSE MOUTH AFTER USING 30 g 5 024 Active gabapentin (Neurontin) 400 MG capsuleIndicatio [...] ONCE DAILY 30 tablet 3 025 Active lidocaine (Lidoderm) 5 % patchIndications :Acute pain of right shoulder Apply 1 patch topically Once per day. Remove & discard patch within 12 hours or as directed by MD. 30 patch 1 025 Active montelukast (Singulair) 10 MG tabletIndication s:Mild intermittent asthma without complication TAKE 1 TABLET BY MOUTH EVERY MORNING 90 tablet 1 025 Active atorvastatin (Lipitor) 40 MG tabletIndication s:Mixed hyperlipidemia TAKE 1 TABLET BY MOUTH AT BEDTIME 90 tablet 1 025 Active fluticasone (Flonase) 50 MCG/ACT nasal spray INSTILL 1 SPRAY IN EACH NOSTRIL ONCE DAILY IN THE MORNING 48 g 025 Active Diclofenac Sodium 1 % gel APPLY 2 GRAMS TOPICALLY TO AFFECTED AREA(S) 4 TIMES A DAY IN THE MORNING, AT NOON, IN THE EVENING, AND AT BEDTIME NEEDED FOR PAIN 100 g 2 025 Active Multiple Vitamin (Multivitamin) tablet TAKE 1 TABLET BY MOUTH EVERY EVENING WITH FOOD 90 tablet 1 025 Active melatonin 5 MG tabletIndication s:Primary insomnia TAKE 2 TABLETS BY MOUTH EVERY DAY AT BEDTIME 60 tablet 5 025 Active azithromycin (Zithromax Z-Immanuel) 250 MG tabletIndication s:Acute cough Take 2 tabs po x 1 day then 1 tab daily x 4 days 6 tablet 024 2024 Discontinued( Med list cleanup (will not trigger notification to Pharmacy)) melatonin 5 MG tabletIndication s:Primary insomnia TAKE 2 TABLETS BY MOUTH EVERY DAY AT BEDTIME 60 tablet 5 024 2024 Discontinued Multiple Vitamin (Multivitamin) tablet TAKE 1 TABLET BY MOUTH EVERY EVENING WITH FOOD 90 tablet 1 024 2024 Discontinued Diclofenac Sodium 1 % gel APPLY 2 GRAMS TOPICALLY TO AFFECTED AREA(S) 4 TIMES A DAY IN THE MORNING, AT NOON, IN THE EVENING, AND AT BEDTIME NEEDED FOR PAIN 100 g 2 025 2024 Discontinued Active Problems Problem Noted Date Diagnosed Date Acute pain of right shoulder 07/12/2024 Assessment & Plan (07/27/2024 11:45 AM EDT): Patient here for a follow up Initially presented with reports pain in right shoulder , was walking his dog who suddenly pull him ,since then having significant pain in shoulder ,denied noticing erythema,swelling nor increase skin temp . Was seen in [facility] had XR neg for fractures or dislocation , pt was prescribed Tylenol ,tramadol 50 mg TID , also diclofenac topical but not able to apply by himself. Patient was not improving w pain meds. Wearing a sling. Pt reports he is not able to raise arm above head level and pain is very intense . XR shoulder RT 06/2024 type I acromion. No acute bony abnormality or malalignment. Pt w intense pain with examination of right shoulderon exam MRI right shoulder showed: IMPRESSION: Exam degraded by motion on multiple pulsing sequences. This limits sensitivity of the study. 1. High-grade insertional tearing of the anterior supraspinatus tendon. No complete tear or tendinous retraction is evident. Normal muscle belly. 2. Remainder of the rotator cuff appears intact without additional tear or significant tendinopathy. 3. Mild tenosynovitis of the long head of the biceps tendon. The tendon is otherwise intact and normal in morphology. 4. Findings suggesting but not definitive for superior labral tearing extending into the anterior labrum. Evaluation is limited by motion artifact. 5. Mild subacromial/subdeltoid bursitis. 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 continue: sling that helps w pain tylenol prn up to 1gr Q 6 h ,advised to ask help from SHOE SALESPERSON to apply diclofenac topical lidoderm patches tramadol to 100 mg Q 8 h for -30 tab prescribed Avoid oral NSAIDs w hx of GONSALO Referred to Orthopedic , appointment scheduled for 09/12/2024 Assessment & Plan (07/12/2024 5:30 AM EDT): Reports pain for 3 weeks in right shoulder ,was walking his dog who suddenly pull him ,since then having significant pain in shoulder ,denies noticing erythema,swelling nor increase skin temp . Was seen in [facility] had XR neg for fractures or dislocation , pt was pxed Tylenol ,tramadol 50 mg TID , also diclofenac topical but not able to apply by himself. States pain is not improving w pain meds. Was also placed in [facility] on a sling that he is currently wearing . Pt reports he is not able to raise arm above head level and pain is very intense . -XR shoulder RT 06/2024 type I acromion. No acute bony abnormality or malalignment. Pt w intense pain with examination of right shoulder, no inflammation findings seen ,possible tendon/ligament pathology ,will need to r/o tears -continue sling that helps w pain -continue tylenol prn up to 1gr Q 6 h ,advised to ask help from SHOE SALESPERSON to apply diclofenac topical -prescribed lidoderm patches -increase tramadol to 100 mg Q 8 h for -30 tab prescribed -avoiding oral NSAIDs w hx of GONSALO -per pt was told to not take any more -MRI right shoulder -referred to Orthopedic Acute cough 12/28/2023 Assessment & Plan (12/28/2023 [...] He had had normal NCS BLE 2016 Pt uses a cane Patient was referred [...] did not go Will order a NCS [facility] care 10/13/2022 Assessment & Plan (10/13/2022 3:48 [...] Mild intermittent asthma 05/14/2017 Assessment & Plan (07/27/2024 11:44 AM EDT): No recent exacerbations taking Flovent 220mcg BID, Albuerol PRN Rapid Flu and Covid test: Supportive measures, Zpack Nicotine patches Assessment & Plan (12/28/2023 2:55 PM EST): [...] 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 continue to follow with the Methadone program. Assessment & Plan (09/23/2023 3:00 PM EDT): [...] low back pain 10/29/2011 Assessment & Plan (07/27/2024 11:43 AM EDT): Pt here with chronic low back pain with a previous Hx of Closed fracture of sternum Patient has persistent c/o left sided thoracic rib cage pain intensity 8/10 Currently on a regimen of Gabapentin 400 mg po QID. Pt. used to be under the care of [facility] pain management [facility], He had a nerve [...] wnl. Pt was under the care of [facility] Pain management on 05/14/2015 underwent cryoablation of [...] sequences. Patient now under the care of [facility] Pain [facility], last seen 11/04/2023 Open MRI at [facility] 08/2023 showed: IMPRESSION: Degenerative changes at L4-5 with left paracentral disc protrusion which causes mild narrowing of the left lateral recess and left neuroforamina. Minimal degenerative changes at L3-4. Pt reporting frequent falls, He would benefit from an increase in SHOE SALESPERSON hours Assessment & Plan (12/28/2023 2:45 PM EST): Pt here with chronic low back pain Uses Tylenol prn. with a previous Hx of Closed fracture of sternum Patient has persistent c/o left sided thoracic rib cage pain intensity 10/01 Currently on a regimen of Gabapentin 400 mg po QID. Pt. used to be under the care of [facility] pain management center, He had a nerve [...] wnl. Pt was under the care of [facility] Pain management on 05/14/2015 underwent cryoablation of [...] sequences. Patient now under the care of [facility] Pain Management, last seen 11/04/2023 Open MRI at [facility] 08/2023 showed: IMPRESSION: Degenerative changes at L4-5 with left paracentral disc protrusion which causes mild narrowing of the left lateral recess and left neuroforamina. Minimal degenerative changes at L3-4. Pt reporting frequent falls, requesting increase in SHOE SALESPERSON hours Assessment & Plan (09/23/2023 3:03 PM EDT): Pt here with chronic low back pain Uses Tylenol prn. with a previous Hx of Closed fracture of sternum Patient has persistent c/o left sided thoracic rib cage pain intensity 8/10 Currently on a regimen of Gabapentin 400 mg po QID. Pt. used to be under the care of [facility] pain management center, He had a nerve [...] wnl. Pt was under the care of [facility] Pain management on 05/14/2015 underwent cryoablation of [...] sequences. Patient now under the care of [facility] Pain Management, last seen 08/2023 they ordered an open MRI at [facility] Pt reporting frequent falls, requesting increase in SHOE SALESPERSON hours Will ask our Nurse to call KRISTINE to be re-evaluated Assessment & Plan (08/19/2023 3:52 PM EDT): Pt here with chronic low back pain Uses Tylenol prn. with a previous Hx of Closed fracture of sternum Patient has persistent c/o left sided thoracic rib cage pain intensity 8/10 Currently on a regimen of Gabapentin 400 mg po QID. Pt. used to be under the care of [facility] pain management center, He had a nerve [...] wnl. Pt was under the care of [facility] Pain management on 05/14/2015 underwent cryoablation of [...] He would like to be referred to [facility] Pain Management Assessment & Plan (08/03/2023 4:47 PM EDT): Pt here with chronic low back pain Uses Tylenol prn. with a previous Hx of Closed fracture of sternum Patient has persistent c/o left sided thoracic rib cage pain intensity 8/10 Currently on a regimen of Gabapentin 400 mg po QID. Pt. used to be under the care of [facility] pain management center, He had a nerve [...] wnl. Pt was under the care of [facility] Pain management on 05/14/2015 underwent cryoablation of [...] used to be under the care of [facility] pain management center, He had a nerve [...] wnl. Pt was under the care of [facility] Pain management on 05/14/2015 underwent cryoablation of [...] used to be under the care of [facility] pain management center, He had a nerve [...] wnl. Pt was under the care of [facility] Pain management on 05/14/2015 underwent cryoablation of T7,8 and 9 intercostal nerves. Previously he was eferred back to the Pain clinic for f/u previously Depressive disorder 10/29/2011 Assessment & Plan (09/23/2023 3:06 PM EDT): Pt with history of depression He used to follow at [facility] He no longer has a psychotherapist His depression has serge exacerbated by the loss of his son who was recently killed. Pt was evaluated by our clinician Pt's depression has improved Doing better on Lexapro 10 mg po daily with good resuls 4 months Assessment & Plan (08/19/2023 3:54 PM EDT): Pt with history of depression He used to follow at [facility] He no longer has a psychotherapist [...] of depression He used to follow at [facility] He no longer has a psychotherapist Today his depression has serge exacerbated by the loss of his son who was recently killed. Pt was evaluated by our clinician Pt very depressed, but not suicidal Plan: Start Lexapro 10 mg po daily 2 weeks follow up Assessment & Plan (10/13/2022 3:35 PM EDT): Pt here for a f/u He follows at [facility] He has a psychotherapist He does [...] ago 3 yr ago Triglycerides <150 mg/dL 378 High 343 High CM 276 High CM Comment: Desirable Triglyceride: less than 150 mg/dLBorderline High Triglyceride 150-199 mg/dLHigh Triglyceride: 200-499 mg/dLVery High Triglyceride: greater than or equal to 5OO mg/dL Cholesterol <200 mg/dL 370 High Comment: Desirable Cholesterol: less than 200 mg/dLBorderline High Cholesterol: 200-239 mg/dLHigh Cholesterol: greater than 239 mg/dL LDL Cholesterol Calculated <100 mg/dL 231 High Comment: Desirable LDL: less than 100 mg/dLNear Optimal/Above Optimal LDL: 110-129 mg/dLBorderline High LDL: 130-159 mg/dLHigh LDL: 160-189 mg/dLVery High LDL: greater than or equal to 190 mg/dL HDL Cholesterol >40 mg/dL 64 [...] Encounters Date Type Department Care Team Description 10/20/2024 2:45 PM EDT Office Visit [facility] [address] [place] [address] Lauryn Molina NP Pre-op examination (Primary Dx) 10/20/2024 Travel 10/19/2024 Telephone [facility] [address] [place] [address] Shante Tolliver MA CHARTPREP 10/04/2024 Telephone [facility] [address] [place] [phone] Amanda Parks MA Chart Prep 10/04/2024 Refill [facility] [address] [place] [address] Abel Klein MD Primary insomnia 09/29/2024 Refill [facility] [address] [facility] [place] [address] Abel Klein MD 09/18/2024 Telephone [facility] [address] [place] [phone] Abel Klein MD Appointment Request 09/12/2024 Refill [facility] [address] [facility] [place] [address] Abel Klein MD 09/07/2024 Telephone [facility] [address] [place] [phone] Abel Klein MD Appointment Confirmation 08/20/2024 Refill [facility] [address] Abel Klein MD 08/18/2024 Refill [facility] [place] [address] Abel Klein MD Mixed hyperlipidemia 08/15/2024 Refill [facility] [place] [address] Abel Klein MD Mild intermittent asthma without complication 08/14/2024 Telephone [facility] [place] [address] Abel Klein MD Med Refill 08/11/2024 Orders Only [facility] JOLENE Sanchez40 Demetrice Huang ANP Acute pain of right shoulder (Primary Dx) 08/09/2024 Telephone [facility] [place] [address] Abel Klein MD 08/09/2024 Telephone [facility] [address] [facility] [place], [place] [address] Abel Klein MD Letter Request (The patient returned my call, regarding a letter for an increase in SHOE SALESPERSON hours. He stated that he receives 16.45 service hours through [employer]. He has more difficulty with ADL's due to a shoulder injury.) 08/09/2024 Telephone [facility] [address] [facility] [place] [address] Abel Klein MD Letter Request (I called the patient at [phone], regarding a request for a letter, for an increase in SHOE SALESPERSON hours. There was no answer, and I reached a recording stating that the mailbox is full. I then called his turntable engineer Edwige, and reached a voicemail. I left a message, asking for the patient to return my call at ext [phone].) 08/01/2024 Telephone [facility] [place] [address] Abel Klein MD 08/01/2024 Refill [facility] [address] [place] [address] Luis Alfredo MiyaDO 07/27/2024 11:15 AM EDT Office Visit [facility] [address] [place] [address] Abel Klein MD Acute pain of right shoulder (Primary Dx); Opioid dependence in remission (CMS/HCC); Chronic bilateral low back pain with sciatica, sciatica laterality unspecified; Mild intermittent asthma without complication 07/27/2024 Travel 07/26/2024 Telephone [facility] [address] [place] [address] Abel Klein MD chart prep 07/24/2024 Results Follow-Up [facility] [address] [place] [address] Lisa Liao MD MR Shoulder w/o Contrast Right from Last 3 Months Immunizations Immunization Administration Dates Next Due Influenza injectable quadriv [...] 9.6 oz) 10/20/2024 2:56 PM EDT Height 167.6 cm (5' 6 ) 07/27/2024 11:26 AM EDT Body Mass Index 27.05 07/27/2024 11:26 AM EDT Plan of Treatment Upcoming Encounters Date Type Department Care Team (Late st Contact Info) Description 11/14/2024 2:00 PM EDT Office Visit [facility] [address] [place] [address] Abel Klein MD [address] [place] [address] 02/12/2025 2:30 PM EST Office Visit [facility] [address] [place] [address] Candice Edwards, OD [address] [place] [address] Health Maintenance Due Date Last Done Comments [...] 2023 12/25/2022, 10/06/2021, 03/12/2021, Additional history exists Dental Oral Exam 11/05/2023 05/04/2023 DTaP/Tdap/Td Vaccines (2 - Td or Tdap) 06/05/2024 06/05/2014, 10/31/1999 Influenza Vaccine (#1) 2024 3, 12/02/2021, 01/28/2021, Additional history exists Alcohol/Substance Use Screening 12/27/2024 12/28/2023 Depression Monitoring 01/11/2025 07/11/2024, 025 Disability Screening 07/11/2025 07/11/2024 SDOH Screening 07/11/2025 07/11/2024 Tobacco Screening 10/20/2025 10/20/2024 Dental X-Ray: Full Mouth 05/04/2026 05/04/2023 Lipid [...] Procedure Name Priority Date/Time Associated Diagnosis Comments MR SHOULDER WO CONTRAST RIGHT Routine 07/22/2024 11:19 AM EDT Acute pain of right shoulder LIPID [...] Recently Relevant to Health Maintenance Results * MR Shoulder w/o Contrast Right (07/22/2024 11:19 AM EDT) Anatomical Region Laterality Modality Upper Extremities, Shoulder Right Magn etic Resonance 07/22/2024 11:1 9 AM EDT Narrative 07/24/2024 9:59 AM EDT [address] [address] Magnetic Resonance Report Signed Patient: Den Garcia MR#: [id number] : 1960 Acct:[id number] Age/Sex: 63 / M ADM Date: 07/22/24 Loc: HO.MRI Attending Dr: Lisa Orozco MD Ordering Physician: Lisa Liao MD Date of Service: 07/22/24 Procedure(s): MR shoulder RT wo con Accession Number(s): [id number] cc: Abel Looney MD; Lisa Liao MD EXAMINATION: MR SHOULDER, RIGHT CLINICAL INFORMATION: Right shoulder pain x1 month, decreased range of motion. Unable to raise arm. COMPARISON: None TECHNIQUE: Multiplanar multisequence MR imaging of the right shoulder was done without IV contrast. Examination performed on a 1.5 Rachel Siemens unit utilizing standard sequences. FINDINGS: There is motion degradation on multiple pulsing sequences, limiting sensitivity of the examination. Rotator Cuff and Biceps Tendon: Supraspinatus: High-grade near full-thickness insertional tearing of the supraspinatus tendon anterior fibers, measuring approximately 7 mm in transverse by 7 mm in AP diameter (series 8, image 16; series 11, image 23). A few fibers are remaining intact and there is no tendinous retraction. The remainder of the tendon appears intact without tearing or signal alteration. The muscle belly appears normal. Infraspinatus: Appears intact and normal in signal. There is no discrete tear. The muscle belly is normal in volume. Subscapularis: The tendon appears intact without discrete tearing. No abnormality of the muscle belly. Teres Minor: Intact and normal in signal. No discrete tear. Normal muscle belly. Biceps Long Head: Normally located within the groove. The tendon has normal morphology. There is increased fluid around the tendon consistent with tenosynovitis. The tendon within the rotator interval has normal signal and morphology. The anchor appears intact. AC Joint and Acromiohumeral Arch: There is a type II acromion. There is no subacromial spurring. There is mild to moderate degenerative arthropathy of the AC joint with mild superior and undersurface spurring. There is minimal supraspinatus outlet stenosis. There is no loss of the subacromial space. Glenohumeral Joint and Labrum: There is normal joint fluid present. There is no joint effusion. There are no full-thickness cartilaginous defects or foci of subchondral bone plate edema. Cartilage is difficult to evaluate due to motion. Labrum is difficult to characterize due to motion although there is is irregular linear signal throughout the superior and anterior labrum, possibly representing tearing. Osseous Structures: Then there is no gross bone marrow edema to suggest contusion or fracture. There is no abnormal infiltrating bone marrow signal. Spino-glenoid Notch: Normal. Quadrilateral Space: Normal. Other: Mildly increased signal in the subacromial/subdeltoid bursa, suggestive of bursitis. The glenohumeral ligaments appear intact. No thickening. MR/MR shoulder RT wo con IMPRESSION: Exam degraded by motion on multiple pulsing sequences. This limits sensitivity of the study. 1. High-grade insertional tearing of the anterior supraspinatus tendon. No complete tear or tendinous retraction is evident. Normal muscle belly. 2. Remainder of the rotator cuff appears intact without additional tear or significant tendinopathy. 3. Mild tenosynovitis of the long head of the biceps tendon. The tendon is otherwise intact and normal in morphology. 4. Findings suggesting but not definitive for superior labral tearing extending into the anterior labrum. Evaluation is limited by motion artifact. 5. Mild subacromial/subdeltoid bursitis. Electronically signed by: Iglesia Cantor MD 07/24/2024 09:57 AM EDT Dictated By: Iglesia Cantor MD Signed By: <Electronically signed by Iglesia Cantor MD in OV> 07/24/24 0957 DD/ 1119 TD/TT: 07/22/24 1200 Foundation Coordinator: Procedure Note Donotuseinterpreter, Image - 07/24/[address] [address] Magnetic Resonance Report Signed Patient: Dani Garcia#: [id number] : 1Acct:[id number] Age/Sex: 63 / MADM Date: 07/22/24 Loc: HO.MRI Attending Dr: Lisa Orozco MD Ordering Physician: Lisa Liao MD Date of Service: 07/22/24 Procedure(s): MR shoulder RT wo con Accession Number(s): [id number] cc: Abel Looney MD; Lisa Liao MD EXAMINATION: MR SHOULDER, RIGHT CLINICAL INFORMATION: Right shoulder pain x1 month, decreased range of motion. Unable to raise arm. COMPARISON: None TECHNIQUE: Multiplanar multisequence MR imaging of the right shoulder was done without IV contrast. Examination performed on a 1.5 Rachel Siemens unit utilizing standard sequences. FINDINGS: There is motion degradation on multiple pulsing sequences, limiting sensitivity of the examination. Rotator Cuff and Biceps Tendon: Supraspinatus: High-grade near full-thickness insertional tearing of the supraspinatus tendon anterior fibers, measuring approximately 7 mm in transverse by 7 mm in AP diameter (series 8, image 16; series 11, image 23). A few fibers are remaining intact and there is no tendinous retraction. The remainder of the tendon appears intact without tearing or signal alteration. The muscle belly appears normal. Infraspinatus: Appears intact and normal in signal. There is no discrete tear. The muscle belly is normal in volume. Subscapularis: The tendon appears intact without discrete tearing. No abnormality of the muscle belly. Teres Minor: Intact and normal in signal. No discrete tear. Normal muscle belly. Biceps Long Head: Normally located within the groove. The tendon has normal morphology. There is increased fluid around the tendon consistent with tenosynovitis. The tendon within the rotator interval has normal signal and morphology. The anchor appears intact. AC Joint and Acromiohumeral Arch: There is a type II acromion. There is no subacromial spurring. There is mild to moderate degenerative arthropathy of the AC joint with mild superior and undersurface spurring. There is minimal supraspinatus outlet stenosis. There is no loss of the subacromial space. Glenohumeral Joint and Labrum: There is normal joint fluid present. There is no joint effusion. There are no full-thickness cartilaginous defects or foci of subchondral bone plate edema. Cartilage is difficult to evaluate due to motion. Labrum is difficult to characterize due to motion although there is is irregular linear signal throughout the superior and anterior labrum, possibly representing tearing. Osseous Structures: Then there is no gross bone marrow edema to suggest contusion or fracture. There is no abnormal infiltrating bone marrow signal. Spino-glenoid Notch: Normal. Quadrilateral Space: Normal. Other: Mildly increased signal in the subacromial/subdeltoid bursa, suggestive of bursitis. The glenohumeral ligaments appear intact. No thickening. MR/MR shoulder RT wo con IMPRESSION: Exam degraded by motion on multiple pulsing sequences. This limits sensitivity of the study. 1. High-grade insertional tearing of the anterior supraspinatus tendon. No complete tear or tendinous retraction is evident. Normal muscle belly. 2. Remainder of the rotator cuff appears intact without additional tear or significant tendinopathy. 3. Mild tenosynovitis of the long head of the biceps tendon. The tendon is otherwise intact and normal in morphology. 4. Findings suggesting but not definitive for superior labral tearing extending into the anterior labrum. Evaluation is limited by motion artifact. 5. Mild subacromial/subdeltoid bursitis. Electronically signed by: Iglesia Cantor MD 07/24/2024 09:57 AM EDT Dictated By: Iglesia Cantor MD Signed By: <Electronically signed by Iglesia Cantor MD in OV> 07/24/24 0957 DD/ 1119 TD/TT: 07/22/24 1200 Foundation Coordinator: Lisa Orozco MD IMG MRI PROCEDURE S Edited Result - Final * (ABNORMAL) Lipid Panel, Standard (09/20/2023 2:36 PM EDT) Triglycerides 298(H) <150 mg/dL [facility] Comment:Desirable Triglyceri de: less than 150 mg/dLBorderline High Triglyceride 150-199 mg/dLHigh Triglyceride: 200-499 mg/dLVery High Triglyceride: greater than or equal to 5OO mg/dL Cholesterol 200(H) <200 mg/dL [facility] Comment:Desirable Cholestero l: less than 200 mg/dLBorderline High Cholesterol: 200-239 mg/dLHigh Cholesterol: greater than 239 mg/dL LDL Cholesterol Calculated 100(H) <100 mg/dL [facility] Comment:Desirable LDL: less than 100 mg/dLNear Optimal/Above Optimal LDL: 110- 129 mg/dLBorderline High LDL: 130-159 mg/dLHigh LDL: 160-189 mg/dLVery High LDL: greater than or equal to 190 mg/dL HDL Cholesterol 41 >40 mg/dL [facility] Comment:Desirable HDL: great er than 40 mg/dL Note: This HDL assay may give artificially low results in patients with liver disease. Blood Venous blood specimen / Unknown 09/20/2023 2:36 PM EDT 09/20/2023 3:57 PM EDT Abel Jamil MD LAB BLOOD ORDERABLES Final Result Performing Organization Address [facility]/ZIP Co de Phone Number [facility] [address] [place] [phone] * Hepatitis C Antibody Reflex (10/13/2022 3:52 PM EDT) Hepatitis C Antibody Nonreactive Nonreactive [facility] Comment:Antibodies to HCV no t detected; does not exclude early acuteHCV infection. 10/13/2022 3:52 PM EDT 10/13/2022 5:29 PM EDT us Abel Jamil MD LAB BLOOD ORDERABLES Final Result [facility] [address] [place] [phone] * HIV Ab/Ag (JOLENE GIRON) (10/13/2022 3:52 PM EDT) HIV AB/AG Nonreactive Nonreactive [facility] Comment:HIV-1 p24 Ag and/or HIV-1/HIV-2 Ab not detected.A test result that is nonreactive does not exclude thepossibility of exposure to or infection with HIV-1 and/orHIV-2. Nonreactive results in this assay for individualswith prior exposure to HIV-1 and/or HIV-2 may be due toantigen and antibody levels that are below the limit ofdetection of this assay.The [employer] HIV Ag/Ab Combo assay result andsupplemental assay results should be interpreted inconjunction with the patient's clinical presentation,history and other laboratory results. If the results areinconsistent with clinical evidence, additional testing issuggested to confirm the result. 10/13/2022 3:52 PM EDT 10/13/2022 5:29 PM EDT us Abel Jamil MD LAB BLOOD ORDERABLES Final Result [facility] [address] [place] [phone] from Last 3 Months or Most Recently Relevant to Health Maintenance Insurance [employer] [employer] [place] ADULT Care Teams Respiratory Supervisor Relationship Specialty Start Date End Date Abel Klein MD [address] [place] [phone] PCP - General Internal Medicine 10/12/13
[2024-10-20 17:30] LABS: MANUAL DIFF FLAG NO
[2024-10-20 17:35] LABS: Hematocrit 37.5 % (42.0-52.0); Hemoglobin 12.6 g/dl (14.0-18.0); Imm Gran Abs Auto 0.03 X10*3/uL (0.00-0.03); Imm Gran Pct Auto 0.3 % (0.0-0.4); Lymphocytes Absolute Auto 3.6 X10*3/uL (1.2-4.9); Mean Corpuscular HGB Conc 33.6 g/dl (31.0-36.0); Mean Corpuscular Hemoglobin 31.1 pg (27.0-33.0); Mean Corpuscular Volume 92.6 fL (80.0-98.0); NRBC Abs Auto 0.000 X10*3/uL (0.0-0.012); NRBC Pct Auto 0.0 /100WBC (0.0-0.2); Platelet Count 328 X10*3/uL (160-400); Red Blood Count 4.05 X10*6/uL (4.60-5.80); White Blood Count 9.6 X10*3/uL (4.8-10.8)
[2024-10-20 18:43] LABS: Anion Gap 13 (12-20); Blood Urea Nitrogen 13 mg/dL (9-16); Calcium 9.7 mg/dL (8.4-10.2); Carbon Dioxide 29 mmol/L (22-29); Chloride 106 mmol/L (96-108); Estimated Glomerular Filt Rate 60; Potassium 4.8 mmol/L (3.3-5.1); Sodium 143 mmol/L (135-145)
== END 2024-10-20 15:47 | disposition home or self-care (01) ==
LOC: HO.HHCL 15:46
PROVIDERS: PCP Internal Medicine; Visit Provider Nurse Practitioner
DX: Z01.818 Encounter for other preprocedural examination (principal)
CPT/HCPCS: 36415; 80048; 85025

== ENCOUNTER 2024-10-24 14:54 | Emergency (ER) | payer OTHER, SELFPAY ==
--- OUTSIDE RECORDS SUMMARY | 2024-10-20 14:45 | XMS_ITS | Encounter Summary ---
Author Organization [employer] Address [address] [place] [address] Care Team Providers Care Broadcasting Equipment Mechanic Name Role Phone Abel Klein MD Primary Care Provide r Encounter Details Date Type Department Care Team (Late st Contact Info) Description 10/20/2024 2:45 PM EDT Office Visit [facility] [address] [place], [place] [phone] Lauryn Molina NP [address] [place], [place] [phone] Pre-op examination (Primary Dx); Bilateral leg numbness Social History Tobacco Use Types Packs/Day Years [...] Answer Date Recorded Patient Health Questionnaire-9 Score 07/11/2024 Patient Health Questionnaire-9 Score 07/11/2024 Last [...] Trouble relaxing 1 10/20/2024 2:59 PM EDT Narcisa Riggins MA Being so restless that it is [...] Chand MA documented as of this encounter Progress Notes * Lauryn Molina NP - 10/20/2024 2:45 PM EDT Den Garcia is a 64 y.o. male who presents to the office for a preoperative evaluation. Procedure: Shoulder Arthoscopy Surgeon: [place] Rm MD at [facility] Date of Procedure: October 27, 2024 Lab: BMP, CBC w/ diff requested EKG: requested, see attached Denies personal or family history of bleeding diathesis or life-threatening anesthetic reactions Denies kidney disease, liver disease or diabetes. Has thyroid disease and asthma which is controlled with Singulair and asmanex. Denies history of stroke. Denies problems with pain, stiffness, or arthritis in neck or jaw. Denies history of sleep apnea or loud snoring, but sometimes wakes from sleep choking or gasping for air. Denies allergy to tape, iodine, or latex Able to walk up a flight of stairs or run across a street without needing to stop to catch breath No known cardiac history, denies history of irregular heartbeat No history of alcohol withdrawal; not a regular, heavy drinker. Has cut down on smoking Chronic Medical Conditions: Problem List[1] Allergies: Allergies[2] Review of Systems Constitutional: Negative. Negative for chills and fever. HENT: Negative. Negative for congestion and sore throat. Eyes: Negative for discharge. Respiratory: Negative for cough, chest tightness and shortness of breath. Cardiovascular: Negative for chest pain and palpitations. Gastrointestinal: Negative. Negative for abdominal pain, constipation, diarrhea and nausea. Genitourinary: Negative. Negative for difficulty urinating. Musculoskeletal: Negative. Negative for arthralgias and myalgias. Skin: Negative for rash. Neurological: Positive for numbness. Negative for dizziness, speech difficulty, light-headedness and headaches. Hematological: Negative. Psychiatric/Behavioral: Negative for behavioral problems, self-injury and suicidal ideas. The patient is not nervous/anxious. OBJECTIVE Vitals: 10/20/24 1456 BP: 100/60 BP Location: Left arm Patient Position: Sitting BP Cuff Size: Adult Pulse: 66 Resp: 16 Temp: 97.9 ??F (36.6 ??C) TempSrc: Oral SpO2: 96% Weight: 167 lb 9.6 oz (76 kg) Physical Exam Vitals reviewed. Constitutional: General: He is not in acute distress. Appearance: Normal appearance. He is not ill-appearing. HENT: Head: Normocephalic and atraumatic. Right Ear: External ear normal. Left Ear: External ear normal. Nose: Nose normal. Eyes: General: No scleral icterus. Extraocular Movements: Extraocular movements intact. Cardiovascular: Rate and Rhythm: Normal rate and regular rhythm. Pulses: Normal pulses. Heart sounds: Normal heart sounds. Pulmonary: Effort: Pulmonary effort is normal. No respiratory distress. Breath sounds: Normal breath sounds. Musculoskeletal: General: Normal range of motion. Cervical back: Normal range of motion and neck supple. Lymphadenopathy: Cervical: No cervical adenopathy. Neurological: General: No focal deficit present. Mental Status: He is alert and oriented to person, place, and time. Gait: Gait normal. Psychiatric: Mood and Affect: Mood normal. Behavior: Behavior normal. PREOPERATIVE ASSESSMENT AND PLAN: -H&P completed -Medication list reviewed with patient and up to date. -Antibiotic prophylaxis before the procedure not indicated -The incidence of perioperative cardiovascular events varies according to the patient risk profile,patient's functional capacity, and risk of the proposed surgery. Active cardiac conditions that are contraindications to elective surgery: Surgery-Specific Cardiac Risk: medium Cardiac risk by patient profile (RCRI): Patient has 0 risk factors corresponding to 0.5%risk of a major cardiac event during surgery. Functional capacity = >4 METS. The patient reports being able to walk up 1 one flight of stairs and 2 blocks without stopping. This patient is at low risk for an intermediate risk procedure. The patient is at acceptable risk for the proposed procedure. Reviewed with patient that no surgery is completely free of risk and thisevaluation is to assist surgeon in accurately reviewing informed consent. Medication Recs: -Hold aspirin and NSAIDs 5 days before surgery -Stop Lisinopril-hydrochlorothiazide day of surgery. May restart day after the surgery unless directed differently by surgeon. Pain control: as determined by surgeon Assessment/Plan Diagnoses and all orders for this visit: Pre-op examination Comments: -patient is metabolically stable and may proceed with surgery -mild anema noted on CBC which surgeon can determine if acceptable for completing the procedure. Orders: - CBC auto differential; Future - Basic Metabolic Panel; Future - ECG 12 lead Bilateral leg numbness Comments: -encouraged f/u with PCP as scheduled Follow-up with PCP as scheduled for routine health or sooner as needed Medications Ordered Prior to Encounter[3] [1] Patient Active Problem List Diagnosis Chronic low back pain Depressive disorder Erectile dysfunction Hemorrhoids History of substance abuse ([facility]) Hypertensive disorder Mixed hyperlipidemia Varicose veins of lower extremity Smoker Opioid dependence in remission ([facility]) Mild intermittent asthma Hypothyroid Kidney stone Microscopic hematuria Bilateral leg numbness Preventative health care Insomnia Ingrowing nail, left great toe Tinea corporis Diffuse pain in left upper extremity Herpes zoster without complication Acute cough Tinea pedis of both feet Acute pain of right shoulder [2] Allergies Allergen Reactions Ibuprofen Other reaction(s): Pulmonary toxicity Nsaids Other Penicillins Rash [3] Current Outpatient Medications on File Prior to Visit Medication Sig Dispense Refill albuterol (2.5 MG/3ML) 0.083% nebulizer solution inhale 3 milliliter by nebulization route every 4-6 hours as needed for SOB, wheezing 75 mL 2 albuterol (ProAir HFA) 108 (90 Base) MCG/ACT inhaler Inhale 2 puffs every 4 (four) hours if needed for wheezing or shortness of breath. 18 g 2 atorvastatin (Lipitor) 40 MG tablet TAKE 1 TABLET BY MOUTH AT BEDTIME 90 tablet 1 Blood Pressure Monitor kit 1 each 2 times daily. 1 kit 0 Diclofenac Sodium 1 % gel APPLY 2 GRAMS TOPICALLY TO AFFECTED AREA(S) 4 TIMES A DAY IN THE MORNING,AT NOON, IN THE EVENING, AND AT BEDTIME NEEDED FOR PAIN 100 g 2 diphenhydrAMINE (BENADryl) 25 MG tablet Take 1 tablet (25 mg) by mouth if needed at bedtime for itching. 30 tablet 0 EPINEPHrine (Epipen) 0.3 MG/0.3ML injection syringe INJECT 0.3 ML INTRAMUSCULARLY ONCE NEEDED FOR ANAPHYLAXIS 1 each 0 escitalopram (Lexapro) 10 MG tablet TAKE 1 TABLET BY MOUTH ONCE DAILY 30 tablet 3 fluticasone (Flonase) 50 MCG/ACT nasal spray INSTILL 1 SPRAY IN EACH NOSTRIL ONCE DAILY IN THE MORNING 48 g 0 fluticasone (Flovent HFA) 220 MCG/ACT inhaler inhale 1 puff by inhalation route 2 times every day 36 g 1 gabapentin (Neurontin) 400 MG capsule TAKE 1 CAPSULE BY MOUTH FOUR TIMES DAILY 120 capsule 5 levothyroxine (Synthroid, Levoxyl) 137 MCG tablet TAKE 1 TABLET BY MOUTH EVERY MORNING BEFORE BREAKFAST 90 tablet 1 lidocaine (Lidoderm) 5 % patch Apply 1 patch topically Once per day. Remove & discard patch within 12 hours or as directed by MD. 30 patch 1 lisinopril-hydroCHLOROthiazide 10-12.5 MG tablet TAKE 1 TABLET BY MOUTH EVERY MORNING 90 tablet 1 melatonin 5 MG tablet TAKE 2 TABLETS BY MOUTH EVERY DAY AT BEDTIME 60 tablet 5 Mometasone Furoate (Asmanex HFA) 200 MCG/ACT aerosol INHALE 1 PUFF BY MOUTH TWICE DAILY. RINSE MOUTH AFTER USING 30 g 5 montelukast (Singulair) 10 MG tablet TAKE 1 TABLET BY MOUTH EVERY MORNING 90 tablet 1 Multiple Vitamin (Multivitamin) tablet TAKE 1 TABLET BY MOUTH EVERY EVENING WITH FOOD 90 tablet 1 nicotine (Nicoderm CQ) 14 MG/24HR patch Place 1 patch on the skin 1 (one) time each day at the sametime. 30 patch 0 omega-3 (Fish Oil) 1000 MG capsule TAKE 1 CAPSULE BY MOUTH TWICE DAILY IN THE MORNING AND IN THE EVENING 180 capsule 0 omeprazole (PriLOSEC) [address] capsule Take 1 capsule (20 mg) by mouth before breakfast. 90 capsule2 Respiratory Therapy Supplies (Nebulizer/Tubing/Mouthpiece) kit 1 Units 1 (one) time if needed (as needed) for up to 1 dose. 1 kit 0 tadalafil (Cialis) 5 MG tablet Take 1 tablet (5 mg) by mouth if needed at bedtime for erectile dysfunction. 10 tablet 0 [DISCONTINUED] azithromycin (Zithromax Z-Immanuel) 250 MG tablet Take 2 tabs po x 1 day then 1 tab dailyx 4 days 6 tablet 0 No current facility-administered medications on file prior to visit. documented in this encounter Plan of Treatment Upcoming Encounters Date Type Department Care Team (Late st Contact Info) Description 11/14/2024 2:00 PM EDT Office Visit [facility] [address] [facility], [place] [phone] Abel Klein MD [address] [facility] [place] [phone] 02/12/2025 2:30 PM EST Office Visit [facility] OPT[facility]RY [address] [place], [place] [phone] Candice Edwards OD [address] [place], [place] [phone] documented as of this encounter Procedures Procedure Name Priority Date/Time Associated Diagnosis Comments ECG 12-LEAD Routine 10/20/2024 4:50 PM EDT Pre-op examination CBC WITH AUTO DIFFERENTIAL Routine 10/20/2024 3:50 PM EDT Pre-op examination BASIC METABOLIC PANEL Routine 10/20/2024 3:50 PM EDT Pre-op examination documented in this encounter Results * ECG 12 lead (10/20/2024 4:50 PM EDT) Narrative Lauryn Molina NP - 10/20/2024 4:50 PM EDT HR 56 bpm, normal axis, interval, morphology. Sinus zahra ECG Lauryn Molina NP ECG ORDERABLES Final Result * Basic Metabolic Panel (10/20/2024 3:50 PM EDT) Sodium 143 135 - 145 mmol/L [facility] Potassium 4.8 3.3 - 5.1 mmol/L [facility] Chloride 106 96 - 108 mmol/L [facility] Carbon Dioxide 29 22 - 29 mmol/L [facility] Anion Gap 13 12 - 20 [facility] Urea Nitrogen (BUN) 13 9 - 16 mg/dL [facility] Creatinine, Serum 1.22 0.5 - 1.4 mg/dL [facility] Estimated Glomerular Filt Rate 60 [facility] Comment:Chronic Kidney Disea se: Estimated GFR < 60 mL/min/1.92y6Vrigwp Kidney Disease: Estimated GFR < 15 mL/min/1.73m2 Glucose 86 60 - 115 mg/dL [facility] Calcium 9.7 8.4 - 10.2 mg/dL [facility] Blood Venous blood specimen / Unknown 10/20/2024 3:50 PM EDT 10/20/2024 5:25 PM EDT Lauryn Molina MATERIALS SPECIALIST LAB BLOOD ORDERABLES Final Resu lt [facility] [address] [place] [address] [phone] * (ABNORMAL) CBC auto differential (10/20/2024 3:50 PM EDT) White Blood Count 9.6 4.8 - 10.8 X10*3/uL [facility] Red Blood Count 4.05(L) 4.60 - 5.80 X10*6/uL [facility] Hemoglobin 12.6(L) 14.0 - 18.0 g/dl [facility] Hematocrit 37.5(L) 42.0 - 52.0 % [facility] Mean Corpuscular Volume 92.6 80.0 - 98.0 fL [facility] Mean Corpuscular Hemoglobin 31.1 27.0 - 33.0 pg [facility] Mean Corpuscular HGB Conc 33.6 31.0 - 36.0 g/dl [facility] Red Cell Distribution Width 12.3 11.0 - 16.0 % [facility] Platelet Count 328 160 - 400 X10*3/uL [facility] Mean Platelet Volume 9.2(L) 9.4 - 12.4 fL [facility] Neutrophils Percent Auto 51.0 45 - 73 % [facility] Imm Gran Pct Auto 0.3 0.0 - 0.4 % [facility] Lymphocytes Percent Auto 37.5 20 - 40 % [facility] Monocytes Percent Auto 7.2 2 - 11 % [facility] Eosinophils Percent Auto 3.2 0 - 4 % [facility] Basophils Percent Auto 0.8 0 - 2 % [facility] NRBC Pct Auto 0.0 0.0 - 0.2 /100WBC [facility] Neutrophils Absolute Auto 4.9 2.0 - 8.3 x10*3/uL [facility] Imm Gran Abs Auto 0.03 0.00 - 0.03 X10*3/uL [facility] Lymphocytes Absolute Auto 3.6 1.2 - 4.9 X10*3/uL [facility] Monocytes Absolute Auto 0.7 0.1 - 1.2 X10*3/uL [facility] Eosinophils Absolute Auto 0.3 0.0 - 0.4 X10*3/uL [facility] Basophils Absolute Auto 0.1 0.0 - 0.2 X10*3/uL [facility] NRBC Abs Auto 0.000 0.0 - 0.012 X10*3/uL [facility] Blood Venous blood specimen / Unknown 10/20/2024 3:50 PM EDT 10/20/2024 5:25 PM EDT us Lauryn Molina NP LAB BLOOD ORDERABLES Final Resu lt [facility] [address] [place] [address] [phone] documented in this encounter Visit Diagnoses Diagnosis Pre-op examination- Primary Bilateral leg numbness Disturbance of skin sensation documented in this encounter Additional Health Concerns Assessment Noted Time PHQ-9 Depression Total Score: 20 025 1:53 PM EDT documented as of this encounter Care Teams Broadcasting Equipment Mechanic Relationship Specialty Start Date End Date Abel Klein MD [address] [place] [address] PCP - General Internal Medicine 10/12/13 documented as of this encounter
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
[2024-10-24 14:58] VITALS: BP 124/67; PULSE 76; RESP 18; TEMP 36.4; O2SAT 98; BMI 25.2
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
[2024-10-24 16:14] VITALS: BP 108/59; PULSE 52; RESP 17; TEMP 36.6; O2SAT 96
--- NOTE | 2024-10-24 16:18 | PC.NURSE ---
pt refused tylenol administration prior to d/c.
[2024-10-24 16:20] VITALS: BP 108/59; PULSE 52; RESP 17; TEMP 36.6; O2SAT 96
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
--- OUTSIDE RECORDS SUMMARY | 2024-10-24 16:41 | XMS_ITS | Encounter Summary ---
Author Organization [employer] Address [address] [facility] [address] [place] [address] Care Team Providers Care Machine Stamper Name Role Phone Abel Klein MD Primary Care Provide r Encounter Details Date Type Department Care Team (Late st Contact Info) Description 03/10/2022 Orders Only [facility] [address] [place] [address] Susy Ellington LPN Social History Tobacco Use [...] Description 11/14/2024 2:00 PM EDT Office Visit [facility] [address] [place] [address] Abel Klein MD [address] [place] [address] 02/12/2025 2:30 PM EST Office Visit [facility] [address] [place] [address] Candice Edwards, OD [address] [place] [address] documented as of this encounter Visit Diagnoses Not on filedocumented in this encounter Care Teams Machine Stamper Relationship Specialty Start Date End Date Abel Klein MD [address] [place] [address] PCP - General Internal Medicine 10/12/13 documented as of this encounter
--- OUTSIDE RECORDS SUMMARY | 2024-10-24 16:41 | XMS_ITS | Clinical Summary ---
Author Organization [facility] Address 175 [place] [address] Phone Care Team Providers Care Telegraph Printer Mechanic Name Role Phone Abel Looney MD Primary [...] Active Immunizations Name Administration Dates Next Due [facility] SARS-CoV-2 COVID-19, mRNA, LNP-S, preservative free [...] PM EDT Office Visit Orthopedic Surgery - [place] [address] [facility] [address] [place] [phone] Jesse Wei, DPM [address] [facility] [address] [place] [address] Health Maintenance Due Date Last Done Comments [...] 01/25/2022 Social Influencers of Health Screening 01/25/2022 Depression Screening 02/23/2024 Hypertension/CHF/CAD Annual BMP Blood Test 03/22/2024 DTaP,Tdap,and Td Vaccines (3 - Td or Tdap) 06/05/2024 06/05/2014, 10/31/1999 COVID-19 Vaccine ( season) 2024 12/25/2022, 10/06/2021, 03/12/2021, Additional history [...] topic Insurance MEDICAID - [place] Care Teams Telegraph Printer Mechanic Relationship Specialty Start Date End Date Abel Looney MD [address] [place] [address] [place] [address] PCP - General Internal Medicine 01/11/18
--- OUTSIDE RECORDS SUMMARY | 2024-10-24 16:41 | XMS_ITS | Encounter Summary ---
Author Organization [employer] Address [address] [facility] [address] 7[address] [place] [address] Care Team Providers Care Convict Guard Name Role Phone Abel Klein MD Primary Care Provide r Reason for Visit * Reason Onset Date Comments CHARTPREP 10/19/2024 Encounter Details Date Type Department Care Team ([facility] st Contact Info) Description 10/19/2024 Telephone [facility] MEDICINE [address] [place], [place] [phone] Shante Tolliver [place] CHARTPREP Social History Tobacco [...] Upcoming Encounters Date Type Department Care Team ([facility] st Contact Info) Description 11/14/2024 2:00 PM EDT Office Visit [facility]INE 230 [place] [address] Abel Klein MD 230 [place] [address] 02/12/2025 2:30 PM EST Office Visit [facility] OPTOMETRY [address] [place] [address] Candice Edwards, OD 267 [place] [address] documented as of this encounter Visit Diagnoses Not on filedocumented in this encounter Additional Health Concerns Assessment Noted Time PHQ-9 Depression Total Score: 20 025 1:53 PM EDT documented as of this encounter Care Teams Convict Guard Relationship Specialty Start Date End Date Abel Klein MD 230 [place] [address] PCP - General Internal Medicine 10/12/13 documented as of this encounter
--- OUTSIDE RECORDS SUMMARY | 2024-10-24 16:41 | XMS_ITS | Encounter Summary ---
Author Organization [employer] Address [address] [facility] 7t [place] [address] Care Team Providers Care Logistics Tech Name Role Phone Abel Klein MD Primary Care Provide r Reason for Visit * Reason Onset Date Comments call back requested 11/09/2022 Encounter Details Date Type Department Care Team (Late Contact Info) Description 11/09/2022 Telephone [facility] MEDICINE [address] [place] [phone] Abel Klein MD [address] [place] [address] call back requested Social History Tobacco Use [...] Upcoming Encounters Date Type Department Care Team ([facility] Contact Info) Description 11/14/2024 2:00 PM EDT Office Visit [facility] MED[facility]INE [address] [place] [phone] Abel Klein MD 230 [place] [address] 02/12/2025 2:30 PM EST Office Visit [facility] OPTOMETRY [address] [place], [place] [phone] Candice Edwards, OD 267 [place], [place] [phone] documented as of this encounter Visit Diagnoses Not on filedocumented in this encounter Additional Health Concerns Assessment Noted Time PHQ-9 Depression Total Score: 12 023 2:47 PM EDT documented as of this encounter Care Teams Logistics Tech Relationship Specialty Start Date End Date Abel Klein MD 230 [place] [address] PCP - General Internal Medicine 10/12/13 documented as of this encounter
--- OUTSIDE RECORDS SUMMARY | 2024-10-24 16:41 | XMS_ITS | Encounter Summary ---
Author Organization [employer] Address [address] 7[address] [place] [address] Care Team Providers Care Data Power Consultant Name Role Phone Abel Klein MD Primary Care Provide r Reason for Visit * Reason Comments Med Refill Encounter Details Date Type Department Care Team ([facility] st Contact Info) Description 08/20/2024 Refill [facility] [address] [place], [place] [phone] Abel Klein MD 230 [place] [address] Social History Tobacco Use Types Packs/Day Years [...] Description 11/14/2024 2:00 PM EDT Office Visit [facility] 230 [place] [address] Abel Klein MD 230 [place] [address] 02/12/2025 2:30 PM EST Office Visit [facility] OPTOMETRY 267 [place] [address] TarCandice rodriguez, OD 267 [place] [address] documented as of this encounter Visit Diagnoses Not on filedocumented in this encounter Additional Health Concerns Assessment Noted Time PHQ-9 Depression Total Score: 20 025 1:53 PM EDT documented as of this encounter Care Teams Data Power Consultant Relationship Specialty Start Date End Date Abel Klein MD 230 [place] [address] PCP - General Internal Medicine 10/12/13 documented as of this encounter
--- OUTSIDE RECORDS SUMMARY | 2024-10-24 16:41 | XMS_ITS | Encounter Summary ---
Author Organization [employer] Address [address] 7t [place] [address] Care Team Providers Care Battery Plate Remover Name Role Phone Abel Klein MD Primary Care Provide r Reason for Visit * Reason Onset Date Comments Nurse Triage 07/10/2024 Encounter Details Date Type Department Care Team ([facility] st Contact Info) Description 07/10/2024 Telephone [facility] MED[facility]INE 230 [place], [place] [phone] Abel Klein MD 230 [place] [address] Nurse Triage Social History Tobacco Use Types [...] left shoulder/arm pain. Pt was seen in [facility] 06/22/24 for this concern. Pt was prescribed tylenol, tramadol and diclofenac sodium but, nothing is helping the pain . Pt reports unable to lift up arm and moving the arm causes much pain. Pt doesn't work and reports being disabled. Pt also reports , my son was murdered in [facility] and I have to go to the courthouse tomorrow. . Pt is advised to continue with instruction given in [facility] visit . ASK apt with Dr. Lara/20/25 [...] Description 11/14/2024 2:00 PM EDT Office Visit [facility] MED[facility]INE 230 [place] [address] Abel Klein MD 230 [place] [address] 02/12/2025 2:30 PM EST Office Visit [facility] OPTOMETRY [address] [place] [address] Candice Edwards, MALINI 267 [place] [address] documented as of this encounter Visit Diagnoses Not on filedocumented in this encounter Additional Health Concerns Assessment Noted Time PHQ-9 Depression Total Score: 27 024 10:53 AM EDT documented as of this encounter Care Teams Battery Plate Remover Relationship Specialty Start Date End Date Abel Klein MD 230 [place] [address] PCP - General Internal Medicine 10/12/13 documented as of this encounter
--- OUTSIDE RECORDS SUMMARY | 2024-10-24 16:41 | XMS_ITS | Encounter Summary ---
Author Organization [employer] Address [address] [facility] [address] 7[address] [place] [address] Care Team Providers Care Health Center Manager Name Role Phone Abel Klein MD Primary [...] Description 11/14/2024 2:00 PM EDT Office Visit [facility] 230 [place], [place] [phone] Abel Klein MD 230 [place], [place] [phone] 02/12/2025 2:30 PM EST Office Visit [facility] OPTOMET[facility] [address] [place], [place] [phone] Candice Edwards, OD [address] [place], [place] [phone] documented as of this encounter Visit Diagnoses Not on filedocumented in this encounter Additional Health Concerns Assessment Noted Time PHQ-9 Depression Total Score: 20 025 1:53 PM EDT documented as of this encounter Care Teams Health Center Manager Relationship Specialty Start Date End Date Abel Klein MD 230 [place], [place] [phone] PCP - General Internal Medicine 10/12/13 documented as of this encounter
--- OUTSIDE RECORDS SUMMARY | 2024-10-24 16:41 | XMS_ITS | Encounter Summary ---
Author Organization [employer] Address [address] [facility] [address] 7t [place] [address] Care Team Providers Care Med Peds Name Role Phone Abel Klein MD Primary Care Provide r Reason for Visit * Reason Onset Date Comments Results 10/24/2024 Encounter Details Date Type Department Care Team ([facility] st Contact Info) Description 10/24/2024 Results [facility] 230 [place] [address] Lauryn Molina NP 230 [place] [address] CBC auto differential, Basic Metabolic Panel Social History Tobacco Use Types Packs/Day Years [...] the past 12 months, has t he [employer], gas, oil or water [employer] threatened to shut off services in your [...] encounter Miscellaneous Notes * Telephone Encounter - Anna Becker RN - 10/24/2024 1:25 PM EDT TC placed to pt to inform and advise of below provider message. No answer, LVM to call office back and ask to speak to the blue team nurses. ----- Message from Lauryn Molina sent at 10/24/2024 1:08 PM EDT ----- Please inform patient of normal BMP and anemia consistent with previous labs. Advise increasing iron rich foods. Supplementation sent to pharmacy on file; can be started after his procedure. Thanks ----- Message ----- From: Interface, Lab Results In Sent: 10/20/2024 5:36 PM EDT To: Lauryn Molina NP documented in this encounter Plan of Treatment Upcoming Encounters Date Type Department Care Team (Late st Contact Info) Description 11/14/2024 2:00 PM EDT Office Visit [facility] 230 [place] [address] Abel Klein MD 230 [place] [address] 02/12/2025 2:30 PM EST Office Visit [facility] OPTOMETRY 267 [place], [place] [phone] TarCandice rodriguez, OD 267 [place] [address] documented as of this encounter Visit Diagnoses Not on filedocumented in this encounter Additional Health Concerns Assessment Noted Time PHQ-9 Depression Total Score: 20 025 1:53 PM EDT documented as of this encounter Care Teams Med Peds Relationship Specialty Start Date End Date Abel Klein MD 230 [place] [address] PCP - General Internal Medicine 10/12/13 documented as of this encounter
--- OUTSIDE RECORDS SUMMARY | 2024-10-24 16:41 | XMS_ITS | Encounter Summary ---
Author Organization [employer] Address [address] [facility] [address] [place] [address] Care Team Providers Care Director Of Search Engine Marketing Name Role Phone Abel Klein MD Primary Care Provide r Encounter Details Date Type Department Care Team (Late st Contact Info) Description 05/08/2022 Orders Only [facility] [address] [place] [address] Miya Stovall LPN Social History Tobacco Use [...] 11/14/2024 2:00 PM EDT Office Visit [facility] 230 [place] [address] Abel Klein MD 230 [place] [address] 02/12/2025 2:30 PM EST Office Visit [facility] OPTOMETRY 267 [place] [address] Candice Edwards, OD 267 [place] [address] documented as of this encounter Visit Diagnoses Not on filedocumented in this encounter Care Teams Director Of Search Engine Marketing Relationship Specialty Start Date End Date Abel Klein MD [address] [place] [address] PCP - General Internal Medicine 10/12/13 documented as of this encounter
--- OUTSIDE RECORDS SUMMARY | 2024-10-24 16:41 | XMS_ITS | Encounter Summary ---
Author Organization [employer] Address [address] [facility] [address] 7t [place] [address] Care Team Providers Care Centrifugal Casting Machine Operator Name Role Phone Abel Klein MD Primary Care Provide r Encounter Details Date Type Department Care Team (Late st Contact Info) Description 08/09/2024 Telephone [facility] MEDICINE 230 [place], [place] [phone] Abel Klein MD 230 [place], [place] [phone] Social History Tobacco Use Types Packs/Day Years [...] 11/14/2024 2:00 PM EDT Office Visit [facility] MED[facility]INE 230 [place] [address] Abel Klein MD [address] [place] [address] 02/12/2025 2:30 PM EST Office Visit [facility] OPTOMETRY [address] [place] [address] TarCandice rodriguez, OD [address] [place] [address] documented as of this encounter Visit Diagnoses Not on filedocumented in this encounter Additional Health Concerns Assessment Noted Time PHQ-9 Depression Total Score: 20 025 1:53 PM EDT documented as of this encounter Care Teams Centrifugal Casting Machine Operator Relationship Specialty Start Date End Date Abel Klein MD [address] [place] [address] PCP - General Internal Medicine 10/12/13 documented as of this encounter
--- OUTSIDE RECORDS SUMMARY | 2024-10-24 16:41 | XMS_ITS | Clinical Summary ---
Author Organization [facility] Address [address] [place] [address] [place] [address] Phone Care Team Providers Care Wood Heel Finisher Name Role Phone Abel Looney MD Primary [...] 01/03/1996 ZOSTER VACCINES (1 of 2) 2010 Adult Td,Tdap Booster 06/05/2024 06/05/2014 INFLUENZA VACCINE (#1) 2024 COVID-19 VACCINE (2 - 2024-2 6 season) 2024 06/24/2020 RSV VACCINE (1 - 1-dose 75+ series) [...] Devices Not on file [place] [address] [place] [address] [place] [place] [address] [facility] [address] [place] [address] [place] [address] [facility] [address] [facility] [address] [facility] [address] [facility] C3 ACO Care Teams Wood Heel Finisher Relationship Specialty Start Date End Date Abel Looney MD [address] [place] [address] [address] JOLENE Simms [phone] [email or web address] PCP - General Internal Medicine 10/05/23 Additional Source Comments The information contained in this document represents components of the legal health record. It is not the complete legal health record.[facility]
--- OUTSIDE RECORDS SUMMARY | 2024-10-24 16:41 | XMS_ITS | Encounter Summary ---
Author Organization [facility] Address [address] [facility] [address] [place] [address] Phone Care Team Providers Care Crew Truck Driver Name Role Phone Unknown, Unknown Primary Care Provider Pia walker Pcp, Unknown Primary Care Provider Abel Shi MD Primary Care Provide r Encounter Details Date Type Department Care Team (Late st Contact Info) Description 12/16/2017 Ancillary Orders [facility] [address] [place] [address] Fabricio Fairbanks, DO [address] [place] [address] Bradycardia Social History Tobacco Use Types Packs/Day [...] dysrhythmias documented in this encounter Care Teams Crew Truck Driver Relationship Specialty Start Date End Date Unknown, Unknown, PCP - General 12/16/17 08/24/23 Pcp, Unknown PCP - General 08/25/23 10/04/23 Abel Looney MD [address] [place] [address] [address] [place] [address] [email or web address] PCP - General Internal Medicine 10/05/23 documented as of this encounter Additional Source Comments The information contained in this document represents components of the legal health record. It is not the complete legal health record.[facility]
--- OUTSIDE RECORDS SUMMARY | 2024-10-24 16:41 | XMS_ITS | Encounter Summary ---
Author Organization [employer] Address [address] 7t [place] [address] Care Team Providers Care Director Drug Name Role Phone Abel Klein MD Primary Care Provide r Encounter Details Date Type Department Care Team (Late st Contact Info) Description 10/24/2024 Orders Only [facility] External Provider, [facility] Social History Tobacco Use Types Packs/Day Years [...] your housing situation today? I have lizett sing 07/11/[address] you li [...] Description 11/14/2024 2:00 PM EDT Office Visit [facility] MEDICINE 230 [place] [address] Abel Klein MD [address] [place] [address] 02/12/2025 2:30 PM EST Office Visit [facility] OPTOMETRY 267 [place] [address] Candice Edwards, OD [address] [place] [address] documented as of this encounter Procedures Procedure Name Priority Date/Time Associated Diagnosis Comments CT HEAD WO CONTRAST Routine 10/24/2024 2 :14 PM EDT documented in this encounter Results * CT Head w/o Contrast (10/24/2024 2:14 PM EDT) Anatomical Region Laterality Modality Head, Neck Computed Tomogra phy 10/24/2024 2:14 PM EDT Narrative 10/24/2024 3:35 PM EDT [address] [address] [address] Scan Report Signed Patient: Den Garcia MR#: [id number] : 1960 Acct:[id number] Age/Sex: 64 / M ADM Date: 10/24/24 Loc: HO.ED Attending Dr: Ordering Physician: Lizzie León Date of Service: 10/24/24 Procedure(s): CT head/brain wo IV con Accession Number(s): [id number] cc: Abel Looney MD; Lizzie León Report Number: [id number]: Total DLP = 758.00 mGy-cm Reason for [...] Martir Jason MD 10/24/2024 03:33 PM EDT Dictated By: Martir Jason MD Signed By: <Electronically signed by Martir Jason MD in OV> 10/24/24 1533 DD/ 1414 TD/TT: 10/24/24 1520 Manager Neonatal: Procedure Note Donotuseinterpreter, Image - 10/24/[address] [address] [address] Scan Report Signed Patient: Den GarciaMR#: [id number] : 1Acct:[id number] Age/Sex: 64 / MADM Date: 10/24/24 Loc: HO.ED Attending Dr: Ordering Physician: Lizzie León Date of Service: 10/24/24 Procedure(s): CT head/brain wo IV con Accession Number(s): [id number] cc: Abel Looney MD; Lizzie León Report Number: [id number]: Total DLP = 758.00 mGy-cm Reason for [...] Martir Jason MD 10/24/2024 03:33 PM EDT Dictated By: Maritr Jason MD Signed By: <Electronically signed by Mratir Jason MD in OV> 10/24/24 1533 DD/ 1414 TD/TT: 10/24/24 1520 Manager Neonatal: [facility] External Provider IMG CT PROCEDURES Final Result documented in this encounter Visit Diagnoses Not on filedocumented in this encounter Additional Health Concerns Assessment Noted Time PHQ-9 Depression Total Score: 20 025 1:53 PM EDT documented as of this encounter Care Teams Director Drug Relationship Specialty Start Date End Date Abel Klein MD [address] [place] [address] PCP - General Internal Medicine 10/12/13 documented as of this encounter
--- OUTSIDE RECORDS SUMMARY | 2024-10-24 16:41 | XMS_ITS | Encounter Summary ---
Author Organization [employer] Address [address] 7[address] [place] [address] Care Team Providers Care Aircraft Log Clerk Name Role Phone Abel Klein MD Primary Care Provide r Encounter Details Date Type Department Care Team (Late st Contact Info) Description 04/02/2022 Orders Only [facility] [address] [place] [address] Miya Stovall LPN Social History Tobacco Use [...] Description 11/14/2024 2:00 PM EDT Office Visit [facility] MEDICINE 230 [place] [address] Abel Klein MD 230 [place] [address] 02/12/2025 2:30 PM EST Office Visit [facility] OPTOMETRY [address] [place] [address] Candice Edwards, OD [address] [place] [address] documented as of this encounter Visit Diagnoses Not on filedocumented in this encounter Care Teams Aircraft Log Clerk Relationship Specialty Start Date End Date Abel Klein MD [address] [place] [address] PCP - General Internal Medicine 10/12/13 documented as of this encounter
== END 2024-10-24 16:20 | disposition home or self-care (01) ==
PROVIDERS: Emergency Provider Emergency Medicine; PCP Internal Medicine
DX: S00.93XA Contusion of unspecified part of head, initial encounter (principal); V43.52XA Car driver injured in collision with other type car in traffic accident, initial encounter; Y93.9 Activity, unspecified; Y92.9 Unspecified place or not applicable; Y99.9 Unspecified external cause status; R51.9 Headache, unspecified
CPT/HCPCS: 70450; 99284

== ENCOUNTER → 2024-10-24 15:02 | Outpatient (BNV) | payer OTHER, SELFPAY | PROVIDERS: Emergency Provider Emergency Medicine; PCP Internal Medicine; Visit Provider Radiology Diagnostic Radiology | DX: S09.90XA Unspecified injury of head, initial encounter (principal); V89.2XXA Person injured in unspecified motor-vehicle accident, traffic, initial encounter | CPT/HCPCS: 70450 ==

== ENCOUNTER 2024-10-26 15:09 | Outpatient (AMB) | payer MEDICAID, SELFPAY ==
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
[2024-10-26 15:15] VITALS: BP 108/59; PULSE 60; BMI 26.5
--- OUTSIDE RECORDS SUMMARY | 2024-10-26 16:12 | XMS_ITS | Encounter Summary ---
Author Organization [employer] Address [address] [place] [address] Care Team Providers Care Cyber Special Agent Name Role Phone Abel Klein MD Primary Care Provide r Encounter Details Date Type Department Care Team (Late st Contact Info) Description 10/24/2024 Orders Only [facility] External Provider, [facility] Social History Tobacco Use Types Packs/Day Years [...] Office Visit [facility] MEDICINE [address] [place] [address] Abel Klein MD [address] [place] [address] 02/12/2025 2:30 PM EST Office Visit [facility] OPTOMETRY [address] [place] [address] Candice Edwards, OD [address] [place] [address] documented as of this encounter Procedures Procedure Name Priority Date/Time Associated Diagnosis Comments CT HEAD WO CONTRAST Routine 10/24/2024 2 :14 PM EDT documented in this encounter Results * CT Head w/o Contrast (10/24/2024 2:14 PM EDT) Anatomical Region Laterality Modality Head, Neck Computed Tomogra phy 10/24/2024 2:14 PM EDT Narrative 10/24/2024 3:35 PM EDT [address] [address] [address] Scan Report Signed Patient: Den Garcia MR#: [id number] : 1960 Acct:[id number] Age/Sex: 64 / M ADM Date: 10/24/24 Loc: HO.ED Attending Dr: Ordering Physician: Lizzie León Date of Service: 10/24/24 Procedure(s): CT head/brain wo IV con Accession Number(s): [id number] cc: Abel Looney MD; Lizzie León Report Number: [id number]: Total DLP = 758.00 mGy-cm Reason for [...] 10/24/24 1533 DD/ 1414 TD/TT: 10/24/24 1520 Production Checker: Procedure Note Donotuseinterpreter, Image - 10/24/[address] [address] [address] Scan Report Signed Patient: Den GarciaMR#: [id number] : 1Acct:[id number] Age/Sex: 64 / MADM Date: 10/24/24 Loc: HO.ED Attending Dr: Ordering Physician: Lizzie León Date of Service: 10/24/24 Procedure(s): CT head/brain wo IV con Accession Number(s): [id number] cc: Abel Looney MD; Lizzie León Report Number: [id number]: Total DLP = 758.00 mGy-cm Reason for [...] 10/24/24 1533 DD/ 1414 TD/TT: 10/24/24 1520 Production Checker: [facility] External Provider IMG CT PROCEDURES Final Result documented in this encounter Visit Diagnoses Not on filedocumented in this encounter Additional Health Concerns Assessment Noted Time PHQ-9 Depression Total Score: 20 025 1:53 PM EDT documented as of this encounter Care Teams Cyber Special Agent Relationship Specialty Start Date End Date Abel Klein MD [address] [place] [address] PCP - General Internal Medicine 10/12/13 documented as of this encounter
--- OUTSIDE RECORDS SUMMARY | 2024-10-26 16:12 | XMS_ITS | Encounter Summary ---
Author Organization [facility] Address [address] [place] [address] Phone Care Team Providers Care Plate Glass Grinder Name Role Phone Unknown, Unknown Primary Care Provider Pia walker Pcp, Unknown Primary Care Provider Abel Shi MD Primary Care Provide r Encounter Details Date Type Department Care Team (Late st Contact Info) Description 12/16/2017 Ancillary Orders [facility] [address] [place] [phone] Fabricio Fairbanks, DO [address] [place] [address] Bradycardia Social History Tobacco Use Types Packs/Day [...] dysrhythmias documented in this encounter Care Teams Plate Glass Grinder Relationship Specialty Start Date End Date Unknown, Unknown, PCP - General 12/16/17 08/24/23 Pcp, Unknown PCP - General 08/25/23 10/04/23 Abel Looney MD [address] [place] [address] [address] [place] [address] [email or web address] PCP - General Internal Medicine 10/05/23 documented as of this encounter Additional Source Comments The information contained in this document represents components of the legal health record. It is not the complete legal health record.[facility]
--- OUTSIDE RECORDS SUMMARY | 2024-10-26 16:12 | XMS_ITS | Encounter Summary ---
Author Organization [employer] Address [address] [facility] [address] 7t [place] [address] Care Team Providers Care Colorectal Surgeon Name Role Phone Abel Klein MD Primary Care Provide r Reason for Visit * Reason Onset Date Comments call back requested 11/09/2022 Encounter Details Date Type Department Care Team ([facility] Contact Info) Description 11/09/2022 Telephone [facility] MEDICINE [address] [place] [phone] Abel Klein MD [address] [place] [phone] call back requested Social History Tobacco Use [...] Upcoming Encounters Date Type Department Care Team ([facility] Contact Info) Description 11/14/2024 2:00 PM EDT Office Visit [facility] MEDICINE [address] [place] [address] [phone] Able Klein MD [address] [place] [address] 02/12/2025 2:30 PM EST Office Visit [facility] OPTOMETRY [address] [place], [place] [phone] Candice Edwards, OD [address] [place], [place] [phone] documented as of this encounter Visit Diagnoses Not on filedocumented in this encounter Additional Health Concerns Assessment Noted Time PHQ-9 Depression Total Score: 12 023 2:47 PM EDT documented as of this encounter Care Teams Colorectal Surgeon Relationship Specialty Start Date End Date Abel Klein MD [address] [place] [address] PCP - General Internal Medicine 10/12/13 documented as of this encounter
--- OUTSIDE RECORDS SUMMARY | 2024-10-26 16:12 | XMS_ITS | Clinical Summary ---
Author Organization [facility] Address [address] [place] [address] [place] [address] Phone Care Team Providers Care Spearer Name Role Phone Abel Looney MD Primary [...] topic Medical Devices Not on [place] [address] [place] [address] [place] [address] [place] [address] [employer] [facility] [address] [place] [address] [place] [address] [employer] [facility] [employer] [employer] Care Teams Spearer Relationship Specialty Start Date End Date Abel Looney MD [address] [place] [address] [address] [place] Simms [phone] [email or web address] PCP - General Internal Medicine 10/05/23 Additional Source Comments The information contained in this document represents components of the legal health record. It is not the complete legal health record.[facility]
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
--- OUTSIDE RECORDS SUMMARY | 2024-10-26 16:12 | XMS_ITS | Encounter Summary ---
Author Organization [employer] Address [address] [place] [address] Care Team Providers Care Quarry Equipment Operator Name Role Phone Abel Klein MD Primary Care Provide r Reason for Visit * Reason Onset Date Comments Results 10/24/2024 Encounter Details Date Type Department Care Team ([facility] st Contact Info) Description 10/24/2024 Results Follow-Up [facility] MEDICINE [address] [place] [address] Lauryn Molina NP [address] [place] [address] CBC auto differential, Basic Metabolic Panel Social [...] the past 12 months, has t he [employer], gas, oil or water [facility] threatened to shut off services in your [...] Description 11/14/2024 2:00 PM EDT Office Visit [facility] MED[facility] [address] [place] [address] Abel Klein MD [address] [place] [address] 02/12/2025 2:30 PM EST Office Visit [facility] OPTOMETRY [address] [place], [place] [phone] TarCandice rodriguez, OD [address] [place] [address] documented as of this encounter Visit Diagnoses Not on filedocumented in this encounter Additional Health Concerns Assessment Noted Time PHQ-9 Depression Total Score: 20 025 1:53 PM EDT documented as of this encounter Care Teams Quarry Equipment Operator Relationship Specialty Start Date End Date Abel Klein MD [address] [place] [address] PCP - General Internal Medicine 10/12/13 documented as of this encounter
--- OUTSIDE RECORDS SUMMARY | 2024-10-26 16:12 | XMS_ITS | Encounter Summary ---
Author Organization [employer] Address [address] [place] [address] Care Team Providers Care Clinical Program Coordinator Name Role Phone Abel Klein MD Primary Care Provide r Encounter Details Date Type Department Care Team (Late st Contact Info) Description 05/08/2022 Orders Only [facility] [address] [place] [address] Miya Stovall LPN Social History Tobacco Use [...] Description 11/14/2024 2:00 PM EDT Office Visit [facility] MEDICINE [address] [place] [address] Abel Klein MD [address] [place] [address] 02/12/2025 2:30 PM EST Office Visit [facility] OPTOMETRY [address] [place] [address] Candice Edwards, OD [address] [place] [address] documented as of this encounter Visit Diagnoses Not on filedocumented in this encounter Care Teams Clinical Program Coordinator Relationship Specialty Start Date End Date Abel Klein MD [address] [place] [address] PCP - General Internal Medicine 10/12/13 documented as of this encounter
--- OUTSIDE RECORDS SUMMARY | 2024-10-26 16:13 | XMS_ITS | Encounter Summary ---
Author Organization [employer] Address [address] [place] [address] Care Team Providers Care Records Management Associate Name Role Phone Abel Klein MD Primary Care Provide r Reason for Visit * Reason Comments Med Refill Encounter Details Date Type Department Care Team ([facility] st Contact Info) Description 08/20/2024 Refill [facility] [address] [place], [place] [phone] Abel Klein MD [address] [place], [place] [phone] Social History Tobacco Use Types Packs/Day Years [...] Description 11/14/2024 2:00 PM EDT Office Visit [facility] [address] [place] [address] Aebl Klein MD [address] [place] [address] 02/12/2025 2:30 PM EST Office Visit [facility] OPTOMETRY [address] [place] [address] TarCandice rodriguez, OD [address] [place] [address] documented as of this encounter Visit Diagnoses Not on filedocumented in this encounter Additional Health Concerns Assessment Noted Time PHQ-9 Depression Total Score: 20 025 1:53 PM EDT documented as of this encounter Care Teams Records Management Associate Relationship Specialty Start Date End Date Abel Klein MD [address] [place] [address] PCP - General Internal Medicine 10/12/13 documented as of this encounter
--- OUTSIDE RECORDS SUMMARY | 2024-10-26 16:13 | XMS_ITS | Clinical Summary ---
Author Organization [address] [facility] Address [address] [place] [address] Phone Care Team Providers Care Telegraph Lineman Name Role Phone Abel Looney MD Primary [...] Active Immunizations Name Administration Dates Next Due [facility] SARS-CoV-2 COVID-19, mRNA, LNP-S, preservative free 10/06/2021,03/12/2021,07/15/2020,2020 [...] PM EDT Office Visit [facility] - [place] [address] [address] [place] [phone] Jesse Wei, DPM [address] [facility] [address] [place] [address] Health Maintenance Due Date Last Done Comments [...] Insurance MEDICAID - [place] Care Teams Telegraph Lineman Relationship Specialty Start Date End Date Abel Looney MD [address] [place] [address] [place] [phone] PCP - General Internal Medicine 01/11/18
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
--- OUTSIDE RECORDS SUMMARY | 2024-10-26 16:13 | XMS_ITS | Clinical Summary ---
Author Organization [employer] Address [address] [facility] [address] 7[address] [place] [address] Care Team Providers Care Shipping Support Name Role Phone Abel Klein MD Primary [...] increase skin temp . 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 continue: sling that helps w pain tylenol prn up to 1gr Q 6 h ,advised to ask help from GUTTER INSTALLER to apply diclofenac topical lidoderm patches tramadol [...] increase skin temp . Was seen in [facility] had XR neg for fractures or dislocation , pt was pxed Tylenol ,tramadol 50 mg TID , also diclofenac topical but not able to apply by himself. States pain is not improving w pain meds. Was also placed in [facility] on a sling that he is [...] 6 h ,advised to ask help from GUTTER INSTALLER to apply diclofenac topical -prescribed lidoderm patches [...] PT did not go Will order a [facility] Preventative health care 10/13/2022 Assessment & Plan [...] used to be under the care of [facility] pain management center, He had a nerve [...] wnl. Pt was under the care of [facility] Pain management on 05/14/2015 underwent cryoablation of [...] sequences. Patient now under the care of [facility] Pain Management, last seen 11/04/[address] [facility] 08/2023 showed: IMPRESSION: Degenerative changes at L4-5 with left paracentral disc protrusion which causes mild narrowing of the left lateral recess and left neuroforamina. Minimal degenerative changes at L3-4. Pt reporting frequent falls, He would benefit from an increase in GUTTER INSTALLER hours Assessment & Plan (12/28/2023 2:45 PM EST): Pt here with chronic low back pain Uses Tylenol prn. with a previous Hx of Closed fracture of sternum Patient has persistent c/o left sided thoracic rib cage pain intensity 8/10 Currently on a regimen of Gabapentin 400 mg po QID. Pt. used to be under the care of [facility] pain management center, He had a nerve [...] wnl. Pt was under the care of [facility] Pain management on 05/14/2015 underwent cryoablation of [...] sequences. Patient now under the care of [facility] Pain Management, last seen 11/04/[address] [facility] 08/2023 showed: IMPRESSION: Degenerative changes at L4-5 with left paracentral disc protrusion which causes mild narrowing of the left lateral recess and left neuroforamina. Minimal degenerative changes at L3-4. Pt reporting frequent falls, requesting increase in GUTTER INSTALLER hours Assessment & Plan (09/23/2023 3:03 PM EDT): Pt here with chronic low back pain Uses Tylenol prn. with a previous Hx of Closed fracture of sternum Patient has persistent c/o left sided thoracic rib cage pain intensity 8/10 Currently on a regimen of Gabapentin 400 mg po QID. Pt. used to be under the care of [facility] pain management center, He had a nerve [...] wnl. Pt was under the care of [facility] Pain management on 05/14/2015 underwent cryoablation of [...] sequences. Patient now under the care of [facility] Pain Management, last seen 08/2023 they ordered an open MRI at [facility] Pt reporting frequent falls, requesting increase in GUTTER INSTALLER hours Will ask our Nurse to call [...] used to be under the care of [facility] pain management center, He had a nerve [...] wnl. Pt was under the care of [facility] Pain management on 05/14/2015 underwent cryoablation of [...] He would like to be referred to [facility] Pain Management Assessment & Plan (08/03/2023 4:47 PM EDT): Pt here with chronic low back pain Uses Tylenol prn. with a previous Hx of Closed fracture of sternum Patient has persistent c/o left sided thoracic rib cage pain intensity 8/10 Currently on a regimen of Gabapentin 400 mg po QID. Pt. used to be under the care of [facility] pain management center, He had a nerve [...] wnl. Pt was under the care of [facility] Pain management on 05/14/2015 underwent cryoablation of [...] used to be under the care of [facility] pain management center, He had a nerve [...] wnl. Pt was under the care of [facility] Pain management on 05/14/2015 underwent cryoablation of [...] used to be under the care of [facility] pain management center, He had a nerve [...] wnl. Pt was under the care of [facility] Pain management on 05/14/2015 underwent cryoablation of T7,8 and 9 intercostal nerves. Previously he was eferred back to the Pain clinic for f/u previously Depressive disorder 10/29/2011 Assessment & Plan (09/23/2023 3:06 PM EDT): Pt with history of depression He used to follow at [facility] He no longer has a psychotherapist His depression has serge exacerbated by the loss of his son who was recently killed. Pt was evaluated by our clinician Pt's depression has improved Doing better on Lexapro 10 mg po daily with good resuls 4 months Assessment & Plan (08/19/2023 3:54 PM EDT): Pt with history of depression He used to follow at [facility] He no longer has a psychotherapist His depression has serge exacerbated by the loss of his son who was recently killed. Pt was evaluated by our clinician Pt very depressed, but not suicidal Started Lexapro 10 mg po daily with good resuls 4 weeks follow up Assessment & Plan (08/03/2023 4:44 PM EDT): Pt with history of depression He used to follow at [facility] He no longer has a psychotherapist Today his depression has serge exacerbated by the loss of his son who was recently killed. Pt was evaluated by our clinician Pt very depressed, but not suicidal Plan: Start Lexapro 10 mg po daily 2 weeks follow up Assessment & Plan (10/13/2022 3:35 PM EDT): Pt here for a f/u He follows at [facility] He has a psychotherapist He does not [...] Encounters Date Type Department Care Team Description 10/25/[address] [address] Abel Klein MD Clearance Letter 10/24/2024 Orders Only [facility] External Provider, [facility] 10/24/2024 Results Follow-Up [address] [address] Lauryn Molina NP CBC auto differential, Basic Metabolic Panel 10/20/2024 2:45 PM EDT Office Visit [address] [address] Lauryn Molina NP Pre-op examination (Primary Dx); Bilateral leg numbness 10/20/2024 Travel 10/19/[address] [address] Shante Tolliver [place] CHARTPREP 10/04/[address] [address] Amanda Parks [place] Chart Prep 10/04/[address] [address] Abel Klein MD Primary insomnia 09/29/2024 Refill [facility] [address] [facility] [place] [address] Abel Klein MD 09/18/2024 Telephone [facility] MEDICINE [address] [facility] [place] [address] Abel Klein MD Appointment Request 09/12/2024 Refill [facility] MEDICINE [address] [facility] [place] [address] Abel Klein MD 09/07/2024 Telephone [facility] MEDICINE [address] [facility] [place] [address] Abel Klein MD Appointment Confirmation 08/20/2024 Refill [facility] [address] [facility] [place] [address] Abel Klein MD 08/18/2024 Refill [facility] MEDICINE [address] [facility] [place] [address] Abel Klein MD Mixed hyperlipidemia 08/15/2024 Refill [facility] MEDICINE [address] [facility] [place] [address] Abel Klein MD Mild intermittent asthma without complication 08/14/2024 Telephone [facility] MEDICINE [address] [facility] [place] [address] Abel Klein MD Med Refill 08/11/2024 Orders Only [facility] MEDICINE [address] [facility] [place] [address] Demetrice Huang ANP Acute pain of right shoulder (Primary Dx) 08/09/2024 Telephone [facility] MEDICINE [address] [facility] [place] [address] Abel Klein MD 08/09/2024 Telephone [facility] MEDICINE [address] [facility] [place] [address] Abel Klein MD Letter Request (The patient returned my call, regarding a letter for an increase in GUTTER INSTALLER hours. He stated that he receives 16.45 service hours through [employer]. He has more difficulty with ADL's due to a shoulder injury.) 08/09/2024 Telephone [facility] MEDICINE [address] [place] [address] Abel Klein MD Letter Request (I called the patient at [phone], regarding a request for a letter, for an increase in GUTTER INSTALLER hours. There was no answer, and I reached a recording stating that the mailbox is full. I then called his precision jig grinder Edwige, and reached a voicemail. I left a message, asking for the patient to return my call at ext [phone].) 08/01/2024 Telephone [facility] MEDICINE [address] [place] [address] Abel Klein MD 08/01/2024 Refill [facility] [address] [place] [address] Miya Lobato DO 07/27/2024 11:15 AM EDT Office Visit [facility] MEDICINE [address] [place] [address] Abel Klein MD Acute pain of right shoulder (Primary Dx); Opioid dependence in remission (CMS/HCC); Chronic bilateral low back pain with sciatica, sciatica laterality unspecified; Mild intermittent asthma without complication 07/27/2024 Travel 07/26/2024 Telephone [facility] MEDICINE [address] [place] [address] Abel Klein MD chart prep from Last 3 Months Immunizations Immunization Administration [...] Description 11/14/2024 2:00 PM EDT Office Visit [facility] MEDICINE [address] [place] [address] Abel Klein MD [address] [place] [address] 02/12/2025 2:30 PM EST Office Visit [facility] OPTOMETRY [address] [place] [address] Candice Edwards, OD [address] [place] [address] Health Maintenance Due Date Last Done Comments [...] Tdap) 06/05/2024 06/05/2014, 10/31/1999 COVID-19 Vaccine ( - season) 2024 12/25/2022, 10/06/2021, 03/12/2021, Additional [...] PM EDT Narrative 10/24/2024 3:35 PM EDT [place] [address] [address] Scan Report Signed Patient: Den Garcia MR#: [id number] : 1960 Acct:[id number] Age/Sex: 64 / M ADM Date: 10/24/24 Loc: HO.ED Attending Dr: Ordering Physician: Lizzie León Date of Service: 10/24/24 Procedure(s): CT head/brain wo IV con Accession Number(s): [id number] cc: Abel Looney MD; Lizzie León Report Number: [id number]: Total DLP = 758.00 mGy-cm Reason for [...] 10/24/24 1533 DD/ 1414 TD/TT: 10/24/24 1520 Song Plugger: Procedure Note Donotuseinterpreter, Image - 10/24/[address] [place] [address] [address] Scan Report Signed Patient: Den GarciaMR#: [id number] : 1960cct:[id number] Age/Sex: 64 / MADM Date: 10/24/24 Loc: HO.ED Attending Dr: Ordering Physician: Lizzie León Date of Service: 10/24/24 Procedure(s): CT head/brain wo IV con Accession Number(s): [id number] cc: Abel Looney MD; Lizzie León Report Number: [id number]: Total DLP = 758.00 mGy-cm Reason for [...] 10/24/24 1533 DD/ 1414 TD/TT: 10/24/24 1520 Song Plugger: [facility] External Provider IMG CT PROCEDURES Final Result * ECG 12 lead (10/20/2024 4:50 PM EDT) Lauryn Casas NP - 10/20/2024 4:50 PM EDT HR 56 bpm, normal axis, interval, morphology. Sinus zahra ECG us Lauryn Molina NP ECG ORDERABLES Final Result * (ABNORMAL) CBC auto differential (10/20/2024 3:50 PM EDT) White Blood Count 9.6 4.8 - 10.8 X10*3/uL [facility] Red Blood Count 4.05(L) 4.60 - 5.80 X10*6/uL [facility] Hemoglobin 12.6(L) 14.0 - 18.0 g/dl [facility] Hematocrit 37.5(L) 42.0 - 52.0 % [facility] Mean Corpuscular Volume 92.6 80.0 - 98.0 fL [facility] Mean Corpuscular Hemoglobin 31.1 27.0 - 33.0 pg [facility] Mean Corpuscular HGB Conc 33.6 31.0 - 36.0 g/dl [facility] Red Cell Distribution Width 12.3 11.0 - 16.0 % [facility] Platelet Count 328 160 - 400 X10*3/uL [facility] Mean Platelet Volume 9.2(L) 9.4 - 12.4 fL [facility] Neutrophils Percent Auto 51.0 45 - 73 % [facility] Imm Gran Pct Auto 0.3 0.0 - 0.4 % [facility] Lymphocytes Percent Auto 37.5 20 - 40 % [facility] Monocytes Percent Auto 7.2 2 - 11 % [facility] Eosinophils Percent Auto 3.2 0 - 4 % [facility] Basophils Percent Auto 0.8 0 - 2 % [facility] NRBC Pct Auto 0.0 0.0 - 0.2 /100WBC [facility] Neutrophils Absolute Auto 4.9 2.0 - 8.3 x10*3/uL [facility] Imm Gran Abs Auto 0.03 0.00 - 0.03 X10*3/uL [facility] Lymphocytes Absolute Auto 3.6 1.2 - 4.9 X10*3/uL [facility] Monocytes Absolute Auto 0.7 0.1 - 1.2 X10*3/uL [facility] Eosinophils Absolute Auto 0.3 0.0 - 0.4 X10*3/uL [facility] Basophils Absolute Auto 0.1 0.0 - 0.2 X10*3/uL [facility] NRBC Abs Auto 0.000 0.0 - 0.012 X10*3/uL [facility] Blood Venous blood specimen / Unknown 10/20/2024 3:50 PM EDT 10/20/2024 5:25 PM EDT [facility] LAB BLOOD ORDERABLES Final Resu lt Performing Organization Address City/[facility]/ZIP Co de Phone Number [facility] [address] [place] [address] [phone] * Basic Metabolic Panel (10/20/2024 3:50 PM EDT) Sodium 143 135 - 145 mmol/L [facility] Potassium 4.8 3.3 - 5.1 mmol/L [facility] Chloride 106 96 - 108 mmol/L [facility] Carbon Dioxide 29 22 - 29 mmol/L [facility] Anion Gap 13 12 - 20 [facility] Urea Nitrogen (BUN) 13 9 - 16 mg/dL [facility] Creatinine, Serum 1.22 0.5 - 1.4 mg/dL [facility] Estimated Glomerular Filt Rate 60 [facility] Comment:Chronic Kidney Disea se: Estimated GFR < 60 mL/min/[id number] Kidney Disease: Estimated GFR < 15 mL/min/1.73m2 Glucose 86 60 - 115 mg/dL [facility] Calcium 9.7 8.4 - 10.2 mg/dL [facility] Blood Venous blood specimen / Unknown 10/20/2024 3:50 PM EDT 10/20/2024 5:25 PM EDT [facility] [employer] LAB BLOOD ORDERABLES Final Resu lt Performing Organization Address City/[facility]/ZIP Co de Phone Number [facility] [address] [place] [address] [phone] * (ABNORMAL) Lipid Panel, Standard (09/20/2023 2:36 PM EDT) Triglycerides 298(H) <150 mg/dL [facility] Comment:Desirable Triglyceri de: less than 150 mg/dLBorderline High Triglyceride 150-199 mg/dLHigh Triglyceride: 200-499 mg/dLVery High Triglyceride: greater than or equal to 5OO mg/dL Cholesterol 200(H) <200 mg/dL [facility] Comment:Desirable Cholestero l: less than 200 mg/dLBorderline High Cholesterol: 200-239 mg/dLHigh Cholesterol: greater than 239 mg/dL LDL Cholesterol Calculated 100(H) <100 mg/dL [facility] Comment:Desirable LDL: less than 100 mg/dLNear Optimal/Above Optimal LDL: 110- 129 mg/dLBorderline High LDL: 130-159 mg/dLHigh LDL: 160-189 mg/dLVery High LDL: greater than or equal to 190 mg/dL HDL Cholesterol 41 >40 mg/dL [facility] Comment:Desirable HDL: great er than 40 mg/dL Note: This HDL assay may give artificially low results in patients with liver disease. Blood Venous blood specimen / Unknown 09/20/2023 2:36 PM EDT 09/20/2023 3:57 PM EDT Abel Jamil MD LAB BLOOD ORDERABLES Final Result Performing Organization Address [facility]/ZIP Co de Phone Number [facility] [address] [place] [phone] * Hepatitis C Antibody Reflex (10/13/2022 3:52 PM EDT) Hepatitis C Antibody Nonreactive Nonreactive [facility] Comment:Antibodies to HCV no t detected; does not exclude early acuteHCV infection. 10/13/2022 3:52 PM EDT 10/13/2022 5:29 PM EDT Abel Jamil MD LAB BLOOD ORDERABLES Final Result Performing Organization Address City/[facility]/ZIP Co de Phone Number [facility] [address] [place] [phone] * HIV Ab/Ag (JOLENE GIRON) (10/13/2022 3:52 PM EDT) HIV AB/AG Nonreactive Nonreactive [facility] Comment:HIV-1 p24 Ag and/or HIV-1/HIV-2 Ab not detected.A test result that is nonreactive does not exclude thepossibility of exposure to or infection with HIV-1 and/orHIV-2. Nonreactive results in this assay for individualswith prior exposure to HIV-1 and/or HIV-2 may be due toantigen and antibody levels that are below the limit ofdetection of this assay.The [employer] Set Up Mechanic HIV Ag/Ab Combo assay result andsupplemental assay results should be interpreted inconjunction with the patient's clinical presentation,history and other laboratory results. If the results areinconsistent with clinical evidence, additional testing issuggested to confirm the result. 10/13/2022 3:52 PM EDT 10/13/2022 5:29 PM EDT us Abel Jamil MD LAB BLOOD ORDERABLES Final Result [facility] [address] [place] [address] [phone] from Last 3 Months or Most Recently Relevant to Health Maintenance Insurance [facility] [place] AD[place] Care Teams Shipping Support Relationship Specialty Start Date End Date Abel Klein MD [address] [place] [phone] PCP - General Internal Medicine 10/12/13
--- OUTSIDE RECORDS SUMMARY | 2024-10-26 16:13 | XMS_ITS | Encounter Summary ---
Author Organization [employer] Address [address] [facility] 7t [place] [address] Care Team Providers Care [employer] Police Lieutenant Name Role Phone Abel Klein MD Primary Care Provide r Encounter Details Date Type Department Care Team (Late st Contact Info) Description 03/10/2022 Orders Only [facility] MEDICINE [address] [place] [address] Susy Ellington LPN Social History Tobacco Use [...] Visit [facility] MEDICINE [address] [place] [address] Abel Klein MD [address] [place] [address] 02/12/2025 2:30 PM EST Office Visit [facility] OPTOMETRY [address] [place] [address] Candice Edwards, OD [address] [place] [address] documented as of this encounter Visit Diagnoses Not on filedocumented in this encounter Care Teams [employer] Lieutenant Relationship Specialty Start Date End Date Abel Klein MD [address] [place] [address] PCP - General Internal Medicine 10/12/13 documented as of this encounter
--- OUTSIDE RECORDS SUMMARY | 2024-10-26 16:13 | XMS_ITS | Encounter Summary ---
Author Organization [employer] Address [address] [facility] [address] [place] [address] Care Team Providers Care Tractor Expert Name Role Phone Abel Klein MD Primary Care Provide r Encounter Details Date Type Department Care Team (Late st Contact Info) Description 08/09/2024 Telephone [facility] MEDICINE [address] [place], [place] [phone] Abel Klein MD [address] [place], [place] [phone] Social History Tobacco Use Types Packs/Day Years [...] Description 11/14/2024 2:00 PM EDT Office Visit [facility] [address] [place] [address] Abel Klein MD [address] [place] [address] 02/12/2025 2:30 PM EST Office Visit [facility] [address] [place] [address] TarCandice rodriguez, OD [address] [place] [address] documented as of this encounter Visit Diagnoses Not on filedocumented in this encounter Additional Health Concerns Assessment Noted Time PHQ-9 Depression Total Score: 20 025 1:53 PM EDT documented as of this encounter Care Teams Tractor Expert Relationship Specialty Start Date End Date Abel Klein MD [address] [place] [address] PCP - General Internal Medicine 10/12/13 documented as of this encounter
--- OUTSIDE RECORDS SUMMARY | 2024-10-26 16:13 | XMS_ITS | Encounter Summary ---
Author Organization [employer] Address [address] [address] [place] [address] Care Team Providers Care Manipulator Operator Name Role Phone Abel Klein MD Primary Care Provide r Encounter Details Date Type Department Care Team (Late st Contact Info) Description 04/02/2022 Orders Only [facility] [address] [place] [address] Miya Stovall LPN Social History Tobacco Use [...] 11/14/2024 2:00 PM EDT Office Visit [facility] MEDICINE [address] [place] [address] Abel Klein MD [address] [place] [address] 02/12/2025 2:30 PM EST Office Visit [facility] OPTOMETRY [address] [place] [address] Candice Edwards, OD [address] [place] [address] documented as of this encounter Visit Diagnoses Not on filedocumented in this encounter Care Teams Manipulator Operator Relationship Specialty Start Date End Date Abel Klein MD [address] [place] [phone] PCP - General Internal Medicine 10/12/13 documented as of this encounter
== END 2024-10-26 16:06 | disposition home or self-care (01) ==
LOC: HO.HGI 15:09
PROVIDERS: PCP Internal Medicine; Visit Provider Nurse Practitioner
DX: K59.04 Chronic idiopathic constipation (principal); K21.9 Gastro-esophageal reflux disease without esophagitis; K64.9 Unspecified hemorrhoids; Z55.0 Illiteracy and low-level literacy
CPT/HCPCS: 99213

== ENCOUNTER → 2024-10-26 15:09 | Outpatient (BNVA) | payer MEDICAID, SELFPAY | PROVIDERS: PCP Internal Medicine; Visit Provider Nurse Practitioner | DX: K59.04 Chronic idiopathic constipation (principal); K21.9 Gastro-esophageal reflux disease without esophagitis; K64.9 Unspecified hemorrhoids; Z55.0 Illiteracy and low-level literacy | CPT/HCPCS: 99212 ==